=== PATIENT | male | born 1935 | race Caucasian/White ===

== ENCOUNTER → 2016-05-01 | Outpatient (CLI) | payer BC ==
[~2016-05-01] MED LIST: CLB200 PO; DVNC160 PO; HYDR0.5T PO; INSDGI SC; METO5TAB25 PO; MULT-506 PO; NVLGI; OSTEOBIFLEX PO
[2016-05-03 06:07] LABS: ESTIMATED AVERAGE GLUCOSE 148 mg/dl; HA1C FLAG Normal (Normal)
== END | disposition home or self-care (01) ==
LOC: C.LAB 15:53
PROVIDERS: ATTEND Nurse Practitioner Adult Health
DX: E11.9 Type 2 diabetes mellitus without complications (principal)

== ENCOUNTER → 2016-05-13 | Outpatient (CLI) | payer BC ==
[2016-05-13 16:41] LABS: BASO % 0.2 %; BASO ABS # 0.01 K/uL (0-0.2); COMPLETE YES; EOS % 1.7 %; HEMATOCRIT 37.6 % (42-52); IG% 0.2 %; LYMPH % 23.1 %; MEAN CELL VOLUME 88.7 fL (80-100); MEAN CORPUSCULAR HEMOGLOBIN 31.4 pg (25-34); MEAN CORPUSCULAR HGB CONC 35.4 g/dl (32-36); MONO % 7.7 %; NEUT % 67.1 %; PLATELET COUNT 136 K/uL (130-400); RED BLOOD COUNT 4.24 M/uL (4.7-6.1); WHITE BLOOD COUNT 5.19 K/uL (4.8-10.8)
[2016-05-13 17:13] LABS: C-REACTIVE PROTEIN 0.43 mg/dl (0-0.29)
== END | disposition home or self-care (01) ==
LOC: C.LAB 15:22
PROVIDERS: ATTEND Pediatrics Pediatric Rheumatology
DX: M35.9 Systemic involvement of connective tissue, unspecified (principal)

== ENCOUNTER → 2016-07-26 | Outpatient (CLI) | payer BC ==
[2016-07-26 14:10] LABS: ESTIMATED AVERAGE GLUCOSE 137 mg/dl; HA1C FLAG Normal (Normal)
== END | disposition home or self-care (01) ==
LOC: C.LAB 12:01
PROVIDERS: ATTEND Nurse Practitioner Adult Health
DX: E11.9 Type 2 diabetes mellitus without complications (principal)

== ENCOUNTER → 2016-11-28 | Outpatient (CLI) | payer BC ==
[2016-11-29 07:00] LABS: ESTIMATED AVERAGE GLUCOSE 148 mg/dl; HA1C FLAG Normal (Normal)
== END | disposition home or self-care (01) ==
LOC: C.LAB 11:46
PROVIDERS: ATTEND Nurse Practitioner Adult Health
DX: E11.9 Type 2 diabetes mellitus without complications (principal)

== ENCOUNTER → 2016-12-02 | Outpatient (CLI) | payer BC ==
--- NOTE | 2016-12-02 11:01 | DIAGNOSTIC IMAGING REPORT ---
RIGHT SHOULDER MIN 2 VIEWS ROUTINE CLINICAL HISTORY: 81 years-old Male presenting with BILATERAL SHOULDER PAIN, GLUTEAL TENDINITIS Right. TECHNIQUE: Internal rotation, external rotation, and Grashey views of the right shoulder were obtained. COMPARISON: None. FINDINGS: Calcification along the superior aspect of the greater tubercle could suggest calcific tendinitis. Acromioclavicular and glenohumeral joints congruent. Mild degenerative changes of the acromioclavicular and glenohumeral joint suggested. Minimal superior subluxation of the humeral head. No acute fracture. IMPRESSION: 1. Findings suggestive of calcific tendinitis of the rotator cuff. 2. Mild degenerative changes of the glenohumeral and acromioclavicular joints. 3. No acute osseous injury. Electronically signed by: Feng Cam M.D. 12/02/2016 10:59 AM Dictated Date/Time: 12/02/2016 10:57 AM
--- NOTE | 2016-12-02 11:04 | DIAGNOSTIC IMAGING REPORT ---
LEFT SHOULDER MIN 2 VIEWS ROUTINE CLINICAL HISTORY: 81 years-old Male presenting with BILATERAL SHOULDER PAIN, GLUTEAL TENDINITIS. TECHNIQUE: Internal rotation, external rotation, and Grashey views of the left shoulder were obtained. COMPARISON: None. FINDINGS: No acute fracture or subluxation. Acromioclavicular and glenohumeral joints congruent. Mild degenerative changes of these joints may be present. Regional soft tissues within normal limits. IMPRESSION: No acute osseous injury. Mild degenerative changes of the glenohumeral and acromioclavicular joint suggested. Electronically signed by: Feng Cam M.D. 12/02/2016 11:02 AM Dictated Date/Time: 12/02/2016 11:01 AM
== END | disposition home or self-care (01) ==
LOC: C.RAD1850 10:27
PROVIDERS: ATTEND Internal Medicine Rheumatology
DX: M25.512 Pain in left shoulder (principal); M76.00 Gluteal tendinitis, unspecified hip; M62.89 Other specified disorders of muscle

== ENCOUNTER → 2017-01-10 | Outpatient (CLI) | payer BC ==
[2017-01-15 23:01] LABS: ANTI-CENTROMERE AB <1.0 NEG AI (<1.0 NEG); ANTI-SS-A <1.0 NEG AI (<1.0 NEG); ANTI-SS-B <1.0 NEG AI (<1.0 NEG); DNA ds CRITHIDIA NEGATIVE (NEGATIVE); Sm Antibody <1.0 NEG AI (<1.0 NEG)
== END | disposition home or self-care (01) ==
LOC: C.LAB 17:07
PROVIDERS: ATTEND Internal Medicine Rheumatology
DX: M35.9 Systemic involvement of connective tissue, unspecified (principal); M54.2 Cervicalgia; M75.30 Calcific tendinitis of unspecified shoulder

== ENCOUNTER → 2017-04-09 | Outpatient (CLI) | payer BC ==
[2017-04-11 07:38] LABS: HEMOGLOBIN A1C 7.3 % (4.5-5.6)
== END | disposition home or self-care (01) ==
LOC: C.LAB 14:59
PROVIDERS: ATTEND Nurse Practitioner Adult Health
DX: E11.9 Type 2 diabetes mellitus without complications (principal); Z79.4 Long term (current) use of insulin; C61 Malignant neoplasm of prostate

== ENCOUNTER → 2017-04-13 | Outpatient (CLI) | payer BC | END | disposition home or self-care (01) | LOC: C.LAB 15:16 | PROVIDERS: ATTEND Urology | DX: C61 Malignant neoplasm of prostate (principal) ==

== ENCOUNTER → 2017-04-13 | Outpatient (CLI) | payer BC ==
[2017-04-13 17:03] LABS: HEMATOCRIT 36.3 % (42-52); HEMOGLOBIN 12.8 g/dL (14.0-18.0); MEAN CORPUSCULAR HEMOGLOBIN 32.1 pg (25-34); MEAN CORPUSCULAR HGB CONC 35.3 g/dl (32-36); MEAN PLATELET VOLUME 12.1 fL (7.4-10.4); PLATELET COUNT 119 K/uL (130-400); RED CELL DISTRIBUTION WIDTH CV 12.3 % (11.5-14.5); RED CELL DISTRIBUTION WIDTH SD 41.2 fL (36.4-46.3); WHITE BLOOD COUNT 4.31 K/uL (4.8-10.8)
[2017-04-13 17:04] LABS: BASO % 0.7 %; BASO ABS # 0.03 K/uL (0-0.2); EOS % 1.9 %; EOS ABS # 0.08 K/uL (0-0.5); IG# 0.01 K/uL (0.00-0.02); LYMPH % 25.5 %; MONO % 9.5 %; MONO ABS # 0.41 K/uL (0.11-0.59); NEUT % 62.2 %; NEUT ABS # 2.68 K/uL (1.4-6.5)
== END | disposition home or self-care (01) ==
LOC: C.LAB 15:14
PROVIDERS: ATTEND Pediatrics Pediatric Rheumatology
DX: M35.9 Systemic involvement of connective tissue, unspecified (principal)

== ENCOUNTER → 2017-06-02 | Outpatient (CLI) | payer BC ==
[2017-06-02 17:09] LABS: BLOOD UREA NITROGEN 21 mg/dl (7-18); CALCIUM 8.7 mg/dl (8.5-10.1); CARBON DIOXIDE 30 mmol/L (21-32); CREATININE 1.06 mg/dl (0.60-1.40); GLUCOSE 184 mg/dl (70-99); SODIUM 135 mmol/L (136-145)
== END | disposition home or self-care (01) ==
LOC: C.LAB 16:11
PROVIDERS: ATTEND Internal Medicine
DX: M79.1 Myalgia (principal)

== ENCOUNTER → 2017-10-31 | Outpatient (CLI) | payer BC ==
[2017-11-01 06:00] LABS: HEMOGLOBIN A1C 7.7 % (4.5-5.6)
== END | disposition home or self-care (01) ==
LOC: C.LAB 17:16
PROVIDERS: ATTEND Nurse Practitioner Adult Health
DX: E11.9 Type 2 diabetes mellitus without complications (principal); Z79.4 Long term (current) use of insulin

== ENCOUNTER 2021-09-14 05:29 | Observation (INO) ==
--- NOTE | 2021-08-13 14:50 | PAT Medication Instructions ---
Medication Instructions Date of Service August 13, 2021 Home Medications Medication Instructions Recorded Dexcom G6 Redevelopment Specialist (blood-glucose #1 ea NS 04/10/19 meter,continuous) Dexcom G6 Transmitter #1 ea NS 04/10/19 (blood-glucose transmitter) Dexcom G6 Sensor (blood-glucose #3 ea NS 10/16/19 sensor) blood sugar diagnostic (OneTouch #400 ea 04/15/20 Verio test strips) BD Veo Insulin Syr (half unit) 0.3 #600 ea NS 10/02/20 mL 31 gauge x 15/64" (insulin syr/ndl U100 half edilma) chlorthalidone 25 mg tablet 25 mg PO DAILY #90 tab 05/29/21 pen needle, diabetic 32 gauge x #300 ea 06/04/2132" (BD Ultra-Fine Ryanne Pen Needle) escitalopram oxalate 10 mg tablet 10 mg PO QAM #90 tab 07/20/21 losartan 100 mg tablet 50 mg PO DAILY #90 tab 07/28/21 diclofenac sodium 1 % topical gel 4 g TOPICAL QID PRN #100 g 08/04/21 cyanocobalamin (vitamin B-12) 1,000 mcg capsule 1,000 mcg PO QAM ketorolac 0.5 % eye drops 1 drops OP QAM prednisolone acetate 1 % eye drops,suspension 1 drops OP Q OTHER DAY Dexcom G6 Redevelopment Specialist (blood-glucose meter,continuous) #1 ea Dexcom G6 Transmitter (blood-glucose transmitter) #1 ea Dexcom G6 Sensor (blood-glucose sensor) #3 ea blood sugar diagnostic (OneTouch Verio test strips) [id number] 5 mg-zeaxanth 1 mg-bilberry 7.5 mg-herbal capsule (Macular Health Formula) 1 cap PO QAM cholecalciferol (vitamin D3) 125 mcg (5,000 unit) capsule 125 mcg PO QAM BD Veo Insulin Syr (half unit) 0.3 mL 31 gauge x 15/64" (insulin syr/ndl U100 half edilma) fluticasone propionate 50 mcg/actuation nasal spray,suspension 1 spray INTRANASAL BID PRN chlorthalidone 25 mg tablet 25 mg PO DAILY pen needle, diabetic 32 gauge x 5/32" (BD Ultra-Fine Ryanne Pen Needle) escitalopram oxalate 10 mg tablet 10 mg PO QAM losartan 100 mg tablet 50 mg PO DAILY diclofenac sodium 1 % topical gel 4 g TOPICAL QID PRN insulin glargine 100 unit/mL subcutaneous solution (Lantus U-100 Insulin) 13 unit SQ HS Continue as directed ketorolac 0.5 % eye drops 1 drops OP QAM prednisolone acetate 1 % eye drops,suspension 1 drops OP Q OTHER DAY STOP taking 2 weeks before surgery [id number] 5 mg-zeaxanth 1 mg-bilberry 7.5 mg-herbal capsule (VisiQuate Health Formula) 1 cap PO QAM STOP taking 24 hours before surgery diclofenac sodium 1 % topical gel 4 g TOPICAL QID PRN DO NOT take the morning of surgery cyanocobalamin (vitamin B-12) 1,000 mcg capsule 1,000 mcg PO QAM cholecalciferol (vitamin D3) 125 mcg (5,000 unit) capsule 125 mcg PO QAM chlorthalidone 25 mg tablet 25 mg PO DAILY losartan 100 mg tablet 50 mg PO DAILY Take morning of surgery With a small sip of water, OTHERWISE NOTHING TO EAT OR DRINK AFTER MIDNIGHT: fluticasone propionate 50 mcg/actuation nasal spray,suspension 1 spray INTRANASAL BID PRN(if needed) escitalopram oxalate 10 mg tablet 10 mg PO QAM Take evening before surgery fluticasone propionate 50 mcg/actuation nasal spray,suspension 1 spray I NTRANASAL BID PRN(if needed) insulin glargine 100 unit/mL subcutaneous solution (Lantus U-100 Insulin) 13 unit SQ HS Other Notes If you have any questions please call us at [phone] or [phone] or [phone] or [phone]
--- NOTE | 2021-08-19 15:05 | Anesthesiology Consultation ---
Date of Service August 19, 2021 Assessment & Plan (1) Encounter for pre-operative examination: Chart Review Chart Review: Acceptable Risk for Surgery (pending cardio clearance (08/21/21) and preop Covid testing results ) and Patient seen in Pre Admission Testing Pt states that his Apple watch will report his HR going from 50 bpm to 120- 130bpms in the middle of the night while sleeping. Pt concerned with tachycardia. Did have NS V-tach in early recovery on 05/2020 stress ECHO. Will refer patient to cardio for evaluation to ensure further work up not needed prior to surgery. Pt scheduled for cardio appt 08/21/21 at 1115am- pt aware. Benadryl allergy - Check BSG AM DOS Per PAT appt on 08/19/21, patient denies any recent travel or large group activities. No known Covid positive exposures or Covid related symptoms. No known Covid infection in the past 90 days. Pt is vaccinated for Covid. Preop Covid testing scheduled 09/10/21 = will await results. Educated on importance of self quarantining, social distancing and wearing mask in public for the patient one week prior to surgery and after Covid testing done History Surgery Operation Date: 09/14/21 07:00 Proposed Procedures p Right Total Knee Arthroplasty - Ramone Rogers MD Height/Weight Height: 5 ft 9 in Weight: 85.8 kg Allergies Allergy/AdvReac Type Severity Reaction Status Date / Time pregabalin [From Lyrica] Allergy Unknown Unknown Verified 08/13/21 13:47 diphenhydramine AdvReac Unknown hyperactive Verified 08/18/21 09:20 [From Benadryl Allergy] prednisone AdvReac Unknown hyperglycem Verified 08/18/21 09:20 ia spironolactone AdvReac Unknown gynecomasti Verified 08/18/21 09:20 a testosterone AdvReac Unknown gynecomasti Verified 08/18/21 09:20 a BETADINE;IODINE Allergy Unknown Unknown Uncoded 06/03/21 09:17 beta blockers AdvReac Unknown Depression Uncoded 08/18/21 09:20 Medications Home Medications Medication Instructions Recorded Confirmed Last Taken cyanocobalamin (vitamin B-12) 1,000 mcg PO QAM cap 11/14/18 08/13/21 06/18/20 09:30 1,000 mcg capsule ketorolac 0.5 % eye drops 1 drops OP QAM ml 12/05/18 08/13/21 Unknown prednisolone acetate 1 % eye 1 drops OP Q OTHER DAY ml 12/05/18 08/13/21 06/18/20 drops,suspension Dexcom G6 Bracer (blood-glucose #1 ea NS 04/10/19 06/03/21 Unknown meter,continuous) Dexcom G6 Transmitter #1 ea NS 04/10/19 06/03/21 Unknown (blood-glucose transmitter) Dexcom G6 Sensor (blood-glucose #3 ea NS 10/16/19 06/03/21 Unknown sensor) blood sugar diagnostic (OneTouch #400 ea 04/15/20 06/03/21 Unknown Verio test strips) jwbaidtq-cvk-gixsqf 5 mg-zeaxanth 1 cap PO QAM cap 05/13/20 08/13/21 06/18/20 09:30 1 mg-bilberry 7.5 mg-herbal capsule ([employer] Formula) cholecalciferol (vitamin D3) 125 125 mcg PO QAM 05/29/20 08/13/21 06/18/20 09:30 mcg (5,000 unit) capsule BD Veo Insulin Syr (half unit) 0.3 #600 ea NS 10/02/20 06/03/21 Unknown mL 31 gauge x 15/64" (insulin syr/ndl U100 half edilma) fluticasone propionate 50 1 spray INTRANASAL BID PRN g 01/27/21 08/13/21 Unknown mcg/actuation nasal spray,suspension chlorthalidone 25 mg tablet 25 mg PO DAILY #90 tab 05/29/21 08/13/21 Unknown escitalopram oxalate 10 mg tablet 10 mg PO QAM #90 tab 07/20/21 08/13/21 Unknown losartan 100 mg tablet 50 mg PO DAILY #90 tab 07/28/21 08/13/21 Unknown diclofenac sodium 1 % topical gel 4 g TOPICAL QID PRN #100 g 08/04/21 08/13/21 Unknown insulin glargine 100 unit/mL 13 unit SQ HS 08/13/21 08/13/21 Unknown subcutaneous solution (Lantus U-100 Insulin) insulin aspart (niacinamide) 25 unit SUBCUT DAILY 90 Days #30 ml 08/18/21 Unknown (U-100) 100 unit/mL subcutaneous solution (Fiasp U-100 Insulin) Past Medical History Medical History Abnormal EKG 06/06/20 EKG showing LVH with QRS widening- DSE (ordered by cardio) was done 06/17/20 showing wall motion abnormalities seen at peak infusion involving the septum and inferior wall, unclear if it was related to ventricular ectopy or true ischemia. Per cardio addendum 06/08/20= "Based on the fact that patient did not have chest pain or ST deviations despite a HR in the 130's during DSE -- patient is an intermediate cardiac risk for his upcoming umbilical hernia repair." Anxiety DM type 2 (diabetes mellitus, type 2) IDDM Follows with endo Glucose stable per patient Hearing deficit BL WILSON Bilateral hearing aids History of obstructive sleep apnea No longer uses CPAP Was re-tested twice with sleep study- no longer has ALEISHA History of pressure ulcer Hx of of lower back ulcer (2007)- did see wound clinic- ulcer has healed History of prostate cancer 2002; s/p prostatectomy No chemo or XRT HTN (hypertension) Hypercholesterolemia Interstitial lung disease Per lung biopsy in 2007 Breathing stable Macular degeneration Minimal Osteoporosis Spinal stenosis Undifferentiated connective tissue disease Follows with Liudmila Naylor PA (rheum)- no meds currently (on Prednisone and Enbrel in the past) Last seen 05/06/21- stable- f/u in one year Exercise / Class Metabolic Activity III < 4 Walking/Shop/Light housework (one flight of stairs - no chest pain, mild SOB ) Past Family History Family History Brother Cancer Mother Cancer Other Breast cancer No family history of adverse response to anesthesia Denies family history of Ovarian cancer Prostate cancer Myocardial infarction Colorectal cancer Past Surgical History Surgical History H/O umbilical hernia repair Ventral hernia repair (06/19/20): LMA#5 at [facility]. No issues per post-op anesthesia progress note. History of cataract surgery L/R History of prostate biopsy History of prostatectomy History of thoracentesis PT UNSURE Status post lung surgery PT UNSURE- DONE AT [facility] Past Anesthesia History No Hx of Anesthesia Complications and No Family Hx of Anesthesia Complications History of PONV No Hx of PONV and No Hx of Motion Sickness Social History Smoking Status: Former smoker Do You Dip or Chew Tobacco: No Smoking End Date: 60 YRS AGO Hx Alcohol Use: Yes Alcohol type: wine alcohol intake frequency: 0-2 drinks per day (1 glass of wine/night ) Hx Substance Use: No substance use type: does not use Review of Systems Tachycardia at night Cough x years- stable Patient denies chest pain, shortness of breath, dyspnea on exertion, cough, wheezing. No hx of seizures, stroke, HI. No hx of blood clots or blood transfusions Physical Exam Vital Signs VITALS BP 121/67 P 73 TEMP 98.3 SP02 95% RESP 16 Constitutional no acute distress ENMT Mouth: + small oral opening; no TMJ clicking Thyromental Distance: > or= 3.5 Finger Breadths (3.5) Mallampati Class: II Neck + limited neck extension (mild to moderate ) Respiratory normal respiratory effort; no respiratory distress Auscultation: lungs clear to auscultation bilaterally; no wheezes Cardiovascular Rate/Rhythm: regular rate and regular rhythm Heart Sounds: no murmur Vessels: no carotid bruit Heart sounds mildly diminished throughout Musculoskeletal Spine: + pain with cervical ROM (mild stiffness ) Extremities: extremities normal to inspection Psychiatric Orientation: alert Lab Results Anesthesia Preop Results Results Anesthesia Widget: WBC 4.87 K/uL (4.8-10.8) 08/19/21 Hgb 12.2 g/dL (14.0-18.0) L 08/19/21 Hct 34.7 % (42-52) L 08/19/21 Plt 106 K/uL (130-400) L 08/19/21 Na 141 mmol/L (136-145) 08/19/21 K 3.2 mmol/L (3.5-5.1) L 08/19/21 Cl 105 mmol/L (98-107) 08/19/21 CO2 28 mmol/L (21-32) 08/19/21 BUN 33 mg/dl (6-23) H 08/19/21 Creat 1.20 mg/dl (0.6-1.4) 08/19/21 Glucose Level 177 mg/dl (70-99(Fasting)) H 08/19/21 PT 10.9 Seconds (9.0-12.0) 08/19/21 PTT 24.8 Seconds (21.0-31.0) 08/19/21 INR 1.0 (0.9-1.1) 08/19/21 HA1c 7.3 % (4.5-5.6) H 08/19/21 Blood Type A Positive 08/19/21 Antibody Screen NEGATIVE 08/19/21 Testing Laboratory Results Anemia chronic and stable Thrombocytopenia- chronic and stable Electrocardiogram Date: 08/19/21 Findings: + NSR @ (67bpm ) Left axis deviation LVH with QRS widening When compared to EKG from June 06, 2020no significant changes found per cardiology. Chest X-Ray Date: 08/19/21 Findings: + NAD The cardiomediastinal silhouette is unremarkable noting atherosclerotic calcification of the thoracic aorta. There is bibasilar scarring/atelectasis. Stress Test Date: 06/17/20 Type: DSE Resting LV Function: normal Nondiagnostic dobutamine echocardiogram due to failure to achieve target heart rate. Frequent ventricular ectopic beats including brief runs of nonsustained VT and early recovery. Wall motion abnormalities were seen at peak infusion involving the septum and inferior wall, unclear if this was related to ventricular ectopy or true isc hemia. Mild concentric LVH. Mild MR. Mild TR. Other Testing Aortailiac arterial duplex evaluation 08/14/2020 = mild ectasia of the abdominal aorta with mild atherosclerotic plaque. No evidence of stenosis with the aortic/iliac system. Lower extremity arterial duplex 07/14/2020 = <50% stenosis RT external iliac to popliteal artery. RT Sharron A, FOOT ROENTGENOLOGIST patent. JUSTIN occluded distally. <50% stenosis LT external iliac to popliteal artery. LT JUSTIN 75-99% stenosis. LT Sharron A, FOOT ROENTGENOLOGIST patent.
--- NOTE | 2021-09-10 22:52 | History and Physical Report ---
DATE OF ADMISSION: 09/14/2021 CHIEF COMPLAINT: Bilateral knee pain and discomfort, right side greater than left. HISTORY OF PRESENT ILLNESS: The patient is an 86-year-old fairly independent and active gentleman who has been a long-term patient of mine who presents now for surgical treatment of his right knee. I have been following him for years, putting shots in his knees, which have just become less successful over time. The steroid shots increase his blood glucose markedly. The gel shots have become less effective and the last shot did not work at all. The right knee is bothering him more than the left. It is hindering his ability to maintain an active lifestyle, which he truly values. He was pretty adamant about having his knee fixed. He does have a history of an autoimmune disorder, which is under pretty well good control. PAST MEDICAL HISTORY: Significant for, 1. History of unspecified autoimmune disorder, which has led to some pulmonary issues, but no current symptoms. 2. Hypertension. 3. Diabetes. 4. Prostate cancer, status post resection without recurrence. PAST SURGICAL HISTORY: Includes, 1. Prostate cancer. 2. Status post lung surgery for his autoimmune disorder. 3. Hernia. ALLERGIES: None. CURRENT MEDICATIONS: Includes, 1. Amlodipine. 2. Insulin. 3. Chlorthalidone. 4. Vitamin D3. 5. Vitamin B12. 6. Dexcom sensor. 7. Topical diclofenac. 8. Escitalopram. 9. Fluticasone nasal spray. 10. Insulin. 11. Losartan. 12. Various eyedrops for his eyes, SOCIAL HISTORY: An 86-year-old male. He is a . He lives in [place]. Lives alone. Does not smoke. FAMILY HISTORY: Noncontributory. REVIEW OF SYSTEMS: Significant for long-term diabetes. Denies any chest pain or recurrent shortness of breath. 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 PHYSICAL EXAMINATION: GENERAL: Shows a pleasant, healthy elderly male. Looks younger than stated age. HEENT: Benign. NECK: Supple. No lymphadenopathy. LUNGS: Clear to auscultation. HEART: Has a regular rate and rhythm. ABDOMEN: Soft, nontender, nondistended. EXTREMITIES: Grossly neurovascularly intact except as follows: Examination of the right knee reveals the patient walks with a slight bit of a limp. He has got varus alignment to his knee. He has got bony hypertrophy medially. He is tender over the medial joint line. Small knee effusion. Range of motion about 5 degrees short of full extension to 120 degrees of flexion. There is no instability. No pain with hip motion. 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 He has got complete loss of medial joint space in both knees. A little bit of tibial femoral subluxation and subchondral sclerosis. He has got significant patellofemoral disease, more on the right than the left. ASSESSMENT: An 86-year-old male with a history of multiple medical issues under pretty well good control. He is a long-term diabetic and has this autoimmune disorder, which is under control and relatively asymptomatic now. He is limited by his knee pain and would like to get his knee fixed. PLAN: We are going to proceed with right knee replacement. The risks and benefits of this procedure were explained to the patient and include but not limited to DVT, PE, , infection, neurological injury, vascular injury, bleeding problem, pain, limited range of motion, stiffness, failure to relieve symptoms, incomplete relief of symptoms, need for further surgery in the future, etc. The patient understands and desires to proceed. Informed consent was obtained. He does have this autoimmune disorder along with diabetes. We are going to probably put some vancomycin in the cement to prevent his risk for infection. He has seen cardiology and he has been cleared. He had a stress echo, which showed no signs of real ischemia recently. Creatinine is a little bit elevated. We will have to follow this and be careful with NSAID use. He is hoping to be discharged either to [facility] or [facility] [place] for a short rehabilitation stay. Job ID: [id number] [facility]
[2021-09-14] MEDS ORDERED: LR 500ML BOLUS, THEN 15ML/HR IV SCH (06:00)
[2021-09-14] MEDS ORDERED: LR 60ML/HR IV SCH (06:00)
[2021-09-14] MEDS ORDERED: FAMOTIDINE 20 MG TAB PO SCH (06:00)
[2021-09-14] MEDS ORDERED: TRANEXAMIC ACID 1,000 MG **IV Intra-op IV SCH (06:00)
[2021-09-14] MEDS ORDERED: ACETAMINOPHEN 500 MG TAB PO SCH (06:00)
[2021-09-14] MEDS ORDERED: METOCLOPRAMIDE HCL 10 MG TABLET PO SCH (06:00)
[2021-09-14] MEDS ORDERED: BUPIVACAINE LIPOSOME/PF 266 MG, BUPIVACAINE/EPINEPHRINE 50 ML, SODIUM CHLORIDE 0.9% 30 ... INFIL SCH (06:00)
[2021-09-14] MEDS ORDERED: ceFAZolin 2000MG 2,000 MG/15 ML SYR IV SCH (06:00)
[2021-09-14] MEDS ORDERED: CeleBREX 200 MG CAP PO SCH (06:00)
[2021-09-14] MEDS ORDERED: ROPIVACAINE 0.5% 5 MG/ML 30 ML VIAL ONE (06:23)
[2021-09-14] MEDS ORDERED: BUPIVACAINE 0.5 % 5 MG/1 ML PF 10ML VIAL ONE (06:23)
[2021-09-14] MEDS ORDERED: PROPOFOL IV EMULSION 10 MG/ML 20 ML VIAL IV ONE (06:25)
[2021-09-14] MEDS ORDERED: MIDAZOLAM HCL 1 MG/ML 2ML VIAL ONE ×2 (06:25→06:50)
[2021-09-14] MEDS ORDERED: SODIUM CHLORIDE 0.9% PF 50 ML VIAL ONE (06:42)
[2021-09-14] MEDS ORDERED: BUPIVACAINE/EPINEPHRINE 0.25% 1:200,000 30 ML VIAL ONE (06:42)
[2021-09-14] MEDS ORDERED: BUPIVACAINE LIPOSOME 1.3% 266 MG/20 ML VIAL ONE (06:42)
[2021-09-14] MEDS ORDERED: KETOROLAC 30 MG/ML VIAL IV PRN (06:47)
[2021-09-14] MEDS ORDERED: ONDANSETRON INJ 2 MG/ML 2 ML VIAL IV PRN ×2 (06:47→10:57)
[2021-09-14] MEDS ORDERED: ePHEDrine sulfate 50 MG/ML AMP IV PRN (06:47)
[2021-09-14] MEDS ORDERED: HYDROmorphone INJ 1 MG/ML SYRINGE IV PRN (06:47)
[2021-09-14] MEDS ORDERED: ATROPINE SULFATE 0.1 MG/ML 10ML SYR IV PRN (06:47)
--- NOTE | 2021-09-14 06:55 | History & Physical Bridge Note ---
Date of Service September 14, 2021 History & Physical Bridge Note I have examined the patient, reviewed the History & Physical and in the interval since the performance of the History & Physical I have noted the following changes of clinical significance: no changes noted
[2021-09-14] MEDS ORDERED: VANCOMYCIN HCL 1000MG/20ML VIAL ONE (07:30)
[2021-09-14] MEDS ORDERED: PHENYLEPHRINE HCL 10 MG/ML VIAL ONE (08:05)
[2021-09-14] MEDS ORDERED: ePHEDrine sulfate 50 MG/ML AMP ONE (08:05)
--- NOTE | 2021-09-14 09:07 | Operative Report ---
PG Post Operative Report Pre & Post Diagnosis Operation Date: 09/14/21 07:00 Pre-Op Diagnosis: Right Knee Advanced Degenerative Joint Disease Post-Op Diagnosis: Right Knee Advanced Degenerative Joint Disease I identified the patient and participated in the time-out.: Yes Procedure Operation Date: 09/14/21 07:00 Actual Procedures p Right Total Knee Arthroplasty(Right) - Ramone Rogers MD Surgeon Ramone Rogers MD Mental Hygienist Jay Montgomery PA-C Estimated Blood Loss 50 Findings Consistent with Post-Op Diagnosis Operative findings revealed advanced right knee tricompartment DJD. He had pretty extensive grade 4 [id number] disease in all 3 compartments. He had a varus deformity to his knee. Moderate-sized joint effusion. Fluids 1000 cc Specimens Right knee sent for pathology Drains None Anesthesia Type Spinal MAC Complications none Disposition Accompanied Patient To Recovery: No Indications Patient is an 86-year-old long-term patient of mine whose had a long history of bilateral knee pain discomfort right side greater than left. We have been treating for the past 10 years with for arthritic disease. Has failed conservative measures. He has been trying to live an independent lifestyle but have more difficulty due to his knee pain. He failed conservative measures and elected proceed with surgical treatment. The patient's been medically optimized. Description of Procedure Operative implants consist of: 1 Biomet Vanguard size 70 right posterior stabilized femoral component. 2. Biomet size 75 tibial tray. 3. 10 mm posterior stabilized polyethylene insert. 4. 34 x 8 and half all Paller patella. The patient was taken to the operating, identified, placed on the operating table supine position protectors were properly padded. IV antibiotics tried by anesthesia team. A spinal anesthetic and abductor canal block had provided in the holding area. Waggoner catheter was placed in sterile fashion. Right thigh tent was then placed in the right lower extremities then prepped and draped in usual sterile fashion. The right leg was elevated exsanguinated with use of an Esmarch in terms playset 300 mmHg. An anterior approach of the right knee was then performed to longitudinal incision centered over the patella. Sharp dissection was carried through subcutaneous tissue down the extensor mechanism. Medial parapatellar arthrotomy incision was made. Some subperiosteal dissection was carried out medially. The fat pad was dissected from Neath patella tendon. Lateral patellofemoral ligament was released. Patella subluxated laterally and the knee was flexed. The osteophytes taken off distal femur. The ACL and PCL were then released from distal femur and the tibia subluxated anteriorly. The external tibial alignment jig was then placed the interface the tibia and adjusted 16 mm medially. The proximal tibia was then cut to take about a millimeter bone from most deficient aspect of the medial tibial plateau. Some osteophytes taken off medial and posterior medially. The tibia sized to a size 75. We did downsize this in order to get appropriate rotation. Attention drawn the femur. The distal femur was entered with a sharp drill. Intramedullary canal was suction. A right 6 degree valgus cutting guide was placed. Distal femoral cutting block was pinned in place. Distal femoral cut was made to take an additional 3 mm of bone off distal femur. The femur was then sized to a size 70. The AP cutting block was pinned parallel to the epicondylar axis which was 4 degrees of external rotation. The anterior cut, anterior chamfer, posterior cut, posterior chamfer cuts were made. The box cutting guide was placed in the just slight laterally. The box cut was made. The knee was flexed. The remnants of the medial and lateral menisci were excised. The osteophytes were taken off the posterior aspect of femur. A trial femoral component was placed. The tibial tray was pinned in maximum external rotation and the drill and stem punch used to create defect in proximal tibia for the tibial tray. Knee was t hen trialed and the 10 mm insert fit most appropriately. Attention drawn the patella. The patella was cleaned of all soft tissues. Patella thickness measured 25 mm in thickness was cut down to 15. Was sized to a size 34 patella. The lug holes were drilled for the 34 patella. The lateral osteophytes removed. Patella button was placed. Knee was taken through range of motion patella tracked n icely with no thumbs test. Attention drawn to placing permanent components. Nupathe all trial components were removed. Bone plug was placed in the distal femur limit blood loss. Double batch Palacos G cement was mixed. I did add an additional gram of vancomycin due to his history of autoimmune disease along with diabetes. Biomet Morega Systemsguard size 70 right posterior stabilized femoral component, size 75 tibial tray, a 10 mm posterior stabilized polyethylene insert, and a 34 x 8 and half all Paller patella then cemented in place. The knee was brought out into full extension total cement hardened. Final cement check was then performed. Pericapsular tissues were injected with total of 1 cc of combination of 20 of Exparel, 30 cc normal saline, 50 cc of quarter percent Marcaine with epinephrine. Patient did receive 1 g tranexamic acid. The tourniquet was then let down for final turn time of 60 minutes. Hemostasis assured use electrocautery. Extensor mechanism closed with combination 1 PDS suture #1 Vicryl suture in [id number] fashion. Extensor mechanism checked found to be intact with subcutaneous tissue then closed with 2 Dexon suture in a buried interrupted fashion skin was closed with skin sky. Legs then cleaned and dried a sterile dressing was Xeroform, 4 x 4's, sterile cast padding, Israel bandage were applied. Patient then transferred to the recovery room in stable condition. The patient tolerated the procedure well and there were no complications. Jay Montgomery, my physician shop assistant, was present for the entire procedure. His assistance was essential and required for appropriate patient positioning, prepping and draping, surgical exposure, performing the technical details of the operation, placement the implants, closure of the wound, and placement of the sterile bandage. I attest to the content of the Intraoperative Record and any orders documented therein. Any exceptions are noted below.
--- NOTE | 2021-09-14 09:45 | XRay Report ---
XR knee RT 1 or 2V routine CLINICAL HISTORY: Postoperative evaluation. COMPARISON: Knee radiographs May 07, 2021. FINDINGS: Alignment of the total right knee arthroplasty is anatomic. No periprosthetic fracture or unexpected radiopaque foreign body. There are skin sky. IMPRESSION: Expected findings following total right knee arthroplasty. ACT 112: Negative or not required by law. Electronically signed by: Bryant Lisa M.D. 09/14/2021 9:44 AM
[2021-09-14] MEDS ORDERED: CARBOHYDRATES FOR HYPOGLYCEMIA PO PRN (10:57)
[2021-09-14] MEDS ORDERED: ALUMINUM/MAGNESIUM SUSP 30 ML UDC PO PRN (10:57)
[2021-09-14] MEDS ORDERED: MULTIVITAMIN TAB PO SCH (10:57)
[2021-09-14] MEDS ORDERED: bisacodyL 10 MG SUPP PR PRN (10:57)
[2021-09-14] MEDS ORDERED: [UNRECOGNIZED DRUG - OTHER] SQ SCH (10:57)
[2021-09-14] MEDS ORDERED: METOCLOPRAMIDE HCL INJ 5 MG/ML 2 ML VIAL IV PRN (10:57)
[2021-09-14] MEDS ORDERED: GLUCOSE 40% GEL 15 GM TUBE PO PRN (10:57)
[2021-09-14] MEDS ORDERED: GLUCOSE 10 TABS/TUBE PO PRN (10:57)
[2021-09-14] MEDS ORDERED: TAMSULOSIN HCL 0.4 MG CAP PO PRN (10:57)
[2021-09-14] MEDS ORDERED: DEXTROSE 50% 50 ML SYRINGE IV PRN (10:57)
[2021-09-14] MEDS ORDERED: NALOXONE HCL 0.4 MG/1 ML VIAL/CARP IV PRN (10:57)
[2021-09-14] MEDS ORDERED: PHARMACY GLYCEMIC MGMT CONSULT PRN (10:57)
[2021-09-14] MEDS ORDERED: INSULIN ASPART 100 UNIT/ML SQ SCH (10:57)
[2021-09-14] MEDS ORDERED: GLUCAGON FOR INJ 1 MG VIAL SQ PRN (10:57)
--- NOTE | 2021-09-14 11:43 | Anesthesiology Progress Note ---
Date of Service September 14, 2021 Anesthesia Post Procedure Vital Signs Vital Signs: Temp Pulse Pulse Resp BP Pulse Ox 09/14/21 10:45 60 16 110/55 L 98 09/14/21 10:30 57 L 14 114/54 L 96 09/14/21 10:15 53 L 17 116/46 L 94 09/14/21 10:05 52 L 18 116/58 L 95 09/14/21 09:55 36.1 C L 59 L 19 129/50 L 96 09/14/21 09:45 36.1 C L 59 L 21 122/52 L 95 09/14/21 09:35 53 L 13 121/51 L 99 09/14/21 09:25 55 L 16 126/52 L 99 09/14/21 09:15 54 L 16 116/51 L 100 09/14/21 09:05 55 L 14 114/52 L 100 09/14/21 08:55 36.0 C L 58 L 15 109/55 L 99 09/14/21 06:05 36.7 C 66 20 129/71 97 Transfer of Care Handoff Completed per policy Notes Mental Status: alert / awake / arousable Patient Amnestic to Procedure: Yes Nausea / Vomiting: adequately controlled Pain: adequately controlled Airway Patency, RR, SpO2: stable & adequate BP & HR: stable & adequate Hydration State: stable & adequate Anesthetic Complications: no major complications apparent
[2021-09-14] MEDS: SODIUM CHLORIDE 0.9% 1000ML 1,000 ML IV SCH ×2 (12:37→22:51)
[2021-09-14] MEDS: CEROVITE ADV FORMULA TAB PO SCH (13:17)
[2021-09-14] MEDS: CHOLECALCIFEROL 5,000 UNITS 125 MCG TAB PO SCH (13:18)
[2021-09-14] MEDS: CHLORTHALIDONE 25 MG TAB PO SCH (13:18)
[2021-09-14] MEDS: ASPIRIN 81 MG ECTAB PO SCH ×2 (13:18→22:35)
[2021-09-14] MEDS: ESCITALOPRAM OXALATE 10 MG TAB PO SCH (13:19)
[2021-09-14] MEDS: LOSARTAN POTASSIUM 50 MG TAB PO SCH (13:19)
[2021-09-14] MEDS: ACETAMINOPHEN 500 MG TAB PO SCH ×2 (13:20→22:42)
[2021-09-14] MEDS: DOCUSATE SODIUM 100 MG CAP PO SCH ×2 (13:20→22:35)
[2021-09-14] MEDS: CYANOCOBALAMIN (B-12) 500 MCG TABLET PO SCH (13:20)
[2021-09-14] MEDS: KETOROLAC 0.5% OP SOLN 5 ML BTL OP SCH (13:21)
[2021-09-14] MEDS: prednisoLONE acetate 1% OP SUSP 5 ML BTL OP SCH (13:23)
[2021-09-14] MEDS: INSULIN ASPART PER UNIT SC SCH ×3 (13:39→20:28)
[2021-09-14] MEDS: TAPENTADOL HCL ER 50 MG TABCR PO SCH ×2 (14:10→22:41)
[2021-09-14] MEDS: ceFAZolin 2000MG 2,000 MG/15 ML SYR IV SCH ×2 (14:22→23:23)
--- NOTE | 2021-09-14 14:30 | Pharmacy Report ---
Pharmacy Glycemic Short Note 2 - Date of Service September 14, 2021 - Glycemic Short BSG Results (Last 24 hours): 09/14/21 09/14/21 09/14/21 05:40 08:58 13:07 POC Glucose 212 H 167 H 218 H OUTPATIENT ANTIDIABETIC REGIMEN: * Fiasp aspart insulin total 25 units daily * Lantus 15 units HS ASSESSMENT: * 86 y/o M admitted for right total knee arthroplasty. Patient with history of Type 2 diabetes managed at home on basal and bolus insulin. * Will continue basal and bolus insulin while admitted. * Lantus at HS ordered with 20% reduction from home dose. Re-assess tomorrow. * Novolog ordered based on wt and stress between 2 and 3. * Patient did not take his HS Lantus dose last night which explains BSGs above 200 mg/dl at AM and pre-lunch checks today. PLAN FOR INPATIENT GLYCEMIC CONTROL: * Basal insulin * Lantus 12 units SQ HS * Bolus insulin * NovoLog per scale ACHS or Q6hrs while NPO * Goal Range: Low 110 mg/dL - High 140 mg/dL * Correction Factor: 25 mg/dL/unit * Nutritional / Prandial insulin per carb ratio of 1 unit per 8 grams CHO consumed
[2021-09-14] MEDS ORDERED: TRANEXAMIC ACID / 0.7% NACL 1,000 MG/100 ML BAG IV SCH (15:00)
[2021-09-14] MEDS: ASCORBIC ACID 500 MG TAB PO SCH (16:53)
[2021-09-14] MEDS: oxyCODONE HCL IR 5 MG TAB (IMMEDIATE RELEASE) PO PRN (18:02)
[2021-09-14] MEDS: HYDROmorphone INJ 0.5 MG/0.5 ML SYR IV PRN (19:46)
[2021-09-14] MEDS ORDERED: INSULIN GLARGINE SOLOSTAR 100 UNITS/ML 3 ML PEN SQ SCH (21:00)
[2021-09-14] MEDS: SENNA 8.6 MG TAB PO SCH (22:34)
[2021-09-15] MEDS: oxyCODONE HCL IR 5 MG TAB (IMMEDIATE RELEASE) PO PRN ×3 (01:16→21:53)
[2021-09-15] MEDS: ACETAMINOPHEN 500 MG TAB PO SCH ×3 (06:07→21:45)
[2021-09-15] MEDS: HYDROmorphone INJ 0.5 MG/0.5 ML SYR IV PRN (06:11)
[2021-09-15 07:59] LABS: Hematocrit (blood only) 32.7 % (42-52); Hemoglobin 11.1 g/dL (14.0-18.0); Mean Corpuscular Hemoglobin 31.6 pg (25-34); Mean Corpuscular Hgb Conc 33.9 g/dL (32-36); Mean Corpuscular Volume 93.2 fL (80-100); Mean Platelet Volume 12.7 fL (7.4-10.4); Platelet Count 103 K/uL (130-400); RDW Coefficient of Variation 13.4 % (11.5-14.5); RDW Standard Deviation 45.7 fL (36.4-46.3); Red Blood Count 3.51 M/uL (4.7-6.1); White Blood Count 8.15 K/uL (4.8-10.8)
[2021-09-15 08:18] LABS: BUN Creatinine Ratio 20.8 (10-20); Calcium 7.8 mg/dl (8.5-10.1); Creatinine Clr Calc Pharmacy 43.9 ml/min; Est GFR (African American) 60.5 ml/min; Est GFR (Non-African American) 52.2 ml/min; Potassium 3.4 mmol/L (3.5-5.1)
[2021-09-15] MEDS: CYANOCOBALAMIN (B-12) 500 MCG TABLET PO SCH (09:13)
[2021-09-15] MEDS: ESCITALOPRAM OXALATE 10 MG TAB PO SCH (09:13)
[2021-09-15] MEDS: CHOLECALCIFEROL 5,000 UNITS 125 MCG TAB PO SCH (09:14)
[2021-09-15] MEDS: LOSARTAN POTASSIUM 50 MG TAB PO SCH (09:14)
[2021-09-15] MEDS: ASCORBIC ACID 500 MG TAB PO SCH ×2 (09:15→16:37)
[2021-09-15] MEDS: ASPIRIN 81 MG ECTAB PO SCH ×2 (09:15→20:23)
[2021-09-15] MEDS: CEROVITE ADV FORMULA TAB PO SCH (09:15)
[2021-09-15] MEDS: DOCUSATE SODIUM 100 MG CAP PO SCH ×2 (09:16→20:23)
[2021-09-15] MEDS: KETOROLAC 0.5% OP SOLN 5 ML BTL OP SCH (09:16)
[2021-09-15] MEDS: TAPENTADOL HCL ER 50 MG TABCR PO SCH ×2 (09:27→20:21)
[2021-09-15] MEDS: INSULIN ASPART PER UNIT SC SCH ×4 (09:28→21:42)
[2021-09-15] MEDS: INSULIN GLARGINE SOLOSTAR 100 UNITS/ML 3 ML PEN SQ SCH ×3 (09:29→21:44)
[2021-09-15] MEDS: CHLORTHALIDONE 25 MG TAB PO SCH (10:14)
[2021-09-15] MEDS ORDERED: POTASSIUM CHLORIDE CRTAB 20 MEQ TABCR PO ONE ×2 (11:13→18:00)
--- NOTE | 2021-09-15 13:27 | Pharmacy Report ---
Pharmacy Glycemic Short Note 2 - Date of Service September 15, 2021 - Glycemic Short BSG Results (Last 24 hours): 09/14/21 09/14/21 09/14/21 16:18 17:04 20:25 Glucose POC Glucose 238 H 256 H 115 H 09/15/21 09/15/21 09/15/21 04:20 07:16 07:48 Glucose 236 H POC Glucose 166 H 246 H 09/15/21 09/15/21 12:11 12:13 Glucose POC Glucose 350 H* 338 H* OUTPATIENT ANTIDIABETIC REGIMEN: * Fiasp aspart insulin total 25 units daily * Lantus 13 units HS HbA1c: 7.3% (08/19/21) ASSESSMENT: 09/15/21 * Patient has good outpatient glycemic control, he attributes current BSGs to anxiety/stress * Patient refused basal insulin last evening and again this morning * BSGs elevated today undoubtedly related to lack of basal insulin on board (did not take day prior to surgery either) * Discussed with patient, he will accept home dose of basal insulin today, but only if it is dosed at HS * Suspect that BSGs will improve once basal insulin is on board 09/14/21 * 86 y/o M admitted for right total knee arthroplasty. Patient with history of Type 2 diabetes managed at home on basal and bolus insulin. * Will continue basal and bolus insulin while admitted. * Lantus at HS ordered with 20% reduction from home dose. Re-assess tomorrow. * Novolog ordered based on wt and stress between 2 and 3. * Patient did not take his HS Lantus dose last night which explains BSGs above 200 mg/dl at AM and pre-lunch checks today. PLAN FOR INPATIENT GLYCEMIC CONTROL: * Basal insulin * Lantus 13 units SQ HS * Bolus insulin * NovoLog per scale ACHS or Q6hrs while NPO * Goal Range: Low 110 mg/dL - High 140 mg/dL * Correction Factor: 30 mg/dL/unit * Nutritional / Prandial insulin per carb ratio of 1 unit per 8 grams CHO consumed
--- NOTE | 2021-09-15 14:58 | Progress Notes ---
DATE OF SERVICE: 09/15/2021. SUBJECTIVE: An 86-year-old gentleman postoperative day 1 from a right knee replacement. He is doing reasonably well. He is having pain, but nothing out of the ordinary or unexpected. Therapy went ok ay. He is hoping to go to [facility] for rehabilitation in a longterm facility stay as baldomero campos lives by himself. Denies any chest pain or shortness of breath. OBJECTIVE: VITAL SIGNS: Temperature 36.4. Vital signs are stable. PHYSICAL EXAMINATION: GENERAL: Shows a pleasant, elderly male. He is sitting up in bed and looks pretty comfortable. EXTREMITIES: Examination of the right leg reveals the leg to be well aligned. Dressing is clean, dr y and intact. He can dorsiflex and plantarflex his foot appropriately. He is neurologically intact. LABORATORY DATA: Hemoglobin 11.1. Hematocrit 32.7. Electrolytes: Potassium 3.4. Everything else stable. ASSESSMENT: An 86-year-old gentleman, postoperative day 1 from right knee replacement, doing reasona jocy well. Pain is controlled. He is neurologically intact. Potassium is a little low and we supple mented that already. PLAN: 1. DVT prophylaxis includes thigh-high TEDs, SCDs, and aspirin twice a day. 2. PT, OT, weightbear as tolerated. Right total knee protocol. 3. Pain control, doing okay with current pain regimen. 4. Hypokalemia. We will supplement that and recheck his labs in the morning. 5. Disposition: He is hoping to be discharged to [facility] for a rehab/longterm faci lity stay. supervisor gate services working on this. Job ID: [id number]
[2021-09-15] MEDS: FLUTICASONE PROPIONATE NA SPR 16 GM BTL NAE PRN (20:21)
[2021-09-15] MEDS: SENNA 8.6 MG TAB PO SCH (20:23)
[2021-09-16] MEDS: ACETAMINOPHEN 500 MG TAB PO SCH ×3 (05:53→21:22)
[2021-09-16 08:20] LABS: BUN Creatinine Ratio 23.5 (10-20); Calcium 7.7 mg/dl (8.5-10.1); Creatinine Clr Calc Pharmacy 41.6 ml/min; Est GFR (African American) 56.6 ml/min; Est GFR (Non-African American) 48.8 ml/min; Potassium 3.9 mmol/L (3.5-5.1)
[2021-09-16] MEDS: CHOLECALCIFEROL 5,000 UNITS 125 MCG TAB PO SCH (09:35)
[2021-09-16] MEDS: LOSARTAN POTASSIUM 50 MG TAB PO SCH (09:35)
[2021-09-16] MEDS: CEROVITE ADV FORMULA TAB PO SCH (09:35)
[2021-09-16] MEDS: ESCITALOPRAM OXALATE 10 MG TAB PO SCH (09:35)
[2021-09-16] MEDS: ASPIRIN 81 MG ECTAB PO SCH ×2 (09:35→20:36)
[2021-09-16] MEDS: CYANOCOBALAMIN (B-12) 500 MCG TABLET PO SCH (09:35)
[2021-09-16] MEDS: ASCORBIC ACID 500 MG TAB PO SCH ×2 (09:35→17:34)
[2021-09-16] MEDS: KETOROLAC 0.5% OP SOLN 5 ML BTL OP SCH (09:36)
[2021-09-16] MEDS: prednisoLONE acetate 1% OP SUSP 5 ML BTL OP SCH (09:36)
[2021-09-16] MEDS: CHLORTHALIDONE 25 MG TAB PO SCH (09:36)
[2021-09-16] MEDS: INSULIN ASPART PER UNIT SC SCH ×5 (09:41→21:22)
[2021-09-16] MEDS: TAPENTADOL HCL ER 50 MG TABCR PO SCH ×2 (09:46→20:36)
[2021-09-16] MEDS: DOCUSATE SODIUM 100 MG CAP PO SCH ×2 (09:46→20:37)
--- NOTE | 2021-09-16 12:02 | Orthopedic Progress Note ---
Date of Service September 16, 2021 Assessment & Plan (1) Status post total right knee replacement: He was seen and examined by Dr. Rogers today. PT/OT wbat, total knee protocol. Pain is controlled. DVT prophylaxis: teds, scd's and aspirin D/c planning: He was hoping to go to rehab/[facility] for a few days and then has some family coming. Continue d/c planning: rehab vs home with home health later this week Subjective . 86 year old patient POD #2 from right TKA. Doing reasonably well. Having some knee pain. He has been ambulating with PT. No chest pain or shortness of breath. Review of Systems All systems reviewed & are unremarkable except as noted in HPI & below. Physical Exam . alert and oriented. NAD. VSS Right Leg: Dressing being changed. Able to do straight leg raise. Able to dorsiflex and plantarflex. NVI Results & Data Results & Data Laboratory Results . Diagnostic Findings . PG Care Time/CCT Total # of Minutes Spent Total Time Spent with Patient: Total time spent is greater than 50% in coordination of care (as documented) at patient's floor/unit and/or counseling patient: Coding Level of Care Code 47004 Post Operative Follow-Up Diagnoses Status post total right knee replacement Z96.651
[2021-09-16] MEDS: FLUTICASONE PROPIONATE NA SPR 16 GM BTL NAE PRN (16:15)
[2021-09-16] MEDS: MAGNESIUM HYDROXIDE SUSP 30 ML UDC PO PRN (17:34)
[2021-09-16] MEDS: oxyCODONE HCL IR 5 MG TAB (IMMEDIATE RELEASE) PO PRN (17:34)
[2021-09-16] MEDS: SENNA 8.6 MG TAB PO SCH (20:38)
[2021-09-16] MEDS: INSULIN GLARGINE SOLOSTAR 100 UNITS/ML 3 ML PEN SQ SCH (21:21)
[2021-09-17] MEDS: ACETAMINOPHEN 500 MG TAB PO SCH ×3 (05:55→21:35)
--- NOTE | 2021-09-17 08:58 | Progress Notes ---
DATE OF SERVICE: 09/17/2021. SUBJECTIVE: An 86-year-old gentleman now postop day 3 from right knee replacement. He is resting co mfortably. No new complaints. Slowly getting better. Denies any new complaints. OBJECTIVE: VITAL SIGNS: Temperature is 36.8. Vital signs are stable. GENERAL: Shows a pleasant, elderly male. He is lying in bed, looks pretty comfortable this morning. EXTREMITIES: Examination of the right leg reveals the dressing to be in place. Just a slight bit of serosanguineous drainage on his dressing. Some moderate swelling. He can dorsiflex and plantarflex his foot appropriately. ASSESSMENT: An 86-year-old gentleman postoperative day 3 from right knee replacement, doing reasonab ly well. We are just kind of waiting for placement. Lives by himself. His daughter is coming and may be able to assist in his care at home. PLAN: 1. DVT prophylaxis includes thigh-high TEDs, SCDs, and aspirin twice a day. 2. PT, OT, weightbear as tolerated. Right total knee protocol. 3. Pain control, doing okay with current pain regimen. 4. Disposition: He is orthopedically okay for discharge any time. [facility], [facility]. He is happy to go to [facility], but not a bed available until [facility]. A possible treatment option would be discharge to home on Tuesday when his daughter comes from [facility] to stay with him. We will have manager social media continue to work on this. Job ID: [id number]
[2021-09-17] MEDS: CYANOCOBALAMIN (B-12) 500 MCG TABLET PO SCH (09:01)
[2021-09-17] MEDS: ASCORBIC ACID 500 MG TAB PO SCH ×2 (09:01→18:04)
[2021-09-17] MEDS: ESCITALOPRAM OXALATE 10 MG TAB PO SCH (09:02)
[2021-09-17] MEDS: LOSARTAN POTASSIUM 50 MG TAB PO SCH (09:03)
[2021-09-17] MEDS: CHOLECALCIFEROL 5,000 UNITS 125 MCG TAB PO SCH (09:03)
[2021-09-17] MEDS: CEROVITE ADV FORMULA TAB PO SCH (09:03)
[2021-09-17] MEDS: CHLORTHALIDONE 25 MG TAB PO SCH (09:03)
[2021-09-17] MEDS: ASPIRIN 81 MG ECTAB PO SCH ×2 (09:04→21:35)
[2021-09-17] MEDS: FLUTICASONE PROPIONATE NA SPR 16 GM BTL NAE PRN ×2 (09:04→21:42)
[2021-09-17] MEDS: DOCUSATE SODIUM 100 MG CAP PO SCH ×2 (09:04→21:34)
[2021-09-17] MEDS: prednisoLONE acetate 1% OP SUSP 5 ML BTL OP SCH (09:05)
[2021-09-17] MEDS: KETOROLAC 0.5% OP SOLN 5 ML BTL OP SCH (09:05)
[2021-09-17] MEDS: INSULIN ASPART PER UNIT SC SCH ×4 (09:13→21:34)
[2021-09-17] MEDS: MAGNESIUM HYDROXIDE SUSP 30 ML UDC PO PRN (09:14)
[2021-09-17] MEDS: TAPENTADOL HCL ER 50 MG TABCR PO SCH ×2 (09:14→21:31)
[2021-09-17] MEDS ORDERED: INSULIN GLARGINE SOLOSTAR 100 UNITS/ML 3 ML PEN SQ ONE (12:30)
--- NOTE | 2021-09-17 13:17 | Pharmacy Report ---
Pharmacy Glycemic Short Note 2 - Date of Service September 17, 2021 - Glycemic Short BSG Results (Last 24 hours): 09/16/21 09/16/21 09/17/21 16:53 20:52 08:20 POC Glucose 85 216 H 211 H 09/17/21 12:15 POC Glucose 240 H OUTPATIENT ANTIDIABETIC REGIMEN: * Fiasp aspart insulin total 25 units daily * Lantus 13 units HS HbA1c: 7.3% (08/19/21) ASSESSMENT: 09/17/21 * Patient's BSGs remain poorly controlled, as patient is refusing increased doses of basal insulin * Will adjust Novolog CF to match patient's home dose to encourage him to take it * Awaiting placement 09/15/21 * Patient has good outpatient glycemic control, he attributes current BSGs to anxiety/stress * Patient refused basal insulin last evening and again this morning * BSGs elevated today undoubtedly related to lack of basal insulin on board (did not take day prior to surgery either) * Discussed with patient, he will accept home dose of basal insulin today, but only if it is dosed at HS * Suspect that BSGs will improve once basal insulin is on board 09/14/21 * 86 y/o M admitted for right total knee arthroplasty. Patient with history of Type 2 diabetes managed at home on basal and bolus insulin. * Will continue basal and bolus insulin while admitted. * Lantus at HS ordered with 20% reduction from home dose. Re-assess tomorrow. * Novolog ordered based on wt and stress between 2 and 3. * Patient did not take his HS Lantus dose last night which explains BSGs above 200 mg/dl at AM and pre-lunch checks today. PLAN FOR INPATIENT GLYCEMIC CONTROL: * Basal insulin * Lantus 13-15 units SQ HS (see EHR for details) * Bolus insulin * NovoLog per scale ACHS or Q6hrs while NPO * Goal Range: Low 110 mg/dL - High 140 mg/dL * Correction Factor: 30 mg/dL/unit * Nutritional / Prandial insulin per carb ratio of 1 unit per 5 grams CHO consumed
[2021-09-17] MEDS: SENNA 8.6 MG TAB PO SCH (21:32)
[2021-09-17] MEDS: INSULIN GLARGINE SOLOSTAR 100 UNITS/ML 3 ML PEN SQ SCH (21:33)
[2021-09-18] MEDS: oxyCODONE HCL IR 5 MG TAB (IMMEDIATE RELEASE) PO PRN ×2 (00:43→18:02)
[2021-09-18] MEDS: ACETAMINOPHEN 500 MG TAB PO SCH ×3 (05:23→21:25)
[2021-09-18] MEDS: ASCORBIC ACID 500 MG TAB PO SCH ×2 (08:34→16:22)
[2021-09-18] MEDS: CYANOCOBALAMIN (B-12) 500 MCG TABLET PO SCH (08:35)
[2021-09-18] MEDS: CHLORTHALIDONE 25 MG TAB PO SCH (08:35)
[2021-09-18] MEDS: ASPIRIN 81 MG ECTAB PO SCH ×2 (08:36→20:36)
[2021-09-18] MEDS: CHOLECALCIFEROL 5,000 UNITS 125 MCG TAB PO SCH (08:36)
[2021-09-18] MEDS: DOCUSATE SODIUM 100 MG CAP PO SCH ×2 (08:37→20:37)
[2021-09-18] MEDS: LOSARTAN POTASSIUM 50 MG TAB PO SCH (08:37)
[2021-09-18] MEDS: CEROVITE ADV FORMULA TAB PO SCH (08:38)
[2021-09-18] MEDS: ESCITALOPRAM OXALATE 10 MG TAB PO SCH (08:38)
[2021-09-18] MEDS: prednisoLONE acetate 1% OP SUSP 5 ML BTL OP SCH (08:39)
[2021-09-18] MEDS: KETOROLAC 0.5% OP SOLN 5 ML BTL OP SCH (08:39)
[2021-09-18] MEDS: TAPENTADOL HCL ER 50 MG TABCR PO SCH ×2 (08:47→20:40)
[2021-09-18] MEDS: INSULIN ASPART PER UNIT SC SCH ×4 (08:53→20:47)
--- NOTE | 2021-09-18 09:43 | Pharmacy Report ---
Pharmacy Glycemic Sign Off Nt - Date of Service September 18, 2021 - Assessment & Plan ASSESSMENT: * Patient will not take basal insulin outside of HS. Currently on home dose. * Patient also does not want a correction facot other than what he uses at home * BSG's have been OK x24 hours, ranging 130-141 mg/dL, except for a 240 mg/dL at lunch yesterday * Discussed with Dr. Rogers - CAROLINE for pharmacy to sign off glycemic management PLAN FOR INPATIENT GLYCEMIC CONTROL: No changes needed to current regimen. * Continue basal insulin with Lantus 13-15 units SQ HS * Continue NovoLog per scale ACHS/Q6hrs while NPO * Goal range = 110 140 mg/dl * CF = 30 mg/dl/unit * CR = 1 unit for ever 5 g CHO consumed * Pharmacy is signing off of glycemic consult and will no longer be making adjustments to inpatient regimen. Please feel free to re-consult if needed. Thank you.
--- NOTE | 2021-09-18 10:00 | Progress Notes ---
DATE OF SERVICE: 09/18/2021. SUBJECTIVE: An 86-year-old gentleman now postop day 4 from right total knee replacement. He is doin g pretty well. Making some gradual progress. A little bit more difficult than he thought. No chest pain or shortness of breath. Not feeling dizzy or lightheaded. OBJECTIVE: VITAL SIGNS: Temperature 36.7. Vital signs are stable. PHYSICAL EXAMINATION: GENERAL: Shows a pleasant, elderly male. He is sitting up in his bedside chair, looks comfortable. EXTREMITIES: Examination of the right knee reveals some very mild swelling. He can dorsiflex and pl antarflex his foot appropriately. Cannot quite do a straight leg raise. Small amount of drainage in the front of his dressing. ASSESSMENT: An 86-year-old gentleman postoperative day 4 from right knee replacement, doing reasonab ly well. We are just waiting for placement. Pain is controlled. He is neurologically intact. PLAN: 1. DVT prophylaxis including thigh-high TEDs, SCDs, and aspirin twice a day. 2. PT, OT, weightbear as tolerated. Right total knee protocol. 3. Pain control, doing okay with current pain regimen. 4. Disposition: We are just waiting for placement. His daughter has come from out of town and may take him home today if he does okay in therapy. We will see how therapy goes on. Job ID: [id number]
[2021-09-18] MEDS: SENNA 8.6 MG TAB PO SCH (20:36)
[2021-09-18] MEDS: INSULIN GLARGINE SOLOSTAR 100 UNITS/ML 3 ML PEN SQ SCH (20:47)
[2021-09-19] MEDS: oxyCODONE HCL IR 5 MG TAB (IMMEDIATE RELEASE) PO PRN ×3 (00:13→18:19)
[2021-09-19] MEDS: ACETAMINOPHEN 500 MG TAB PO SCH ×3 (05:43→21:00)
[2021-09-19] MEDS: INSULIN ASPART PER UNIT SC SCH ×4 (10:03→22:06)
[2021-09-19] MEDS: ESCITALOPRAM OXALATE 10 MG TAB PO SCH (10:12)
[2021-09-19] MEDS: CHOLECALCIFEROL 5,000 UNITS 125 MCG TAB PO SCH (10:12)
[2021-09-19] MEDS: CHLORTHALIDONE 25 MG TAB PO SCH (10:13)
[2021-09-19] MEDS: CEROVITE ADV FORMULA TAB PO SCH (10:13)
[2021-09-19] MEDS: ASPIRIN 81 MG ECTAB PO SCH ×2 (10:14→20:56)
[2021-09-19] MEDS: ASCORBIC ACID 500 MG TAB PO SCH ×2 (10:14→17:48)
[2021-09-19] MEDS: LOSARTAN POTASSIUM 50 MG TAB PO SCH (10:15)
[2021-09-19] MEDS: DOCUSATE SODIUM 100 MG CAP PO SCH ×2 (10:15→20:58)
[2021-09-19] MEDS: CYANOCOBALAMIN (B-12) 500 MCG TABLET PO SCH (10:16)
[2021-09-19] MEDS: KETOROLAC 0.5% OP SOLN 5 ML BTL OP SCH (10:17)
[2021-09-19] MEDS: TAPENTADOL HCL ER 50 MG TABCR PO SCH ×2 (10:34→20:55)
--- NOTE | 2021-09-19 11:03 | Progress Notes ---
DATE OF SERVICE: 09/19/2021. SUBJECTIVE: An 86-year-old gentleman, now 5 days out from a right knee replacement. We have just be en waiting for placement for the most part. He is doing pretty well. Pain is controlled. No chest pain or shortness of breath. Not feeling dizzy or lightheaded. Just a little bit confused this morn ing as he says he is not quite awake yet. OBJECTIVE: VITAL SIGNS: Temperature 36.6. Vital signs are stable. PHYSICAL EXAMINATION: GENERAL: Shows a pleasant middle-aged male. He is just getting up and seems just slightly confused. EXTREMITIES: Examination of the right leg reveals the dressing to be clean, dry and intact. He is n eurologically intact. ASSESSMENT: An 86-year-old gentleman postoperative day 5 from a right knee replacement, mostly just waiting for placement. 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 No signs of problems. PLAN: 1. DVT prophylaxis includes thigh-high TEDs, SCDs, and aspirin twice a day. 2. PT, OT, weightbear as tolerated. Right total knee protocol. 3. Pain control, doing okay with current pain regimen. We will need to be careful with narcotics to avoid confusion. 4. Disposition: Just waiting for discharge. He is unclear of what he wants to do today whether to go home with his daughter or wait and go to [facility] later next week. We will see how things go in [facility] today. Job ID: [id number]
[2021-09-19] MEDS: SENNA 8.6 MG TAB PO SCH (20:58)
[2021-09-19] MEDS: INSULIN GLARGINE SOLOSTAR 100 UNITS/ML 3 ML PEN SQ SCH (21:00)
[2021-09-20] MEDS: oxyCODONE HCL IR 5 MG TAB (IMMEDIATE RELEASE) PO PRN ×2 (02:21→09:04)
[2021-09-20] MEDS: ACETAMINOPHEN 500 MG TAB PO SCH ×3 (06:06→21:57)
--- NOTE | 2021-09-20 08:08 | Orthopedic Progress Note ---
Date of Service September 20, 2021 Assessment & Plan (1) Status post total right knee replacement: He is struggling a little bit with his right knee. He understands the pain and swelling is to be expected, it was just a little bit more than he was initially thinking. He does live alone. He is on aspirin for DVT prophylaxis. He would like to be discharged to [facility]. He is orthopedically stable for discharge when medically ready. However, he will likely remain in the hospital throughout the holiday weekend. Ezio Thomas was seen and examined at bedside this morning. Overall he still struggling a little bit with his knee. He feels like he has a lot of swelling. He has a lot of pain. He has been having difficult time with physical therapy. He does not feel safe returning home. He has no other complaints. Review of Systems All systems reviewed & are unremarkable except as noted in HPI & below. Physical Exam On physical examination of the right knee, the dressing is clean and dry. His leg is out full extension. He has active dorsiflexion plantarflexion of the right ankle. Results & Data Results & Data Laboratory Results . Diagnostic Findings . PG Care Time/CCT Total # of Minutes Spent Total Time Spent with Patient: Total time spent is greater than 50% in coordination of care (as documented) at patient's floor/unit and/or counseling patient: Coding Level of Care Code 78438 Post Operative Follow-Up Diagnoses Status post total right knee replacement Z96.651
[2021-09-20] MEDS: DOCUSATE SODIUM 100 MG CAP PO SCH ×2 (09:04→20:15)
[2021-09-20] MEDS: TAPENTADOL HCL ER 50 MG TABCR PO SCH ×2 (09:05→20:16)
[2021-09-20] MEDS: INSULIN ASPART PER UNIT SC SCH ×4 (09:05→21:56)
[2021-09-20] MEDS: FLUTICASONE PROPIONATE NA SPR 16 GM BTL NAE PRN (09:06)
[2021-09-20] MEDS: CEROVITE ADV FORMULA TAB PO SCH (09:07)
[2021-09-20] MEDS: KETOROLAC 0.5% OP SOLN 5 ML BTL OP SCH (09:07)
[2021-09-20] MEDS: ESCITALOPRAM OXALATE 10 MG TAB PO SCH (09:07)
[2021-09-20] MEDS: CHOLECALCIFEROL 5,000 UNITS 125 MCG TAB PO SCH (09:07)
[2021-09-20] MEDS: LOSARTAN POTASSIUM 50 MG TAB PO SCH (09:07)
[2021-09-20] MEDS: CHLORTHALIDONE 25 MG TAB PO SCH (09:08)
[2021-09-20] MEDS: ASPIRIN 81 MG ECTAB PO SCH ×2 (09:08→20:15)
[2021-09-20] MEDS: CYANOCOBALAMIN (B-12) 500 MCG TABLET PO SCH (09:08)
[2021-09-20] MEDS: prednisoLONE acetate 1% OP SUSP 5 ML BTL OP SCH (09:12)
[2021-09-20] MEDS: ASCORBIC ACID 500 MG TAB PO SCH (17:31)
[2021-09-20] MEDS: SENNA 8.6 MG TAB PO SCH (20:16)
[2021-09-20] MEDS: INSULIN GLARGINE SOLOSTAR 100 UNITS/ML 3 ML PEN SQ SCH (21:56)
[2021-09-21] MEDS: ACETAMINOPHEN 500 MG TAB PO SCH ×3 (06:38→21:53)
--- NOTE | 2021-09-21 07:17 | Orthopedic Progress Note ---
Date of Service September 21, 2021 Assessment & Plan (1) Status post total right knee replacement: Overall he is doing fairly well, he is not having much pain in the right knee. He will be seen by physical therapy today for ambulation and range of motion exercises. He is on aspirin for DVT prophylaxis. We are currently awaiting placement in a rehab facility. Ezio Thomas was seen and examined at bedside this morning. He is still having some pain and cramping of the right knee. He participated well with physical therapy yesterday. He has been up and ambulating twice. He has no new complaints. . Review of Systems All systems reviewed & are unremarkable except as noted in HPI & below. Physical Exam On physical examination of the right knee, the dressing is clean and dry. His leg is out in full extension. He has active dorsiflexion plantarflexion of the right ankle. Results & Data Results & Data Laboratory Results . Diagnostic Findings . PG Care Time/CCT Total # of Minutes Spent Total Time Spent with Patient: Total time spent is greater than 50% in coordination of care (as documented) at patient's floor/unit and/or counseling patient: Coding Level of Care Code 50496 Post Operative Follow-Up Diagnoses Status post total right knee replacement Z96.651
[2021-09-21] MEDS: oxyCODONE HCL IR 5 MG TAB (IMMEDIATE RELEASE) PO PRN ×3 (07:31→20:32)
[2021-09-21] MEDS: ASCORBIC ACID 500 MG TAB PO SCH ×2 (08:32→17:30)
[2021-09-21] MEDS: CHOLECALCIFEROL 5,000 UNITS 125 MCG TAB PO SCH (08:33)
[2021-09-21] MEDS: CYANOCOBALAMIN (B-12) 500 MCG TABLET PO SCH (08:33)
[2021-09-21] MEDS: ASPIRIN 81 MG ECTAB PO SCH ×2 (08:33→20:28)
[2021-09-21] MEDS: CHLORTHALIDONE 25 MG TAB PO SCH (08:33)
[2021-09-21] MEDS: ESCITALOPRAM OXALATE 10 MG TAB PO SCH (08:34)
[2021-09-21] MEDS: CEROVITE ADV FORMULA TAB PO SCH (08:34)
[2021-09-21] MEDS: DOCUSATE SODIUM 100 MG CAP PO SCH ×2 (08:34→20:27)
[2021-09-21] MEDS: LOSARTAN POTASSIUM 50 MG TAB PO SCH (08:35)
[2021-09-21] MEDS: prednisoLONE acetate 1% OP SUSP 5 ML BTL OP SCH (08:36)
[2021-09-21] MEDS: KETOROLAC 0.5% OP SOLN 5 ML BTL OP SCH (08:36)
[2021-09-21] MEDS: FLUTICASONE PROPIONATE NA SPR 16 GM BTL NAE PRN (08:39)
[2021-09-21] MEDS: INSULIN ASPART PER UNIT SC SCH ×4 (08:43→20:26)
[2021-09-21] MEDS: TAPENTADOL HCL ER 50 MG TABCR PO SCH ×2 (08:43→20:27)
[2021-09-21] MEDS: AMINO ACID SYNERGY SCH ×2 (14:12→18:47)
[2021-09-21] MEDS: INSULIN GLARGINE SOLOSTAR 100 UNITS/ML 3 ML PEN SQ SCH (20:25)
[2021-09-21] MEDS: SENNA 8.6 MG TAB PO SCH (20:28)
[2021-09-22] MEDS: oxyCODONE HCL IR 5 MG TAB (IMMEDIATE RELEASE) PO PRN (04:07)
[2021-09-22] MEDS: ACETAMINOPHEN 500 MG TAB PO SCH ×3 (05:59→20:35)
--- NOTE | 2021-09-22 06:30 | Orthopedic Progress Note ---
Date of Service September 22, 2021 Assessment & Plan (1) Status post total right knee replacement: Overall he continues to improve. He still has weakness in the leg and does not feel safe returning home alone. We are awaiting discharge to a [facility] facility. He is on aspirin for DVT prophylaxis. He will be seen by physical therapy again today for ambulation and range of motion exercises. He can be discharged to rehab today if a bed becomes available. He will follow-up with orthopedics in 2 weeks. Ezio Thomas was seen in his room today. He was just walking to the bathroom when I entered the room. He participated well yesterday with physical therapy walking 75 feet twice. He still has some weakness in the leg. Overall he is improving. Review of Systems All systems reviewed & are unremarkable except as noted in HPI & below. Physical Exam On physical examination, the dressing over his knee is clean and dry. He is standing with a walker and able to put full weight on the right knee. Results & Data Results & Data Laboratory Results . Diagnostic Findings . PG Care Time/CCT Total # of Minutes Spent Total Time Spent with Patient: Total time spent is greater than 50% in coordination of care (as documented) at patient's floor/unit and/or counseling patient: Coding Level of Care Code 02232 Post Operative Follow-Up Diagnoses Status post total right knee replacement Z96.651
[2021-09-22] MEDS: LOSARTAN POTASSIUM 50 MG TAB PO SCH (08:44)
[2021-09-22] MEDS: ESCITALOPRAM OXALATE 10 MG TAB PO SCH (08:45)
[2021-09-22] MEDS: CEROVITE ADV FORMULA TAB PO SCH (08:45)
[2021-09-22] MEDS: CHLORTHALIDONE 25 MG TAB PO SCH (08:46)
[2021-09-22] MEDS: CYANOCOBALAMIN (B-12) 500 MCG TABLET PO SCH (08:46)
[2021-09-22] MEDS: ASPIRIN 81 MG ECTAB PO SCH ×2 (08:47→20:35)
[2021-09-22] MEDS: ASCORBIC ACID 500 MG TAB PO SCH ×2 (08:47→18:13)
[2021-09-22] MEDS: CHOLECALCIFEROL 5,000 UNITS 125 MCG TAB PO SCH (08:48)
[2021-09-22] MEDS: DOCUSATE SODIUM 100 MG CAP PO SCH ×2 (08:48→20:35)
[2021-09-22] MEDS: KETOROLAC 0.5% OP SOLN 5 ML BTL OP SCH (08:49)
[2021-09-22] MEDS: AMINO ACID SYNERGY SCH ×3 (08:50→18:13)
[2021-09-22] MEDS: MAGNESIUM HYDROXIDE SUSP 30 ML UDC PO PRN ×2 (08:50→15:08)
[2021-09-22] MEDS: TAPENTADOL HCL ER 50 MG TABCR PO SCH ×2 (08:52→20:35)
[2021-09-22] MEDS: FLUTICASONE PROPIONATE NA SPR 16 GM BTL NAE PRN (08:53)
[2021-09-22] MEDS: prednisoLONE acetate 1% OP SUSP 5 ML BTL OP SCH (08:54)
[2021-09-22] MEDS: INSULIN ASPART PER UNIT SC SCH ×4 (08:55→22:11)
[2021-09-22] MEDS: SENNA 8.6 MG TAB PO SCH (20:35)
[2021-09-22] MEDS: INSULIN GLARGINE SOLOSTAR 100 UNITS/ML 3 ML PEN SQ SCH (22:11)
[2021-09-23] MEDS: ACETAMINOPHEN 500 MG TAB PO SCH (04:22)
--- NOTE | 2021-09-23 06:26 | Orthopedic Progress Note ---
Date of Service September 23, 2021 Assessment & Plan (1) Status post total right knee replacement: Overall he continues to do well. Is not having too much pain in the knee. He will be seen by physical therapy today for ambulation and range of motion exercises. He is on aspirin for DVT prophylaxis. He can be discharged to a rehab facility later today. He will follow-up with orthopedics in 2 weeks. Ezio Thomas was seen and examined at bedside this morning. Overall is doing fairly well. He was having some pain in his knee last night but he says it is getting easier to ambulate. He has no new complaints. Review of Systems All systems reviewed & are unremarkable except as noted in HPI & below. Physical Exam On physical examination of his knee, the dressing is clean and dry. He is neurovascular intact.. Results & Data Results & Data Laboratory Results . Diagnostic Findings . PG Care Time/CCT Total # of Minutes Spent Total Time Spent with Patient: Total time spent is greater than 50% in coordination of care (as documented) at patient's floor/unit and/or counseling patient: Coding Level of Care Code 93170 Post Operative Follow-Up Diagnoses Status post total right knee replacement Z96.651
[2021-09-23] MEDS: CEROVITE ADV FORMULA TAB PO SCH (08:41)
[2021-09-23] MEDS: CHOLECALCIFEROL 5,000 UNITS 125 MCG TAB PO SCH (08:41)
[2021-09-23] MEDS: LOSARTAN POTASSIUM 50 MG TAB PO SCH (08:42)
[2021-09-23] MEDS: DOCUSATE SODIUM 100 MG CAP PO SCH (08:42)
[2021-09-23] MEDS: CYANOCOBALAMIN (B-12) 500 MCG TABLET PO SCH (08:42)
[2021-09-23] MEDS: KETOROLAC 0.5% OP SOLN 5 ML BTL OP SCH (08:42)
[2021-09-23] MEDS: ESCITALOPRAM OXALATE 10 MG TAB PO SCH (08:42)
[2021-09-23] MEDS: ASCORBIC ACID 500 MG TAB PO SCH (08:43)
[2021-09-23] MEDS: CHLORTHALIDONE 25 MG TAB PO SCH (08:43)
[2021-09-23] MEDS: AMINO ACID SYNERGY SCH (08:44)
[2021-09-23] MEDS: INSULIN ASPART PER UNIT SC SCH ×2 (08:52→12:58)
[2021-09-23] MEDS: TAPENTADOL HCL ER 50 MG TABCR PO SCH (08:54)
[2021-09-23] MEDS: ASPIRIN 81 MG ECTAB PO SCH (09:00)
--- NOTE | 2021-09-25 08:35 | Discharge Summary ---
Date of Service September 25, 2021 Discharge Data Procedures Performed Operation Date: 09/14/21 07:00 Actual Procedures p Right Total Knee Arthroplasty(Right) - Ramone Rogers MD Hospital Course (1) Status post total right knee replacement: This is a 86 year old patient admitted on 09/14/21 and underwent total knee arthroplasty. He tolerated the procedure well and there were no complications. Transferred to the PACU post op and later to the orthopedic floor for further care. He was given ancef for antibiotic prophylaxis. He was also given BASILIO stockings, SCDs, and aspirin for DVT prophylaxis. Hemoglobin, hematocrit, and vital signs were monitored during his hospital stay and remained stable. Did not require any blood transfusions. There were no complications during his hospital stay. He was awaiting placement at a nursing home/rehab facility. By post op day #9 the patient was tolerating a diabetic diet, pain was reasonably controlled with oral pain medicine, and he was participating in physical therapy. On post op day #9 the patient was discharged home and set up with home health care. He was given printed discharge instructions including prescriptions for extra strength tylenol, aspirin, and oxycodone. Continue physical therapy, weight bearing as tolerated. Continue BASILIO stockings. Follow up approximately 2 weeks post op or sooner if there are problems or concerns. Coding Level of Care Code None Diagnoses Status post total right knee replacement Z96.651
== END 2021-09-23 14:07 ==
LOC: ASU 05:29 → PACUINP 05:29 → 3W 12:21
DX: Z88.8 Allergy status to other drugs, medicaments and biological substances; Z85.46 Personal history of malignant neoplasm of prostate; Z88.3 Allergy status to other anti-infective agents; Z91.041 Radiographic dye allergy status; M17.11 Unilateral primary osteoarthritis, right knee; Z79.4 Long term (current) use of insulin

== ENCOUNTER 2024-06-19 08:42 | Observation (INO) ==
--- NOTE | 2024-03-27 14:49 | PAT Medication Instructions ---
Medication Instructions Date of Service March 27, 2024 Home Medications Medication Instructions Recorded acetaminophen 500 mg capsule 1,000 mg (2 x 500 mg) PO Q8H PRN 09/23/21 pain #180 caps blood glucose control, normal #1 ea 02/21/23 (OneTouch Verio Mid Control solution) amoxicillin 500 mg tablet 2,000 mg (4 x 500 mg) PO ONCE 04/22/23 prior to dental procedure #4 tabs insulin aspart (niacinamide) 24 unit subcut DAILY #30 mL 08/02/23 (U-100) 100 unit/mL subcutaneous solution (Fiasp U-100 Insulin) needle (disp) 18 G 18 gauge x 1" #50 ea 09/20/23 (BD Regular [place]) blood sugar diagnostic (OneTouch #100 ea 10/18/23 Verio test strips) safety needles 25 gauge x 5/8" (BD #50 ea 12/21/23 SafetyGlide Needle) syringe (disposable) 3 mL (BD #100 ea 12/21/23 Luer-Yee Syringe) syringe with needle 3 mL 25 x 5/8" #12 ea 01/19/24 (BD SafetyGlide Syringe) BD Veo Insulin Syr (half unit) 0.3 #600 ea 02/20/24 mL 31 gauge x 15/64" (insulin syr/ndl U100 half edilma) diclofenac sodium 1 % topical gel 4 g topical QID PRN Pain #100 grams 03/08/24 testosterone cypionate 100 mg/mL 60 mg (0.6 mL) subcut Q7D #10 mL 03/16/24 intramuscular oil (Depo-Testosterone) Medication List: ketorolac 0.5 % eye drops 1 drops ophthalmic (eye) QAM prednisolone acetate 1 % eye drops,suspension 1 drops ophthalmic (eye) Q2D uodmrxra-pzl-nebmui 5 mg-zeaxanth 1 mg-bilberry 7.5 mg-herbal capsule (Macular Health Formula) 1 cap PO QAM fluticasone propionate 50 mcg/actuation nasal spray,suspension 1 spray intranasal BID acetaminophen 500 mg capsule 1,000 mg (2 x 500 mg) PO Q8H PRN pain amoxicillin 500 mg tablet 2,000 mg (4 x 500 mg) PO ONCE prior to dental procedure chlorthalidone 50 mg tablet 25 mg PO QAM insulin aspart (niacinamide) (U-100) 100 unit/mL subcutaneous solution (Fiasp U- 100 Insulin) per sliding scale cyanocobalamin (vitamin B-12) 1,000 mcg capsule 2,000 mcg PO QAM insulin glargine 100 unit/mL subcutaneous solution (Lantus U-100 Insulin) 13 unit subcut HS diclofenac sodium 1 % topical gel 4 g topical QID PRN Pain testosterone cypionate 100 mg/mL intramuscular oil (Depo-Testosterone) 60 mg (0.6 mL) subcut Q7D biotin 5,000 mcg disintegrating tablet 5,000 mcg PO QAM calcitriol 0.25 mcg capsule 0.25 mcg PO QAM cholecalciferol (vitamin D3) 125 mcg (5,000 unit) tablet (Vitamin D3) 125 mcg PO QAM escitalopram oxalate 20 mg tablet 20 mg PO QAM [id number]-jqjgapvx-urublby 36,000-114,000-180,000 unit capsule,delay rel (Creon) 2 cap PO UD magnesium 200 mg tablet 400 mg PO QAM olmesartan 20 mg tablet 20 mg PO QAM potassium chloride 20 mEq tablet,extended release 20 meq PO QAM tamoxifen 10 mg tablet 10 mg PO QAM MEDICATION INSTRUCTIONS: Continue as directed ketorolac 0.5 % eye drops 1 drops ophthalmic (eye) QAM prednisolone acetate 1 % eye drops,suspension 1 drops ophthalmic (eye) Q2D fluticasone propionate 50 mcg/actuation nasal spray,suspension 1 spray intr anasal BID diclofenac sodium 1 % topical gel 4 g topical QID PRN Pain (do not apply after bathing prior to surgery) amoxicillin 500 mg tablet 2,000 mg (4 x 500 mg) PO ONCE prior to dental procedure ASK your surgeon for instructions testosterone cypionate 100 mg/mL intramuscular oil (Depo-Testosterone) 60 mg (0.6 mL) subcut Q7D tamoxifen 10 mg tablet 10 mg PO QAM STOP taking 2 weeks before surgery ukpyoqeo-lgs-cdozed 5 mg-zeaxanth 1 mg-bilberry 7.5 mg-herbal capsule ([employer] Health Formula) 1 cap PO QAM biotin 5,000 mcg disintegrating tablet 5,000 mcg PO QAM DO NOT take the morning of surgery calcitriol 0.25 mcg capsule 0.25 mcg PO QAM cyanocobalamin (vitamin B-12) 1,000 mcg capsule 2,000 mcg PO QAM chlorthalidone 50 mg tablet 25 mg PO QAM cholecalciferol (vitamin D3) 125 mcg (5,000 unit) tablet (Vitamin D3) 125 mcg PO QAM magnesium 200 mg tablet 400 mg PO QAM olmesartan 20 mg tablet 20 mg PO QAM potassium chloride 20 mEq tablet,extended release 20 meq PO QAM insulin aspart (niacinamide) (U-100) 100 unit/mL subcutaneous solution (Fiasp U- 100 Insulin) per sliding scale yikirt-adhizwnn-uszsyko 36,000-114,000-180,000 unit capsule,delay rel (Creon) 2 cap PO UD Take morning of surgery With a small sip of water, OTHERWISE NOTHING TO EAT OR DRINK AFTER MIDNIGHT: acetaminophen 500 mg capsule 1,000 mg (2 x 500 mg) PO Q8H PRN pain escitalopram oxalate 20 mg tablet 20 mg PO QAM Take evening before surgery acetaminophen 500 mg capsule 1,000 mg (2 x 500 mg) PO Q8H PRN pain insulin aspart (niacinamide) (U-100) 100 unit/mL subcutaneous solution (Fiasp U- 100 Insulin) per sliding scale insulin glargine 100 unit/mL subcutaneous solution (Lantus U-100 Insulin) 13 unit subcut HS Other Notes If you have any questions please call us at [phone] or [phone] or [phone] or [phone]
--- NOTE | 2024-04-03 13:03 | Anesthesiology Consultation ---
Date of Service April 03, 2024 Assessment & Plan (1) Encounter for pre-operative examination: - Check BSG DOS - Infectious disease screening: Per assessment on 04/03/24- No known recent infectious disease contacts or current infectious disease symptoms. - Outpatient joint assessment: Pt currently scheduled for inpatient pathway. If surgeon requests review for outpatient joint pathway, patient is not recommended candidate for outpatient joint program from anesthesia standpoint based on available information. - Surgical/anesthesia hx: * Right TKA (09/14/21): SAB at L3/4 (1 attempt) + regional at [facility] * B/L upper blepharoplasty with temporal brow lift (05/06/23): LMA#5, atraumatic at [facility] - PCP visit (04/02/24): Stable diabetes. Pancreatic exocrine insufficiency- GI/endo monitoring. Abnormal preop EKG- cardiac referral ordered ("EKG for preop purposes April 03, 2024 noted sinus bradycardia with left axis deviation and left bundle branch block possibility for inferior infarct"). Chronic, intermittent dry cough possibly r/t losartan- patient declined adjust ments/changes. Anemia/thrombocytopenia- referred to hematology (patient to call for appt). 2007 lung biopsy consistent with interstitial fibrosis. Multifatorial chronic tiredness and fatigue. Thyroid nodules being monitored. "medically stable to proceed for left knee surgical intervention/replacement but pending endocrinology review/hematology oncology follow-up/Cardiology for preop purposes " - GI visit (04/10/24): "Exocrine pancreatic insufficiency.. Will obtain testing as recommended by [facility] including cross sectional imaging of the pancreas as well as an elastase. Per the documentation, it does appear they are expecting follow-up with the patient after testing.. Continue Creon 2 caps before meals/snacks.. Further follow-up recommendations pending results of testing & [facility] input." > GI workload message 04/10/24, "I reviewed this patient's CT scan from [facility]. It appears he has findings of chronic pancreatitis, however the pancreatic duct is dilated concerning for pancreatolithiasis. This is an issue that our office does not manage and I would advise he either see [facility] for this abnormal CT result or see [facility] who also does biliary testing that we do not offer." - Cardiology visit (04/12/24): "..presumed ASCVD (based on age, risk factors, diminished pedal pulses), Frequent PVC's, Chronically Abnormal EKG (LBBB vs LVH with QRS widening), and Paroxysmal Ventricular Tachycardia who presents today for Preoperative Cardiac Evaluation. He is scheduled undergo Left TKA on 04/27/[address] Ramone Rogers. Patient remains active on a daily basis. He goes to the gym routinely where he does squats, lifts, rowing machine, and balance exercises in addition to calisthenics. He does not really have a cardio routine but he works out at a high pace.. He has not experienced any limiting cardiopulmonary symptoms with these activities. Patient has not experienced any angina pectoris, overt signs or symptoms of heart failure, nor has he had any symptoms suggestive of a sustained dysrhythmia. Patient does note occasional palpitations described as skipped beats -- historically these have corresponded with PVCs.. Based on his functional status without limiting cardiopulmonary symptoms I suspect that he is going to be a good surgical candidate, however based on his advanced age, diagnosis of diabetes mellitus and being limited in his aerobic activities -- I think it would be prudent to perform a Lexiscan Cardiolite to rule out any myocardial ischemia prior to surgery." - Endocrine Diabetes Ed/informatica developer visit (04/17/24): "This was to be a follow up prior to knee surgery however as you shared you have more tests that need to be done. Your blood sugars are relatively consistent since November. You shared that you are sleeping in more in the morning. If you do this you notice your blood sugars rise without food. YOu do have coffee and some people see an increase because of the caffeine. Please do not act upon this just wait until you eat and take care of it if a correction is needed. Occasionally you may miss your Creon. I wonder if you see blood sugars after meals hard to explain it may be a digestion issue with food and meal time insulin? You will see if there is a pattern as you continue to track and record your information. You take your hearing aids when you sleep. You can not hear the Dexcom or [place] alarms. You can feel the vibration. I suggest trying to place the reader under your pillow - in the case." - Hematology visit (04/19/24): "Borderline labs, may be related to his connective tissue disease and chronic inflammatory state. Or there may be low-level MDS. In any case I do not see that he warrants a bone marrow biopsy..At this point I recommend monitoring these labs regularly. He will return to clinic in 3 months.. Even if we find diagnosis of myelodysplastic syndrome he may not qualify for any kind of treatment given the low risk MDS at this point." - Thrombocytopenia: Updated labs 04/19/24 note stable thrombocytopenia at 77. Reviewed with Dr. Boo. Will check CBCD/T&S DOS. Ultimate anesthesia type determination based upon DOS labs. Surgeon's office made aware of plan (advised to contact us if surgeon has any further questions/guidance regarding thrombocytopenia from their perspective- no definitive plan for perioperative platelets at this time. Further decision making after DOS level recheck. OR/Miguel with blood bank aware. - Pending: LBBB + possible inferior infarct on preop EKG. PCP referred patient to cardiology. Per preop [facility] cardiac evaluation appt, preop stress test being arranged. Awaiting cardiology-ordered preop stress test ([facility] cardio, date 04/25). Patient otherwise acceptable risk for surgery. Chart Review Chart Review: Patient seen in Pre Admission Testing Teaching & Discussion Pre-Anesthesia Teaching/Discussion Notes: Instructed NPO after midnight before surgery,except medications with 15 cc of water. Medication instructions provided according to the PAT guidelines. History Surgery Operation Date: 04/27/24 10:40 Proposed Procedures p Left Total Knee Arthroplasty - Ramone Rogers MD Height/Weight Height: 5 ft 9 in Weight: 85.5 kg Allergies Allergy/AdvReac Type Severity Reaction Status Date / Time prednisone Allergy Intermediate hyperglycem Verified 04/12/24 14:10 ia pregabalin [From Lyrica] Allergy Unknown Unknown Verified 04/12/24 14:10 diphenhydramine AdvReac Intermediate hyperactive Verified 04/12/24 14:10 [From Benadryl Allergy] spironolactone AdvReac Intermediate gynecomasti Verified 04/12/24 14:10 a testosterone AdvReac Intermediate gynecomasti Verified 04/12/24 14:10 a beta blockers AdvReac Intermediate Depression Uncoded 04/12/24 14:10 Medications Home Medications Medication Instructions Recorded Confirmed Last Taken ketorolac 0.5 % eye drops 1 drops ophthalmic (eye) QAM 12/05/18 04/12/24 09/02/22 21:00 prednisolone acetate 1 % eye 1 drops ophthalmic (eye) Q2D 12/05/18 04/12/24 09/02/22 08:00 drops,suspension zvujpggp-gey-jnykrr 5 mg-zeaxanth 1 cap PO QAM 05/13/20 04/12/24 09/02/22 08:00 1 mg-bilberry 7.5 mg-herbal capsule ([employer] Formula) fluticasone propionate 50 1 spray intranasal BID 01/27/21 04/12/24 09/02/22 08:00 mcg/actuation nasal spray,suspension acetaminophen 500 mg capsule 1,000 mg (2 x 500 mg) PO Q8H PRN 09/23/21 04/12/24 09/01/22 pain #180 caps blood glucose control, normal #1 ea 02/21/23 04/12/24 Unknown (OneTouch Verio Mid Control solution) amoxicillin 500 mg tablet 2,000 mg (4 x 500 mg) PO ONCE 04/22/23 04/12/24 Unknown prior to dental procedure #4 tabs chlorthalidone 50 mg tablet 25 mg PO QAM 06/06/23 04/12/24 Unknown needle (disp) 18 G 18 gauge x 1" #50 ea 09/20/23 04/12/24 Unknown (BD Regular [place]vel [place]) blood sugar diagnostic (OneTouch #100 ea 10/18/23 04/12/24 Unknown Verio test strips) blood-glucose sensor (Dexcom G7 12/05/23 04/12/24 Unknown Sensor device) cyanocobalamin (vitamin B-12) 2,000 mcg PO QAM 12/05/23 04/12/24 Unknown 1,000 mcg capsule safety needles 25 gauge x 5/8" (BD #50 ea 12/21/23 04/12/24 Unknown SafetyGlide Needle) syringe (disposable) 3 mL (BD #100 ea 12/21/23 04/12/24 Unknown Luer-Yee Syringe) syringe with needle 3 mL 25 x 5/8" #12 ea 01/19/24 04/12/24 Unknown (BD SafetyGlide Syringe) BD Veo Insulin Syr (half unit) 0.3 #600 ea 02/20/24 04/12/24 Unknown mL 31 gauge x 15/64" (insulin syr/ndl U100 half edilma) diclofenac sodium 1 % topical gel 4 g topical QID PRN Pain #100 grams 03/08/24 04/12/24 Unknown testosterone cypionate 100 mg/mL 60 mg (0.6 mL) subcut Q7D #10 mL 03/16/24 04/12/24 Unknown intramuscular oil (Depo-Testosterone) biotin 5,000 mcg disintegrating 5,000 mcg PO QAM 03/27/24 04/12/24 Unknown tablet calcitriol 0.25 mcg capsule 0.25 mcg PO QAM 03/27/24 04/12/24 Unknown cholecalciferol (vitamin D3) 125 125 mcg PO QAM 03/27/24 04/12/24 Unknown mcg (5,000 unit) tablet (Vitamin D3) escitalopram oxalate 20 mg tablet 20 mg PO QAM 03/27/24 04/12/24 Unknown jvcgcu-axeqzcyw-fxjaqcd 2 cap PO UD 03/27/24 04/12/24 Unknown 36,000-114,000-180,000 unit capsule,delay rel (Creon) magnesium 200 mg tablet 400 mg PO QAM 03/27/24 04/12/24 Unknown potassium chloride 20 mEq 20 meq PO QAM 03/27/24 04/12/24 Unknown tablet,extended release tamoxifen 10 mg tablet 10 mg PO QAM 03/27/24 04/12/24 Unknown insulin glargine 100 unit/mL 13 unit (0.13 mL) subcut HS #20 mL 04/18/24 Unknown subcutaneous solution (Lantus U-100 Insulin) olmesartan 20 mg tablet 10 mg (1/2 x 20 mg) PO QAM #45 tabs 04/18/24 Unknown insulin aspart (niacinamide) See Rx Instructions subcut DAILY 04/20/24 Unknown (U-100) 100 unit/mL subcutaneous #30 mL solution (Fiasp U-100 Insulin) Past Medical History Medical History Anxiety Arthritis of knee, left Chronic fatigue Chronic kidney disease DM type 2 (diabetes mellitus, type 2) IDDM Follows with endo Edema RLE lymphedema/LLE mild edema Wears compression stockings constantly Exocrine pancreatic insufficiency Chronic diarrhea- Controlled with Creon Hearing deficit Bilateral hearing aids History of anemia History of depression History of obstructive sleep apnea No longer uses CPAP Was re-tested twice with sleep study- no longer has ALEISHA per patient History of pressure ulcer Hx of of lower back ulcer (2007)- did see wound clinic, ulcer healed Concerned with positioning/similar issues happening with upcoming surgical course History of prostate cancer 2002; s/p prostatectomy No chemo or XRT History of thrombocytopenia 07/2023- platelets 72, 12/30/23- platelets 84 Per [facility] [place]CP records- aware, unknown etiology, ? r/t autoimmune condition HTN (hypertension) Hypercholesterolemia Hx Interstitial lung disease Per lung biopsy in 2007 Loose body of left knee Macular degeneration "Minimal" Neuropathy Nontoxic multinodular goiter Osteoporosis Primary hypogonadism in male Raynaud's disease without gangrene Per records, patient unsure Spinal stenosis Undifferentiated connective tissue disease Followed with rheum Exercise / Class Metabolic Activity II 4-5 Yardwork/Stairs/Walk up hill Past Family History Family History Brother Cancer Mother Cancer Other Breast cancer No family history of adverse response to anesthesia Denies family history of Ovarian cancer Prostate cancer Myocardial infarction Colorectal cancer Past Surgical History Surgical History H/O umbilical hernia repair Ventral hernia repair (06/19/20): LMA#5 at [facility] History of cataract surgery L/R History of colonoscopy History of prostate biopsy History of prostatectomy 2002 History of thoracentesis Per remote records, patient unsure History of total right knee replacement Right TKA (09/14/21): SAB at L3/4 (1 attempt) + regional at [facility] Hx of blepharoplasty B/L upper blepharoplasty with temporal brow lift (05/06/23): LMA#5, atraumatic at [facility] Status post lung surgery "to straighten lung, it was sticking to the side of the lung cavity" (2012) Past Anesthesia History No Hx of Anesthesia Complications and No Family Hx of Anesthesia Complications History of PONV No Hx of PONV and No Hx of Motion Sickness Social History Smoking Status: Former smoker Do You Dip or Chew Tobacco: No Smoking End Date: Quit 60 years ago (for 2 years only) Hx Alcohol Use: Yes Alcohol type: wine alcohol intake frequency: 0-2 drinks per day Hx Substance Use: No substance use type: does not use Review of Systems Patient denies chest pain, shortness of breath, dyspnea on exertion, fever, chills, cough, wheezing, palpitations. Physical Exam Vital Signs BP 131/71 P 51 TEMP 97.5 SP02 95%RA RESP 16 Physical Mildly decreased cervical extension range of motion. Full TMJ range of motion. TMD >3.5 finger breaths Mallampati Score II Dentition: lower front missing, + several caps Lungs: clear throughout to auscultation Cardiac: regular rate and rhythm, no murmurs noted Spine: normal Carotid arteries: negative bruit Extremities: RLE calf edema (chronic)- wearing compression stocking Lab Results Anesthesia Preop Results Results Anesthesia Widget: WBC 4.37 K/ul (4.8-10.8) L 04/19/24 Hgb 12.2 g/dl (14.0-18.0) L 04/19/24 Hct 36.1 % (42.0-52.0) L 04/19/24 Plt 77 K/uL (130-400) L 04/19/24 Na 144 mmol/L (136-145) 04/19/24 K 3.3 mmol/L (3.5-5.1) L 04/19/24 Cl 106 mmol/L (98-107) 04/19/24 CO2 33 mmol/L (21-32) H 04/19/24 BUN 39 mg/dl (6-23) H 04/19/24 Creat 1.50 mg/dl (0.6-1.4) H 04/19/24 Glucose Level 137 mg/dl (70-99(Fasting)) H 04/19/24 PT 11.2 Seconds (9.0-12.0) 04/03/24 PTT 25 Seconds (21-31) 04/03/24 INR 1.0 (0.9-1.1) 04/03/24 HA1c 7.7 % (4.5-5.6) H 04/03/24 Blood Type A Positive 04/03/24 Antibody Screen NEGATIVE 04/03/24 Testing Laboratory Results *Creatinine reviewed/being monitored by PCP/HTN clinic* Electrocardiogram Date: 04/03/24 SB at 54bpm. LAD. LBBB. Possible inferior infarct, age undetermined. Chest X-Ray Date: 04/03/24 FINDINGS: The cardiac silhouette measures within normal limits. Calcification of the thoracic aorta. The hilar and mediastinal structures appear unremarkabl e. The lungs are clear. The osseous structures appear grossly intact. Degenerative changes of the thoracic spine. IMPRESSION: No evidence of acute cardiopulmonary disease, communicable disease or tuberculosis. No significant interval change. Stress Test Date: 06/17/20 Type: DSE Nondiagnostic dobutamine echocardiogram due to failure to achieve target heart rate. Frequent ventricular ectopy including brief runs of nonsustained VT in early recovery. Wall motion abnormalities were seen at peak infusion including the septum and inferior wall, unclear if this was related to ventricular ectopy or true ischemia. LV is normal in size and systolic function. Mild concentric LVH. Mild MR/TR. Cardiology addendum 06/08/20= "Based on the fact that patient did not have chest pain or ST deviations despite a HR in the 130's during DSE -- patient is an intermediate cardiac risk for his upcoming umbilical hernia repair."
--- NOTE | 2024-05-31 12:13 | PAT Medication Instructions ---
Medication Instructions Date of Service May 31, 2024 Home Medications Medication Instructions Recorded acetaminophen 500 mg capsule 1,000 mg (2 x 500 mg) PO Q8H PRN 09/23/21 pain #180 caps blood glucose control, normal #1 ea 02/21/23 (OneTouch Verio Mid Control solution) amoxicillin 500 mg tablet 2,000 mg (4 x 500 mg) PO ONCE 04/22/23 prior to dental procedure #4 tabs needle (disp) 18 G 18 gauge x 1" #50 ea 09/20/23 (BD Regular Bevel [place]) blood sugar diagnostic (OneTouch #100 ea 10/18/23 Verio test strips) safety needles 25 gauge x 5/8" (BD #50 ea 12/21/23 SafetyGlide Needle) syringe (disposable) 3 mL (BD #100 ea 12/21/23 Luer-Yee Syringe) syringe with needle 3 mL 25 x 5/8" #12 ea 01/19/24 (BD SafetyGlide Syringe) BD Veo Insulin Syr (half unit) 0.3 #600 ea 02/20/24 mL 31 gauge x 15/64" (insulin syr/ndl U100 half edilma) diclofenac sodium 1 % topical gel 4 g topical QID PRN Pain #100 grams 03/08/24 testosterone cypionate 100 mg/mL 60 mg (0.6 mL) subcut Q7D #10 mL 03/16/24 intramuscular oil (Depo-Testosterone) olmesartan 20 mg tablet 10 mg (1/2 x 20 mg) PO QAM #45 tabs 04/18/24 insulin aspart (niacinamide) See Rx Instructions subcut DAILY 04/20/24 (U-100) 100 unit/mL subcutaneous #30 mL solution (Fiasp U-100 Insulin) chlorthalidone 50 mg tablet 25 mg (1/2 x 50 mg) PO QAM #90 tabs 04/24/24 mwznyr-xeikcpdv-nghqfrh 2 cap PO UD #240 caps 04/24/24 36,000-114,000-180,000 unit capsule,delay rel (Creon) ketorolac 0.5 % eye drops 1 drops ophthalmic (eye) QAM prednisolone acetate 1 % eye drops,suspension 1 drops ophthalmic (eye) Q2D jfdvabqv-kxk-adtttc 5 mg-zeaxanth 1 mg-bilberry 7.5 mg-herbal capsule (Macular Health Formula) 1 cap PO QAM fluticasone propionate 50 mcg/actuation nasal spray,suspension 1 spray intranasal HS acetaminophen 500 mg capsule 1,000 mg (2 x 500 mg) PO Q8H PRN amoxicillin 500 mg tablet 2,000 mg (4 x 500 mg) PO ONCE cyanocobalamin (vitamin B-12) 1,000 mcg capsule 2,000 mcg PO QAM diclofenac sodium 1 % topical gel 4 g topical QID PRN testosterone cypionate 100 mg/mL intramuscular oil (Depo-Testosterone) 60 mg (0.6 mL) subcut Q7D biotin 5,000 mcg disintegrating tablet 5,000 mcg PO QAM calcitriol 0.25 mcg capsule 0.25 mcg PO QAM escitalopram oxalate 20 mg tablet 20 mg PO QAM magnesium 200 mg tablet 400 mg PO QAM potassium chloride 20 mEq tablet,extended release 40 meq PO QAM tamoxifen 10 mg tablet 10 mg PO QAM olmesartan 20 mg tablet 10 mg (1/2 x 20 mg) PO QAM insulin aspart (niacinamide) (U-100) 100 unit/mL subcutaneous solution (Fiasp U- 100 Insulin) See Rx Instructions subcut DAILY chlorthalidone 50 mg tablet 25 mg (1/2 x 50 mg) PO QAM awhxps-joegoaas-qmycigk 36,000-114,000-180,000 unit capsule,delay rel (Creon) 2 cap PO UD insulin glargine 100 unit/mL subcutaneous solution (Lantus U-100 Insulin) 13 unit subcut HS Continue as directed prednisolone acetate 1 % eye drops,suspension 1 drops ophthalmic (eye) Q2D amoxicillin 500 mg tablet 2,000 mg (4 x 500 mg) PO ONCE ASK your prescriber and surgeon testosterone cypionate 100 mg/mL intramuscular oil (Depo-Testosterone) 60 mg (0.6 mL) subcut Q7D tamoxifen 10 mg tablet 10 mg PO QAM STOP taking 2 weeks before surgery (or as soon as possible if surgery is within 2 weeks) rumoiiuk-yok-xymcgs 5 mg-zeaxanth 1 mg-bilberry 7.5 mg-herbal capsule (Macular Health Formula) 1 cap PO QAM STOP taking 24 hours before surgery diclofenac sodium 1 % topical gel 4 g topical QID PRN DO NOT take the morning of surgery cyanocobalamin (vitamin B-12) 1,000 mcg capsule 2,000 mcg PO QAM biotin 5,000 mcg disintegrating tablet 5,000 mcg PO QAM calcitriol 0.25 mcg capsule 0.25 mcg PO QAM magnesium 200 mg tablet 400 mg PO QAM potassium chloride 20 mEq tablet,extended release 40 meq PO QAM olmesartan 20 mg tablet 10 mg (1/2 x 20 mg) PO QAM insulin aspart (niacinamide) (U-100) 100 unit/mL subcutaneous solution (Fiasp U- 100 Insulin) See Rx Instructions subcut DAILY chlorthalidone 50 mg tablet 25 mg (1/2 x 50 mg) PO QAM lbxljj-qxbefioh-cioqeek 36,000-114,000-180,000 unit capsule,delay rel (Creon) 2 cap PO UD Take morning of surgery With a small sip of water, OTHERWISE NOTHING TO EAT OR DRINK AFTER MIDNIGHT: ketorolac 0.5 % eye drops 1 drops ophthalmic (eye) QAM acetaminophen 500 mg capsule 1,000 mg (2 x 500 mg) PO Q8H PRN(if needed) escitalopram oxalate 20 mg tablet 20 mg PO QAM Take evening before surgery fluticasone propionate 50 mcg/actuation nasal spray,suspension 1 spray intranasal HS acetaminophen 500 mg capsule 1,000 mg (2 x 500 mg) PO Q8H PRN(if needed) insulin glargine 100 unit/mL subcutaneous solution (Lantus U-100 Insulin) 13 unit subcut HS Other Notes If you have any questions please call us at [phone] or [phone] or [phone] or [phone]
--- NOTE | 2024-06-04 11:16 | Anesthesiology Consultation ---
Date of Service June 04, 2024 Assessment & Plan (1) Encounter for pre-operative examination: Plan - check BSG am DOS. - awaiting 06/06/24 [place] stress test and ultimate [place] cardiology clearance. Surgery re-scheduled after patient missed previous stress test, otherwise ac ceptable per 04/03/24 PAT note: - PCP visit (04/02/24): Stable diabetes. Pancreatic exocrine insufficiency- GI/endo monitoring. Abnormal preop EKG- cardiac referral ordered ("EKG for preop purposes April 03, 2024 noted sinus bradycardia with left axis deviation and left bundle branch block possibility for inferior infarct"). Chronic, in termittent dry cough possibly r/t losartan- patient declined adjustments/changes. Anemia/thrombocytopenia- referred to hematology (patient to call for appt). 2007 lung biopsy consistent with interstitial fibrosis. Multifatorial chronic tiredness and fatigue. Thyroid nodules being monitored. " medically stable to proceed for left knee surgical intervention/replacement but pending endocrinology review/hematology oncology follow-up/Cardiology for preop purposes" - GI visit (04/10/24): "Exocrine pancreatic insufficiency.. Will obtain testing as recommended by [facility] GI including cross sectional imaging of the pancreas as well as an elastase. Per the documentation, it does appear they are expecting follow-up with the patient after testing.. Continue Creon 2 caps before meals/snacks.. Further follow-up recommendations pending results of testing & [facility] input." > GI workload message 04/10/24, "I reviewed this patient's CT scan from [facility] . It appears he has findings of chronic pancreatitis, however the pancreatic duct is dilated concerning for pancreatolithiasis. This is an issue that our office does not manage and I would advise he either see [facility] for this abnormal CT result or see [facility] who also does biliary testing that we do not offer." - Cardiology visit (04/12/24): "..presumed ASCVD (based on age, risk factors, diminished pedal pulses), Frequent PVC's, Chronically Abnormal EKG (LBBB vs LVH with QRS widening), and Paroxysmal Ventricular Tachycardia who presents today for Preoperative Cardiac Evaluation. He is scheduled undergo Left TKA on 04/27/[address] Ramone Rogers. Patient remains active on a daily basis. He goes to the gym routinely where he does squats, lifts, rowing machine, and balance exercises in addition to calisthenics. He does not really have a cardio routine but he works out at a high pace.. He has not experienced any limiting cardiopulmonary symptoms with these activities. Patient has not experienced any angina pectoris, overt signs or symptoms of heart failure, nor has he had any symptoms suggestive of a sustained dysrhythmia. Patient does note occasional palpitations described as skipped beats -- historically these have corresponded with PVCs.. Based on his functional status without limiting cardiopulmonary symptoms I suspect that he is going to be a good surgical candidate, however based on his advanced age, diagnosis of diabetes mellitus and being limited in his aerobic activities -- I think it would be prudent to perform a Lexiscan Cardiolite to rule out any myocardial ischemia prior to surgery." - Hematology visit (04/19/24): "Borderline labs, may be related to his connective tissue disease and chronic inflammatory state. Or there may be low-level MDS. In any case I do not see that he warrants a bone marrow biopsy..At this point I recommend monitoring these labs regularly. He will return to clinic in 3 months.. Even if we find diagnosis of myelodysplastic syndrome he may not qualify for any kind of treatment given the low risk MDS at this point." - Thrombocytopenia: Updated labs 04/19/24 note stable thrombocytopenia at 77. Reviewed with Dr. Boo. Will check CBCD/T&S DOS. Ultimate anesthesia type determination based upon DOS labs. Surgeon's office made aware of plan (advised to contact us if surgeon has any further questions/guidance regarding thrombocytopenia from their perspective- no definitive plan for perioperative platelets at this time. Further decision making after DOS level recheck. OR/Miguel with blood bank aware. - Pending: LBBB + possible inferior infarct on preop EKG. PCP referred patient to cardiology. Per preop [facility] cardiac evaluation appt, preop stress test being arranged. Awaiting cardiology-ordered preop stress test ([facility] cardio, date 04/25). Patient otherwise acceptable risk for surgery." - Outpatient joint assessment: Patient is currently scheduled for inpatient pathway. If re-evaluated and patient/surgeon requests outpatient pathway, patient is not a candidate for outpatient joint program. Chart Review Chart Review: Pending: Refer to Additional Notes / Consult section and Patient seen in Pre Admission Testing Teaching & Discussion Pre-Anesthesia Teaching/Discussion Notes: Instructed NPO after midnight before surgery, except medications with 15 cc of water. Medication instructions provided according to the PAT guidelines. History Surgery Operation Date: 04/27/24 10:40 Proposed Procedures p Left Total Knee Arthroplasty - Ramone Rogers MD Operation Date: 06/19/24 12:30 Proposed Procedures p Left Total Knee Arthroplasty - Ramone Rogers MD Height/Weight Height: 5 ft 9 in Weight: 86.9 kg Allergies Allergy/AdvReac Type Severity Reaction Status Date / Time prednisone Allergy Intermediate hyperglycem Verified 05/29/24 12:47 ia pregabalin [From Lyrica] Allergy Unknown Unknown Verified 05/29/24 12:47 diphenhydramine AdvReac Intermediate hyperactive Verified 05/29/24 12:47 [From Benadryl Allergy] spironolactone AdvReac Intermediate gynecomasti Verified 05/29/24 12:47 a testosterone AdvReac Intermediate gynecomasti Verified 05/29/24 12:47 a beta blockers AdvReac Intermediate Depression Uncoded 05/29/24 12:47 Medications Home Medications Medication Instructions Recorded Confirmed Last Taken ketorolac 0.5 % eye drops 1 drops ophthalmic (eye) QAM 12/05/18 05/29/24 09/02/22 21:00 prednisolone acetate 1 % eye 1 drops ophthalmic (eye) Q2D 12/05/18 05/29/24 09/02/22 08:00 drops,suspension [id number]-dpe-jjbvka 5 mg-zeaxanth 1 cap PO QAM 05/13/20 05/29/24 09/02/22 08:00 1 mg-bilberry 7.5 mg-herbal capsule (Macular Health Formula) fluticasone propionate 50 1 spray intranasal HS 01/27/21 05/29/24 09/02/22 08:00 mcg/actuation nasal spray,suspension acetaminophen 500 mg capsule 1,000 mg (2 x 500 mg) PO Q8H PRN 09/23/21 05/29/24 09/01/22 pain #180 caps blood glucose control, normal #1 ea 02/21/23 05/15/24 Unknown (OneTouch Verio Mid Control solution) amoxicillin 500 mg tablet 2,000 mg (4 x 500 mg) PO ONCE 04/22/23 05/29/24 Unknown prior to dental procedure #4 tabs needle (disp) 18 G 18 gauge x 1" #50 ea 09/20/23 05/15/24 Unknown (BD Regular Bevel [place]) blood sugar diagnostic (OneTouch #100 ea 10/18/23 05/15/24 Unknown Verio test strips) blood-glucose sensor (Dexcom G7 12/05/23 05/15/24 Unknown Sensor device) cyanocobalamin (vitamin B-12) 2,000 mcg PO QAM 12/05/23 05/29/24 Unknown 1,000 mcg capsule safety needles 25 gauge x 5/8" (BD #50 ea 12/21/23 05/15/24 Unknown SafetyGlide Needle) syringe (disposable) 3 mL (BD #100 ea 12/21/23 05/15/24 Unknown Luer-Yee Syringe) syringe with needle 3 mL 25 x 5/8" #12 ea 01/19/24 05/15/24 Unknown (BD SafetyGlide Syringe) BD Veo Insulin Syr (half unit) 0.3 #600 ea 02/20/24 05/15/24 Unknown mL 31 gauge x 15/64" (insulin syr/ndl U100 half edilma) diclofenac sodium 1 % topical gel 4 g topical QID PRN Pain #100 grams 03/08/24 05/29/24 Unknown testosterone cypionate 100 mg/mL 60 mg (0.6 mL) subcut Q7D #10 mL 03/16/24 05/29/24 Unknown intramuscular oil (Depo-Testosterone) biotin 5,000 mcg disintegrating 5,000 mcg PO QAM 03/27/24 05/29/24 Unknown tablet calcitriol 0.25 mcg capsule 0.25 mcg PO QAM 03/27/24 05/29/24 Unknown escitalopram oxalate 20 mg tablet 20 mg PO QAM 03/27/24 05/29/24 Unknown magnesium 200 mg tablet 400 mg PO QAM 03/27/24 05/29/24 Unknown potassium chloride 20 mEq 40 meq PO QAM 03/27/24 05/29/24 Unknown tablet,extended release tamoxifen 10 mg tablet 10 mg PO QAM 03/27/24 05/29/24 Unknown olmesartan 20 mg tablet 10 mg (1/2 x 20 mg) PO QAM #45 tabs 04/18/24 05/29/24 Unknown insulin aspart (niacinamide) See Rx Instructions subcut DAILY 04/20/24 05/29/24 Unknown (U-100) 100 unit/mL subcutaneous #30 mL solution (Fiasp U-100 Insulin) chlorthalidone 50 mg tablet 25 mg (1/2 x 50 mg) PO QAM #90 tabs 04/24/24 05/29/24 Unknown xutupx-gicfbolk-jttmixd 2 cap PO UD #240 caps 04/24/24 05/29/24 Unknown 36,000-114,000-180,000 unit capsule,delay rel (Creon) insulin glargine 100 unit/mL 13 unit subcut HS 05/29/24 05/29/24 Unknown subcutaneous solution (Lantus U-100 Insulin) Past Medical History Medical History Anxiety Arthritis of knee, left Chronic fatigue Chronic kidney disease DM type 2 (diabetes mellitus, type 2) IDDM Follows with endo Edema RLE lymphedema/LLE mild edema Wears compression stockings constantly Exocrine pancreatic insufficiency Chronic diarrhea- Controlled with Creon Hearing deficit Bilateral hearing aids History of anemia History of constipation with opioids History of depression History of obstructive sleep apnea No longer uses CPAP Was re-tested twice with sleep study- no longer has ALEISHA per patient History of pressure ulcer Hx of of lower back ulcer (2007)- did see wound clinic, ulcer healed Concerned with positioning/similar issues happening with upcoming surgical course History of prostate cancer 2002; s/p prostatectomy No chemo or XRT History of thrombocytopenia 07/2023- platelets 72, 12/30/23- platelets 84 Per [facility] PCP records- aware, unknown etiology, ? r/t autoimmune condition HTN (hypertension) Hypercholesterolemia Hx Interstitial lung disease Per lung biopsy in 2007 Loose body of left knee Macular degeneration "Minimal" Neuropathy Nontoxic multinodular goiter Osteoporosis Primary hypogonadism in male Raynaud's disease without gangrene Per records, patient unsure Spinal stenosis Undifferentiated connective tissue disease Followed with rheum Patient denies h/o stroke, seizures, heart attack, heart failure, HTN, blood clots/DVTs or blood transfusions. Exercise / Class Metabolic Activity II 4-5 Yardwork/Stairs/Walk up hill (denies chest discomfort or shortness of breath with one flight of stairs) Past Family History Family History Brother Cancer Mother Cancer Other Breast cancer No family history of adverse response to anesthesia Denies family history of Ovarian cancer Prostate cancer Myocardial infarction Colorectal cancer Past Surgical History Surgical History H/O umbilical hernia repair Ventral hernia repair (06/19/20): LMA#5 at [facility] History of cataract surgery L/R History of colonoscopy History of prostate biopsy History of prostatectomy 2002 History of surgery (~2012) surgery for pressure ulcer-sacral History of thoracentesis Per remote records, patient unsure History of total right knee replacement Right TKA (09/14/21): SAB at L3/4 (1 attempt) + regional at [facility] Hx of blepharoplasty B/L upper blepharoplasty with temporal brow lift (05/06/23): LMA#5, atraumatic at [facility] Status post lung surgery "to straighten lung, it was sticking to the side of the lung cavity" (2012) Past Anesthesia History No Family Hx of Anesthesia Complications History of PONV No Hx of PONV and No Hx of Motion Sickness Social History Smoking Status: Former smoker Do You Dip or Chew Tobacco: No Smoking End Date: 60 years ago; only smoked for 2 years Hx Alcohol Use: Yes Alcohol type: wine alcohol intake frequency: other Alcohol Intake Frequency Comment: 1 drink per day "only" Hx Substance Use: No substance use type: does not use Review of Systems Patient denies chest pain, shortness of breath, dyspnea on exertion, fever, chills, cough, wheezing, or palpitations. Physical Exam Vital Signs Vitals BP 136/55 P 54 TEMP 97.8 SP02 96% on RA RESP 18 Physical Patient resting comfortably in chair in no acute distress, alert and oriented, responding appropriately throughout visit Full cervical extension range of motion without pain TMD 3.5 finger breadths Mallampati Score 2 Dentition: one temporary cap, denies chipped or loose teeth, crowns, implants or bridges Lungs: normal respiratory effort. Good air movement, clear throughout to auscultation, no adventitious breath sounds Cardiac: regular rate and rhythm, no murmurs noted Carotid arteries: negative bruit bilat Lab Results Anesthesia Preop Results Results Anesthesia Widget: WBC 5.19 K/ul (4.8-10.8) 06/04/24 Hgb 11.7 g/dl (14.0-18.0) L 06/04/24 Hct 36.1 % (42.0-52.0) L 06/04/24 Plt 77 K/uL (130-400) L 06/04/24 Na 145 mmol/L (136-145) 06/04/24 K 3.8 mmol/L (3.5-5.1) 06/04/24 Cl 108 mmol/L (98-107) H 06/04/24 CO2 33 mmol/L (21-32) H 06/04/24 BUN 31 mg/dl (6-23) H 06/04/24 Creat 1.29 mg/dl (0.6-1.4) 06/04/24 Glucose Level 195 mg/dl (70-99(Fasting)) H 06/04/24 PT 11.2 Seconds (9.0-12.0) 06/04/24 PTT 26 Seconds (21-31) 06/04/24 INR 1.0 (0.9-1.1) 06/04/24 HA1c 7.3 % (4.5-5.6) H 06/04/24 Blood Type A Positive 06/04/24 Antibody Screen NEGATIVE 06/04/24 Testing Laboratory Results Chronic anemia, thrombocytopenia stable in recent months. Electrocardiogram Date: 04/03/24 SB at 54bpm. LAD. LBBB. Possible inferior infarct, age undetermined. Chest X-Ray Date: 04/03/24 FINDINGS: The cardiac silhouette measures within normal limits. Calcification of the thoracic aorta. The hilar and mediastinal structures appear unremarkable. The lungs are clear. The osseous structures appear grossly intact. Degenerative changes of the thoracic spine. IMPRESSION: No evidence of acute cardiopulmonary disease, communicable disease or tuberculosis. No significant interval change. Stress Test Date: 06/17/20 Type: DSE Nondiagnostic dobutamine echocardiogram due to failure to achieve target heart rate. Frequent ventricular ectopy including brief runs of nonsustained VT in early recovery. Wall motion abnormalities were seen at peak infusion including the septum and inferior wall, unclear if this was related to ventricular ectopy or true ischemia. LV is normal in size and systolic function. Mild concentric LVH. Mild MR/TR. Cardiology addendum 06/08/20= "Based on the fact that patient did not have chest pain or ST deviations despite a HR in the 130's during DSE -- patient is an intermediate cardiac risk for his upcoming umbilical hernia repair."
[~2024-06-19 08:42] MED LIST changes: +BUPIVACAINE 0.25% PF 30 ML VIAL ONE; +BUPIVACAINE 0.5 % 5 MG/1 ML PF 10ML VIAL ONE; -CLB200 PO; -DVNC160 PO; -HYDR0.5T PO; -INSDGI SC; -METO5TAB25 PO; -MULT-506 PO; -NVLGI; -OSTEOBIFLEX PO
[2024-06-19] MEDS: LR 60ML/HR IV SCH (09:18)
[2024-06-19] MEDS: LR 500ML BOLUS, THEN 15ML/HR IV SCH (09:18)
--- NOTE | 2024-06-19 09:19 | History & Physical Bridge Note ---
Date of Service June 19, 2024 History & Physical Bridge Note I have examined the patient, reviewed the History & Physical and in the interval since the performance of the History & Physical I have noted the following changes of clinical significance: no changes noted
[2024-06-19] MEDS: CeleBREX 200 MG CAP PO SCH (09:34)
[2024-06-19] MEDS: METOCLOPRAMIDE HCL 10 MG TABLET PO SCH (09:34)
[2024-06-19] MEDS: ACETAMINOPHEN 500 MG TAB PO SCH (09:34)
[2024-06-19] MEDS: dexAMETHasone**PF** 10 MG/ML VIAL IV SCH (09:35)
[2024-06-19] MEDS: FAMOTIDINE 20 MG TAB PO SCH (09:35)
[2024-06-19 09:37] LABS: Basophils # (auto) 0.02 K/uL (0.00-0.20); Basophils % (auto) 0.4 %; Eosinophils # (auto) 0.17 K/uL (0.00-0.50); Eosinophils % (auto) 3.3 %; Hematocrit (blood only) 38.3 % (42.0-52.0); Hemoglobin 12.7 g/dl (14.0-18.0); Immature Granulocytes # (auto) 0.02 K/uL (0.01-0.20); Immature Granulocytes % (auto) 0.4 %; Lymphocytes # (auto) 0.88 K/uL (1.20-3.40); Lymphocytes % (auto) 17.2 %; Mean Corpuscular Hemoglobin 32.4 pg (25.0-34.0); Mean Corpuscular Hgb Conc 33.2 g/dL (32.0-36.0); Mean Corpuscular Volume 97.7 fL (80.0-100.0); Mean Platelet Volume 12.2 fL (9.4-12.4); Monocytes # (auto) 0.47 K/uL (0.11-0.59); Monocytes % (auto) 9.2 %; Neutrophils # (auto) 3.56 K/uL (1.40-6.50); Neutrophils % (auto) 69.5 %; Platelet Count 80 K/uL (130-400); RDW Coefficient of Variation 13.3 % (11.5-14.5); RDW Standard Deviation 47.5 fL (36.4-46.3); Red Blood Count 3.92 M/uL (4.70-6.10); White Blood Count 5.12 K/ul (4.8-10.8)
[2024-06-19] MEDS ORDERED: MIDAZOLAM HCL 1 MG/ML 2ML VIAL ONE (09:50)
[2024-06-19] MEDS ORDERED: ONDANSETRON INJ 2 MG/ML 2 ML VIAL IV PRN (10:59)
[2024-06-19] MEDS ORDERED: ATROPINE SULFATE 0.1 MG/ML 10ML SYR IV PRN (10:59)
[2024-06-19] MEDS ORDERED: ePHEDrine sulfate 50 MG/ML AMP IV PRN (10:59)
[2024-06-19] MEDS ORDERED: fentaNYL citrate PF 100 MCG/2 ML VIAL IV PRN (10:59)
[2024-06-19] MEDS ORDERED: PROPOFOL IV EMULSION 10 MG/ML 20 ML VIAL IV ONE (11:42)
[2024-06-19] MEDS: ceFAZolin 2000MG 2,000 MG/15 ML SYR IV SCH ×2 (11:43→21:01)
[2024-06-19] MEDS: ORTHO JOINT ANESTHETIC ONE (12:10)
[2024-06-19] MEDS: ROPIV 0.5% 246mg, Ketorolac 30mg, EPINEPHrine 0.5mg in NSS INFIL SCH (12:10)
[2024-06-19] MEDS: TRANEXAMIC ACID 1,000 MG **IV Intra-op IV SCH (12:25)
--- NOTE | 2024-06-19 13:21 | Operative Report ---
PG Post Operative Report Pre & Post Diagnosis Operation Date: 06/19/24 10:40 Pre-Op Diagnosis: Left Knee Degenerative Joint Disease Post-Op Diagnosis: Left Knee Degenerative Joint Disease I identified the patient and participated in the time-out.: Yes Procedure Operation Date: 06/19/24 10:40 Actual Procedures p Left Total Knee Arthroplasty(Left) - Ramone Rogers MD Surgeon Ramone Rogers MD Director Report Jay Montgomery PA-C Estimated Blood Loss 50 Findings Consistent with Post-Op Diagnosis Specimens Left knee sent for pathology. Anesthesia Type Spinal MAC Complications none Disposition Accompanied Patient To Recovery: No Indications Patient is an 89-year-old gentleman fairly active and healthy who has a long history of bilateral knee arthritis. He had a right knee replaced 3 years ago. Over time he developed increased pain discomfort in his left knee. They failed all conservative measures. Elected proceed with left total knee replacement. Description of Procedure Operative implants consisted of: 1. Biomet Vanguard size 67.5 left posterior stabilized femoral component. 2. Biomet size 75 tibial tray. 3. 10 mm posterior stabilized polyethylene insert. 4. 31 x 8 all poly patella. The patient was taken the operating, identified, placed on the operating table in the supine position. All conductors were appropriately padded. IV antibiotics were provided by anesthesia team. Spinal anesthetic and adductor canal block had been provided in the holding area. A left thigh turn was then placed. The left lower extremity was then prepped and draped in usual sterile fashion. The left leg was elevated and exsanguinated with use of an Esmarch and a turn was placed at 300 mmHg. An anterior approach left knee was then performed to longitudinal incision centered over the patella. Sharp dissection was Through subcutaneous tissue down the extensor mechanism. A medial parapatellar arthrotomy incision was made. Some subperiosteal dissection was carried out medially. The fat pad was dissected from his patella tendon. Lateral patellofemoral ligament was released. Patella subluxated laterally and the knee was flexed. The osteophytes were taken off distal femur. The ACL and PCL were then released from distal femur the tibia subluxated anteriorly. The external tibial alignment jig was then placed on the anterior face the tibia and adjusted 14 mm medially. The proximal tibial cut was made essentially flush with the most efficient aspect of the medial tibial plateau. Some osteophytes taken off medially. The tibia sized to a size 75. Attention was then drawn to the femur. The distal femur was entered with a sharp drill. Intramedullary canal was suction. A left 6 degree valgus cutting guide was placed. Distal femoral cutting block was pinned in place. Distal femoral cut was made to take an additional 3 mm of bone off distal femur. The femur was then sized to a size 67.5. The AP cutting block was pinned parallel to the epicondylar axis which was 5 degrees of external rotation. The anterior cut, anterior chamfer, posterior cut, posterior chamfer cuts were then made. The box cutting guide was placed and adjusted slightly laterally. The box cut was made. The knee was flexed. The remnants of the medial and lateral menisci were excised. The osteophytes taken off the posterior aspect the femur. A trial femoral component was placed. The tibial tray was pinned Urvashi external rotation and the drill and stem punch were used. Defect in proximal tibia for the tibial tray. Knee was then trialed and the 10 mm insert fit most appropriately. I did light tenderly femoral little blood on the loose side as he felt his other knee was a bit tight. Attention was then drawn to the patella. The patella was cleaned of all soft tissues. The patella thickness measured 25 mm in thickness was cut down to 15. Was sized to a size 31 patella. The lug holes were drilled for 31 patella. The lateral osteophytes removed. Patella bu tton was placed. Knee was taken through range of motion patella tracked nicely with no thumbs test. Attention was then drawn to placement permanent components. All trial components were removed. Bone plug was placed in the distal femur limit blood loss. A double batch Palacos G cement was mixed. A Biomet Vanguard size 67.5 left posterior stabilized femoral component, a size 75 tibial tray, a 10 mm posterior Byce polyethylene insert, and a 31 x 8 all poly patella then cemented in place. The knee was brought out into full extension till cement hardened. Final cement check was then performed. The pericapsular tissues were injected with a total 100 cc of Ortho mix. The patient did receive 1 g tranexamic acid. The tourniquet was then let down for final tourniquet time 52 minutes. Hemostasis assured use electrocautery. Extensor Meclomen closed with combination 1 PDS suture and then 1 Vicryl suture in a [id number] fashion. Extensor Meclomen was checked found to be intact with subcutaneous tissue then closed with 2 Dexon suture in buried interrupted fashion skin was closed skin sky. Leg was then cleaned and dried and a sterile dressing was Xeroform, 4 fours, sterile cast padding, [place] bandage were applied. Patient then transferred to the recovery room in stable condition. Patient tolerated the procedure well and there were no complications. Jay Montgomery, my physician photography assistant, was present for the entire procedure. His assistance was essential and required for appropriate patient positioning, prepping and draping, surgical exposure, performing the technical details of the operation, placement the implants, closure of the wound, and placement of the sterile bandage. I attest to the content of the Intraoperative Record and any orders documented therein. Any exceptions are noted below.
--- NOTE | 2024-06-19 13:29 | XRay Report ---
XR knee LT 1 or 2V routine CLINICAL HISTORY: Postoperative evaluation. COMPARISON: Left knee radiographs November 08, 2022. FINDINGS: Alignment of the total left knee arthroplasty is anatomic. There is no periprosthetic frac ture or unexpected radiopaque foreign body. There are skin sky. IMPRESSION: Expected findings following total left knee arthroplasty. ACT 112: Negative or not required by law. Electronically signed by: Bryant Lisa M.D. 06/19/2024 1:28 PM
--- OUTSIDE RECORDS SUMMARY | 2024-06-19 13:37 | External Medical Summary | Summary of Care ---
Author Name Unknown Organization [facility] Address [address] [place] [address] Phone [phone] Care Team Providers Care Software Development Leader Name Role Phone Laila Cramer MD [facility] Care Provider Reason for Visit * Reason Onset Date Comments Appointment 06/11/2024 Encounter Details Date Type Department Care Team (Late st Contact Info) Description 06/11/2024 Telephone Gastroenterology, [facility] [address] [place] [address] Services, Scheduling [address] [place] [address] Appointment Allergies Active Allergy Reactions Criticality Noted Date Comments Diphenhydramine Hcl (Sleep) Other (Please comment) 02/09/2016 Becomes hyperactivity Beta Adrenergic Blockers Neuro complications (Please comment) 02/09/2016 depression Corticosteroids Medium 04/29/2021 Other reaction(s): very elevated blood sugars Losartan Cough 11/01/2022 Pregabalin 02/09/2016 Makes patient feel irritable Metolazone 05/03/2023 Other Reaction(s): muscle pain Gabapentin 02/09/2016 irritable Povidone Iodine 11/01/2022 Other Reaction(s): Unknown Spironolactone Other (Please comment) 02/09/2016 gynecomastia Testosterone 05/03/2017 documented as of this encounter (statuses as of 06/15/2024) Medications Fluticasone Propionate 50 MCG/ACT Nasal Suspension Active BD Pen Needle Ryanne 2nd Gen 32G X 4 MM USE 3 TIMES A DAY 03/26/19 22 Active Ketorolac Tromethamine 0.5 % Ophthalmic Solution 01/24/20 21 Active prednisoLONE Acetate 1 % Ophthalmic Suspension (Pred Forte) 1 Drop. Active Lutein 20 MG Oral Capsule Take 1 Capsule by mouth in the morning. Active Vitamin B-12 1000 MCG Oral Tablet Take by mouth 0.5 Tablets in the morning. 30 Tablet 09/25/19 22 Active Additional Information Patient taking differently: 1,000 mcgOral Daily(AM), Reported on 06/07/2024 Diclofenac Sodium 1 % External Gel (Voltaren) Apply topically to affected area 4 g every 6 hours as needed (ankle or left knee pain). 150 g 09/25/19 22 Active Additional Information Patient not taking.Reported on 06/07/2024 Escitalopram Oxalate 10 MG Oral Tablet (Lexapro) Take by mouth 1 Tablet in the morning. 30 Tablet 09/25/19 22 Active Insulin Glargine 100 UNIT/ML Subcutaneous Solution Inject 13 Units under the skin at bedtime. 1 Each 09/25/19 22 Active Vitamin D 125 MCG (5000 UT) Oral Capsule Take by mouth 5,000 Units daily . 30 Capsule 09/25/19 22 Active Fiasp 100 UNIT/ML Injection Solution (Insulin Aspart (w/Niacinamide)) Inject as directed . Per carb counting scale 09/25/19 22 Active Alendronate Sodium 70 MG Oral Tablet (Fosamax) Take 1 Tablet (70 mg) by mouth once a week. 12 Tablet 1 02/25/20 22 Active NATURAL SUPPLEMENT Take by mouth daily. Takes [facility] daily Active Acetaminophen 500 MG Oral Capsule 2 Capsules. 09/24/19 22 Active Amoxicillin 500 MG Oral Tablet Activ e OneTouch Verio In Vitro Liquid 02/22/20 23 Active Erythromycin 5 MG/GM Ophthalmic Ointment APPLY 0.5 INCH TO EYELID INCISIONS TWICE A DAY ONLY AFTER SURGERY 04/22/19 24 Active OneTouch Verio In Vitro Strip 02/22/20 23 Active BD Hypodermic Needle 18G X 1" USE ONCE WEEKLY WITH TESTOSTERONE 02/08/20 23 Active Depo-Testosterone 100 MG/ML Intramuscular Solution INJECT 1ML (100 MG) SUBCUTANEOUSLY EVERY 7 DAYS 04/21/19 24 Active Creon 51850-660512 UNIT Oral Capsule Delayed Release Particles TAKE 2 CAPSULES WITH MEALS AND 1 CAPSULE WITH SNACK. 03/04/20 23 Active Potassium Chloride Madhuri ER 20 MEQ Oral Tablet Extended Release 20 Milliequivalent. 09/01/19 23 Active Sodium Fluoride 5000 PPM 1.1 % Dental Paste PLEASE SEE ATTACHED FOR DETAILED DIRECTIONS 02/18/20 Active BD Integra Syringe 25G X 5/8" 3 ML USE ONE PER WEEK TO INJECT INSULIN 02/09/20 23 Active Olmesartan Medoxomil 20 MG Oral Tablet (Benicar) 1 daily 07/28/19 24 Active Chlorthalidone 50 MG Oral Tablet (Hygroton) 1 daily 07/07/19 24 Active tiZANidine HCl 4 MG Oral Tablet (Zanaflex)Indicat ions:Undifferenti ated connective tissue disease (HCC),HLA B27 (HLA B27 positive),Bilater al leg cramps Take 1 Tablet by mouth at bedtime. 7 Tablet 08/23/19 24 Active Additional Information Patient not taking.Reported on 06/07/2024 Calcium Carbonate Antacid 400 MG Oral Tablet Chewable Take 1 Tablet by mouth in the morning. Active Magnesium Amino Acid Chelate 20 % Powder Take 1 Tablet by mouth in the morning. 12/26/19 24 Active documented as of this encounter (statuses as of 06/15/2024) Active Problems Problem Noted Date Diagnosed Date Status post total right knee replacement 022 Hypertension goal BP (blood pressure) < 140/90 0 09/24/2021 Glaucoma of left eye 09/24/2021 HLA B27 (HLA B27 positive) 04/29/2021 Primary osteoarthritis of both knees 04/29/2021 Type 2 diabetes mellitus wit h hemoglobin A1c goal of less than 8.0% 04/29/2021 H/O prostate cancer 04/29/2021 Stage 3a chronic kidney disease 04/29/2021 Senile osteoporosis 04/29/2021 Low testosterone level in male 12/22/2015 Undifferentiated connective tissue disease 12/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 09/24/2015 documented as of this encounter (statuses as of 06/15/2024) Resolved Problems Problem Noted Date Diagnosed Date Resolved Date Status post total right knee replacement 09/24/2021 11/04/2021 TRAVEL AND MOTION 07/27/2004 09/24/2021 documented as of this encounter (statuses as of 06/15/2024) Immunizations Name Administration Dates Next Due COVID-19 mRNA, LNP-s, No Pre serve, 2-Dose Series ([employer]) 08/28/2021,12/15/2020,06/07/2020,05/17 COVID-19, LNP-s, No Preserve , Esau-sucrose, Ages 12+ (Pfizer) 08/28/2021,06/07/2020,05/17/2019 Covid-19, Mrna, Lnp-s, Pf, B ivalent, 30 Mcg, IM, 12 yrs and above ([employer]) 12/16/2021 HEP A - Hepatitis A (Adult > 18 yrs) 03/28/2012, 07/27/2004 Hepatitis B, 20+ yrs 09/27/2016,03/29/2016,02/26 Pneumococcal Conjugate Vacc, 13 Valent (Prevnar) 07/22/2014 Pneumococcal Polysaccharide PPV23 (Pneumovax) 06/12/2010,07/27/2004 RSV Vac., Bivalent, Perfusio n F, Pf,0.5 Ml (Abrysvo) 04/26/2023 Season Influenza, Quad, PF, Adjuvanted, 65+ Yrs, IM (FLUAD) 01/02/2023 Seasonal Influenza, High Dos e, Trivalent, PF, IM (Fluzone HD) 12/19/2018,02/05/2015 Seasonal Influenza, Quadriva lent Hd, 65+ Yrs 12/11/2021 TD - Tetanus/Diptheria (ADULT) 07/27/2004 TD, Preservative Free 12/16/2020,07/27/2004 Typhoid Vaccine Oral (Vivotif) 07/27/2004 Yellow Fever Vaccine, Live (YF-Vax) 03/28/2012 Zoster Vaccine Recombinant (Shingrix) 12/19/2018 ,09/14/2018 documented as of this encounter Social History Tobacco Use Types Packs/Day Years Used Date Smoking Tobacco: Never Smokeless Tobacco: Never Alcohol Use Standard Drinks/Week Comments Yes 0 (1 standard drink = 0.6 oz pur e alcohol) glass wine 4-5 days per week Sex and Gender Information Value Date Recorded Sex Assigned at Not on file Legal Sex Male 6:00 AM EST Gender Identity Not on file Sexual Orientation Not on file documented as of this encounter Miscellaneous Notes * Telephone Encounter - Deena Temple PA-C - 06/15/2024 2:14 PM EDT Noted thanks * Telephone Encounter - Vashti Beal RN - 06/15/2024 9:03 AM EDT Spoke to patient. He had cardiology appointment. Cardiology note is in the system. Per cardiology, "based on his functional status without limiting cardiopulmonary symptoms and his negative Lexiscan Cardiolite -- patient is an acceptable surgical risk to proceed with left TKA as scheduled. There is no need for further workup at this time." Venkat MONTENEGRO patient cleared by cardiology for TKA. Explained to patient that we will keep his EUS/ERCP as scheduled. Thanks * Telephone Encounter - Veronica Ledesma OSA - 06/15/2024 7:52 AM EDT Please advise per previous msg ALEISHA Pitt 06/15/2024 7:52 AM * Telephone Encounter - Rafael Dominguez OSA - 06/12/2024 4:45 PM EDT Pt would like a call back for a better in depth reason. He stated he just had a test done and isn'tsure what else he needs to do. Please contact pt. Thank you * Telephone Encounter - Daphnie Ley OSA - 06/12/2024 10:39 AM EDT PER DEENA MESSAGE ON ORDER FOR THE PT ERCP. PT IS NEEDING CARD CLEARANCES BEFORE THE PROCEDURES. ? Return if symptoms worsen or fail to improve. EUS/ERCP Please get cards clearance - sees Guill[facility]read[facility] CALLED AND LM FOR PT TO CONTACT CARDIOLOGY FOR THE CLEARANCE OR IF HE ALREADY HAD AN APPT RECENTLY THEN NEEDING THAT INFORMATION FOR THE PROCEDURES. * Telephone Encounter - Ute Alvarado OSA - 06/11/2024 12:12 PM EDT Orders for EUS and ERCP. Spoke to pt, lupe'marcelino 07/30/24 at . * Telephone Encounter - Rafael Dominguez OSA - 06/11/2024 11:59 AM EDT Pt has an order for an EUS. Please contact pt to get scheduled. Thank you documented in this encounter Plan of Treatment Upcoming Encounters Date Type Department Care Team (Latest Contact Info) Description 07/30/2024 8:45 AM EDT Hospital Encounter ENDO [facility], Endoscopy Room [facility] [address] [place] [phone] Ramón Tim, [address] [place] [address] 07/30/2024 8:45 AM EDT - 07/30/2024 9:45 AM EDT Surgery ENDO [facility], Endoscopy Room [facility] [address] [place] [phone] Ramón Tim, [address] [place] [address] ESOPHAGOGASTRODUODENOSCOPY (EGD), FLEXIBLE, TRANSORAL, ENDOSCOPIC ULTRASOUND 09/11/2024 10:40 AM EDT Office Visit Rheumatology [facility] [address] [place] [phone] Rojas Mueller MD [address] [place] [address] Scheduled Procedures Name Priority Associated Diagnoses Date/Ti me ESOPHAGOGASTRODUODENOSCOPY ( EGD), FLEXIBLE, TRANSORAL, ENDOSCOPIC ULTRASOUND Recall Abnormal CT of the abdomen Pancreatic insufficiency 07/30/2024 8:45 AM EDT ENDOSCOPIC RETROGRADE CHOLANGIOPANCREATOGRAPHY (ERCP) DIAGNOSTIC Recall Abnormal CT of the abdomen Pancreatic insufficiency 07/30/2024 8:45 AM EDT Health Maintenance Due Date Last Done Comments Depression Screening 1947 Albumin/Creatinine Ratio 1954 CKD PHOS USE SMARTSET 33383 1954 Diabetic Foot Exam 1954 VITAMIN D LEVEL ONCE IN A LIFETIME-USE SMARTSET# 56600 1976 DTap/Tdap Vaccines (1 - Tdap) 12/17/2020 12/16/2020, 07/27/2004, 07/27/2004 Diabetic Eye Exam 10/26/2023 10/25/2022, , 10/25/2022, Additional history exists COVID-19 Vaccine ( season) 2023 12/08/2022, 12/08/2022, 12/16/2021, Additional history exists Influenza Vaccine (FLU shot) (#1) 2023 01/02/2023, 12/11/2021, 12/19/2018, Additional history exists DXA Scan 01/27/2024 01/26/2022, 10/11/2019 CKD HGB USE SMARTSET 68951 04/25/202404/25, 04/29/2022, 09/16/2021 HbA1c 06/29/2024 12/30/2023, 10/21/2021 Pneumococcal Vaccine: 50+ Years Completed 07/22/2014, 06/12/2010, 07/27/2004 Hepatitis B Vaccine Completed 09/27/2016, 03/29/2016, 02/27/2016 Zoster Vaccines Completed 12/19/2018, 09/14/2018 HPV (Gardasil) Vaccine Aged Out No lo nger eligible based on patient's age to complete this topic MENINGOCOCCAL (MENACTRA/MENVEO) Aged Out No longer eligible based on patient's age to complete this topic Meningitis B Vaccine (Bexsero/Trumemba) Aged Out No longer eligible based on patient's age to complete this topic documented as of this encounter Medical Devices Not on filedocumented as of this encounter Care Teams Software Development Leader Relationship Specialty Start Date End Date Laila Cramer MD [address] [place] [address] PCP - General Internal Medicine 04/29/21 documented as of this encounter
--- OUTSIDE RECORDS SUMMARY | 2024-06-19 13:37 | External Medical Summary | Summary of Care ---
Author Name Unknown Organization [facility] Address [address] [place] [address] Phone [phone] Care Team Providers Care Escalator Mechanic Name Role Phone Laila Cramer MD [facility] Care Provider Reason for Visit * Reason Onset Date Comments Appointment 06/11/2024 Encounter Details Date Type Department Care Team (Late st Contact Info) Description 06/11/2024 Telephone Gastroenterology, [facility] [address] [place] [address] Services, Scheduling [address] [place] [address] Appointment Allergies Active Allergy Reactions Criticality Noted [...] EVERY 7 DAYS 04/21/19 24 Active Creon [id number] UNIT Oral Capsule Delayed Release Particles TAKE [...] mRNA, LNP-s, No Pre serve, 2-Dose Series ([employer]) 08/28/2021,12/15/2020,06/07/2020,05/17 COVID-19, LNP-s, No Preserve , Esau-sucrose, Ages 12+ (Pfizer) 08/28/2021,06/07/2020,05/17/2019 Covid-19, Mrna, Lnp-s, Pf, B ivalent, 30 Mcg, IM, 12 yrs and above ([employer]) 12/16/2021 HEP A - Hepatitis A (Adult [...] encounter Miscellaneous Notes * Telephone Encounter - Vashti Beal RN [...] need for further workup at this time." Leena- I patient cleared by cardiology for TKA. Explained [...] clearance - sees Guillermo Treadwell PA-C at [place] CALLED AND LM FOR PT TO CONTACT CARDIOLOGY FOR THE CLEARANCE OR IF HE ALREADY HAD AN APPT RECENTLY THEN NEEDING THAT INFORMATION FOR THE PROCEDURES. * Telephone Encounter - Ute Alvarado OSA - 06/11/2024 12:12 PM EDT Orders for EUS and ERCP. Spoke to pt, lupe'd 07/30/24 at . * Telephone Encounter - Rafael Dominguez OSA - 06/11/2024 11:59 AM EDT Pt has an order for an EUS. Please contact pt to get scheduled. Thank you documented in this encounter Plan of Treatment Upcoming Encounters Date Type Department Care Team (Latest Contact Info) Description 07/30/2024 8:45 AM EDT Hospital Encounter [facility]O [facility], Endoscopy Room [facility] [address] [place] [phone] Ramón Tim, [address] [place] [address] 07/30/2024 8:45 AM EDT - 07/30/2024 9:45 AM EDT Surgery [facility], Endoscopy Room [facility] [address] [place] [phone] Ramón Tim DO [address] [place] [address] ESOPHAGOGASTRODUODENOSCOPY (EGD), FLEXIBLE, TRANSORAL, ENDOSCOPIC ULTRASOUND 09/11/2024 10:40 AM EDT Office Visit Rheumatology [facility] [address] [place] [phone] Rojas Mueller [facility] [address] [facility] [address] Scheduled Procedures Name Priority Associated Diagnoses Date/Ti me ESOPHAGOGASTRODUODENOSCOPY ( EGD), FLEXIBLE, TRANSORAL, ENDOSCOPIC ULTRASOUND Recall Abnormal CT of the abdomen Pancreatic insufficiency 07/30/2024 8:45 AM EDT ENDOSCOPIC RETROGRADE CHOLANGIOPANCREATOGRAPHY (ERCP) DIAGNOSTIC Recall Abnormal CT of the abdomen Pancreatic insufficiency 07/30/2024 8:45 AM EDT Health Maintenance Due Date Last Done Comments Depression Screening 1947 Albumin/Creatinine Ratio 1954 CKD PHOS USE SMARTSET 58969 1954 Diabetic Foot Exam 1954 VITAMIN D LEVEL ONCE IN A LIFETIME-USE SMARTSET# 66079 1976 DTap/Tdap Vaccines (1 - Tdap) 12/17/2020 12/16/2020, 07/27/2004, 07/27/2004 Diabetic Eye Exam 10/26/2023 10/25/2022, , 10/25/2022, Additional history exists COVID-19 Vaccine ( season) 2023 12/08/2022, 12/08/2022, 12/16/2021, Additional history exists Influenza Vaccine (FLU shot) (#1) 2023 01/02/2023, 12/11/2021, 12/19/2018, Additional history exists DXA Scan 01/27/2024 01/26/2022, 10/11/2019 CKD HGB USE SMARTSET 86188 04/25/202404/25, 04/29/2022, 09/16/2021 HbA1c 06/29/2024 12/30/2023, 10/21/2021 [...] filedocumented as of this encounter Care Teams Escalator Mechanic Relationship Specialty Start Date End Date Laila Cramer MD [address] [place] [address] PCP - General Internal Medicine 04/29/21 documented as of this encounter
--- OUTSIDE RECORDS SUMMARY | 2024-06-19 13:38 | External Medical Summary | Summary of Care ---
Author Name Unknown Organization [facility] Address [address] [place] [address] Phone [phone] Care Team Providers Care Head Waiter Name Role Phone Laila Cramer MD [facility] Care Provider Reason for Visit * Reason Onset Date Comments Appointment 06/11/2024 Encounter Details Date Type Department Care Team (Late st Contact Info) Description 06/11/2024 Telephone Gastroenterology, [facility] [address] [place] [address] Services, Scheduling [address] [place] [address] Appointment Allergies Active Allergy Reactions Criticality Noted [...] EVERY 7 DAYS 04/21/19 24 Active Creon [id number] UNIT Oral Capsule Delayed Release Particles TAKE [...] mRNA, LNP-s, No Pre serve, 2-Dose Series ([employer]) 08/28/2021,12/15/2020,06/07/2020,05/17 COVID-19, LNP-s, No Preserve , Esau-sucrose, Ages 12+ (Pfizer) 08/28/2021,06/07/2020,05/17/2019 Covid-19, Mrna, Lnp-s, Pf, B ivalent, 30 Mcg, IM, 12 yrs and above ([employer]) 12/16/2021 HEP A - Hepatitis A (Adult [...] encounter Miscellaneous Notes * Telephone Encounter - Veronica Ledesma, ALEISHA - 06/15/2024 7:52 AM EDT Please advise [...] OSA - 06/12/2024 10:39 AM EDT PER [employer] MESSAGE ON ORDER FOR THE PT ERCP. PT IS NEEDING CARD CLEARANCES BEFORE THE PROCEDURES. ? Return if symptoms worsen or fail to improve. EUS/ERCP Please get cards clearance - sees Guillermo Treadwell PA-C at [place] CALLED AND LM FOR PT TO CONTACT [...] EDT Hospital Encounter ENDO [facility], Endoscopy Room [facility] [address] [place] [phone] Ramón Tim, DO [address] [place] [address] 07/30/2024 8:45 AM EDT - 07/30/2024 9:45 AM EDT Surgery [facility] [address] [place] [phone] Ramón Tim, DO [address] [place] [address] ESOPHAGOGASTRODUODENOSCOPY (EGD), FLEXIBLE, TRANSORAL, ENDOSCOPIC ULTRASOUND 09/11/2024 10:40 AM EDT Office Visit Rheumatology [facility] [address] [place] [phone] Rojas Mueller MD [facility] [place] [address] Scheduled Procedures Name Priority Associated Diagnoses Date/Ti me ESOPHAGOGASTRODUODENOSCOPY ( EGD), FLEXIBLE, TRANSORAL, ENDOSCOPIC ULTRASOUND Recall Abnormal CT of the abdomen Pancreatic insufficiency 07/30/2024 8:45 AM EDT ENDOSCOPIC RETROGRADE CHOLANGIOPANCREATOGRAPHY (ERCP) DIAGNOSTIC Recall Abnormal CT of the abdomen Pancreatic insufficiency 07/30/2024 8:45 AM EDT Health Maintenance Due Date Last Done Comments Depression Screening 1948 Albumin/Creatinine Ratio 1954 CKD PHOS USE SMARTSET 74076 1954 Diabetic Foot Exam 1954 VITAMIN D LEVEL ONCE IN A LIFETIME-USE SMARTSET# 78546 1976 DTap/Tdap Vaccines (1 - Tdap) 12/17/2020 12/16/2020, 07/27/2004, 07/27/2004 Diabetic Eye Exam 10/26/2023 10/25/2022, , 10/25/2022, Additional history exists COVID-19 Vaccine ( season) 2023 12/08/2022, 12/08/2022, 12/16/2021, Additional history exists Influenza Vaccine (FLU shot) (#1) 2023 01/02/2023, 12/11/2021, 12/19/2018, Additional history exists DXA Scan 01/27/2024 01/26/2022, 10/11/2019 CKD HGB USE SMARTSET 93846 04/25/202404/25, 04/29/2022, 09/16/2021 HbA1c 06/29/2024 12/30/2023, 10/21/2021 [...] filedocumented as of this encounter Care Teams Head Waiter Relationship Specialty Start Date End Date Laila Cramer MD [address] [place] [address] PCP - General Internal Medicine 04/29/21 documented as of this encounter
[2024-06-19] MEDS ORDERED: [UNRECOGNIZED DRUG - SUPPLY] SCH (14:43)
[2024-06-19] MEDS ORDERED: bisacodyL 10 MG SUPP PR PRN (14:43)
[2024-06-19] MEDS ORDERED: PHARMACY GLYCEMIC MGMT CONSULT PRN (14:43)
[2024-06-19] MEDS ORDERED: GLUCOSE 10 TAB/TUBE PO PRN (14:43)
[2024-06-19] MEDS ORDERED: NO NSAIDS SCH (14:43)
[2024-06-19] MEDS ORDERED: TAMSULOSIN HCL 0.4 MG CAP PO PRN (14:43)
[2024-06-19] MEDS ORDERED: GLUCAGON FOR INJ 1 MG VIAL SQ PRN (14:43)
[2024-06-19] MEDS ORDERED: GLUCOSE 40% GEL 15 GM TUBE PO PRN (14:43)
[2024-06-19] MEDS ORDERED: NON-FORMULARY MEDICATION (Blood Sugar Diagnostic [Onetouch Verio Test Strips] strip) SCH (14:43)
[2024-06-19] MEDS ORDERED: DEXTROSE 50% 50 ML SYRINGE IV PRN (14:43)
[2024-06-19] MEDS ORDERED: ALUMINUM/MAGNESIUM SUSP 30 ML UDC PO PRN (14:43)
[2024-06-19] MEDS ORDERED: NALOXONE HCL 0.4 MG/1 ML VIAL/CARP IV PRN (14:43)
[2024-06-19] MEDS ORDERED: CARBOHYDRATES FOR HYPOGLYCEMIA PO PRN (14:43)
[2024-06-19] MEDS ORDERED: PANCREAZE (LIPASE 10,500U) CAP PO PRN (15:19)
--- NOTE | 2024-06-19 15:31 | Pharmacy Report ---
Pharmacy Glycemic Short Note 2 - Date of Service June 19, 2024 - Glycemic Short BSG Results (Last 24 hours): 06/19/24 06/19/24 09:14 13:14 POC Glucose 161 H 127 H OUTPATIENT ANTIDIABETIC REGIMEN: * Lantus 15 units SC HS * Fiasp SSI (Goal BSG < 180 mg/dL; CF 18; CR 13) HbA1c: * 7.3% (06/04/24) ASSESSMENT: * 89 yo M admitted on 06/19/24 postoperatively following a left total knee arthroplasty. Pharmacy has been consulted to assist with inpatient glycemic management. Patient is a Type 2 diabetic as an outpatient. Please refer to outpatient regimen and most recent HbA1c above. * Preop BSG was 161 mg/dL while postop BSG was 127 mg/dL. Did take normal basal dose last evening prior to admission. No steroids received perioperatively. Ordered a T2DM diet, will follow to see if patient tolerates this evening. * Basal will be ordered with a 33% reduction in home dosing. Novolog to start based on weight/stress of 2-3. Goal range of 110-140 mg/dL will be targeted with ultimate goal of keeping postop BSGs less than 180 mg/dL. PLAN FOR INPATIENT GLYCEMIC CONTROL: * Basal insulin * Lantus 10 units SC HS * Bolus insulin * NovoLog per scale ACHS or Q6hrs while NPO * Goal Range: Low 110 mg/dL - High 140 mg/dL * Correction Factor: 20 mg/dL/unit * Nutritional / Prandial insulin per carb ratio of 1 unit per 8 grams CHO consumed
--- NOTE | 2024-06-19 16:09 | Anesthesiology Progress Note ---
Date of Service June 19, 2024 Anesthesia Post Procedure Vital Signs Vital Signs: Temp Pulse Pulse Resp BP Pulse Ox O2 Del Method 06/19/24 15:22 36.4 C L 50 L 14 122/58 L 97 Room Air 06/19/24 14:51 36.6 C 51 L 16 128/63 98 Room Air 06/19/24 14:20 36.6 C 54 L 16 128/50 L 98 Room Air 06/19/24 14:00 36.4 C L 61 19 114/59 L 98 Room Air 06/19/24 13:50 55 L 15 107/53 L 100 Nasal Cannula 06/19/24 13:40 50 L 14 131/48 L 99 Oxymask 06/19/24 13:30 55 L 14 119/51 L 99 Oxymask 06/19/24 13:20 52 L 13 126/49 L 100 Oxymask 06/19/24 13:12 37.1 C 54 L 15 111/52 L 100 Oxymask 06/19/24 09:10 36.6 C 62 20 117/52 L 96 Room Air O2 Flow Rate 06/19/24 15:22 06/19/24 14:51 06/19/24 14:20 06/19/24 14:00 06/19/24 13:50 2 06/19/24 13:40 2 06/19/24 13:30 4 06/19/24 13:20 4 06/19/24 13:12 6 06/19/24 09:10 Transfer of Care Handoff Completed per policy Notes Mental Status: alert / awake / arousable Patient Amnestic to Procedure: Yes Nausea / Vomiting: adequately controlled Pain: adequately controlled Airway Patency, RR, SpO2: stable & adequate BP & HR: stable & adequate Hydration State: stable & adequate Neuraxial Anesthesia: was administered and sensory block is resolving Anesthetic Complications: no major complications apparent and Pt Satisfied with anesthetic care
[2024-06-19] MEDS ORDERED: PANCREAZE (LIPASE 10,500U) CAP PO SCH (16:30)
[2024-06-19] MEDS: PANCREAZE (LIPASE 10,500U) CAP PO SCH (17:03)
[2024-06-19] MEDS: FERROUS GLUCONATE 324 MG TAB PO SCH (17:05)
[2024-06-19] MEDS: ASCORBIC ACID 500 MG TAB PO SCH (17:05)
[2024-06-19] MEDS: INSULIN ASPART PER UNIT CHARGE SC SCH (17:14)
[2024-06-19] MEDS: TRANEXAMIC ACID / 0.7% NACL 1,000 MG/100 ML BAG IV SCH (18:48)
[2024-06-19] MEDS: ASPIRIN 81 MG ECTAB PO SCH (21:01)
[2024-06-19] MEDS: SENNA 8.6 MG TAB PO SCH (21:01)
[2024-06-19] MEDS: FLUTICASONE PROPIONATE NA SPR 16 GM BTL NAE SCH (21:01)
[2024-06-19] MEDS: DOCUSATE SODIUM 100 MG CAP PO SCH (21:01)
[2024-06-19] MEDS: LANTUS PER UNIT CHARGE SQ SCH (21:57)
[2024-06-19] MEDS: oxyCODONE HCL IR 5 MG TAB (IMMEDIATE RELEASE) PO PRN (22:06)
[2024-06-20] MEDS: CEROVITE ADV FORMULA TAB PO SCH (07:48)
[2024-06-20] MEDS: TAMOXIFEN CITRATE 10 MG TABLET PO SCH (07:48)
[2024-06-20] MEDS: MULTIVITAMIN TAB PO SCH (07:49)
[2024-06-20] MEDS: CALCITRIOL 0.25 MCG CAPSULE PO SCH (07:49)
[2024-06-20] MEDS: ESCITALOPRAM OXALATE 20 MG TAB PO SCH (07:50)
[2024-06-20] MEDS: LOSARTAN POTASSIUM 25 MG TAB PO SCH (07:51)
[2024-06-20] MEDS: MAGNESIUM OXIDE 400 MG TAB PO SCH (07:51)
[2024-06-20] MEDS: CHLORTHALIDONE 25 MG TAB PO SCH (07:51)
[2024-06-20] MEDS: prednisoLONE acetate 1% OP SUSP 5 ML BTL OP SCH (07:52)
[2024-06-20] MEDS: CYANOCOBALAMIN (B-12) 500 MCG TABLET PO SCH (07:52)
[2024-06-20] MEDS: KETOROLAC 0.5% OP SOLN 5 ML BTL OP SCH (07:53)
[2024-06-20] MEDS: POTASSIUM CHLORIDE CRTAB 20 MEQ TABCR PO SCH (08:05)
[2024-06-20] MEDS ORDERED: NON-FORMULARY MEDICATION (Biotin 5,000 mcg Tablet,Disintegrating) PO SCH (09:00)
[2024-06-20] MEDS: METOCLOPRAMIDE HCL INJ 5 MG/ML 2 ML VIAL IV PRN (09:23)
--- NOTE | 2024-06-20 09:58 | Orthopedic Progress Note ---
Date of Service June 20, 2024 Assessment & Plan (1) Status post left knee replacement: Assessment: Status post left total knee arthroplasty. Plan: Overall, he is doing quite well today with good pain control the left knee. He will work with physical therapy later this morning to work on ambulation and range of motion exercises. He is currently hoping to be discharged to [place] for rehabilitation. He is aware that he may have to be inpatient for couple days to allow for more physical therapy visits before being accepted. He is aware of this and okay with the weight. He was started today on aspirin for DVT prophylaxis. His dressings will remain in place today and can be changed tomorrow. Will continue to follow him. Anticipated discharge once accepted to assisted facility. Subjective . William was seen this morning resting comfortably in no apparent distress. He notes that his pain is well-controlled to his left knee. He has been up and out of bed with no significant issues. He has yet to work physical therapy this morning. He denies any concerns with surgical incision site. Denies any active bleeding, discharge, or signs of infection. He denies any other concerns today. Review of Systems All systems reviewed & are unremarkable except as noted in HPI & below. Physical Exam . On physical examination of the left knee, dressings are clean, dry, in place no signs of active bleeding, discharge, or signs of infection. His leg is out in full extension. He has limited range of motion secondary to postoperative stiffness soreness. Calf soft nontender to palpation. Negative Homans' sign. Intact plantarflexion dorsiflexion of left ankle. +2 DP and PT pulses. Less than 2-second capillary refill. Normal sensation. Neurovascular intact. Results & Data Results & Data Laboratory Results . Diagnostic Findings . Knee X-Ray 06/19/24 13:14 XR knee LT 1 or 2V routine CLINICAL HISTORY: Postoperative evaluation. COMPARISON: Left knee radiographs November 08, 2022. FINDINGS: Alignment of the total left knee arthroplasty is anatomic. There is no periprosthetic fracture or unexpected radiopaque foreign body. There are skin sky. IMPRESSION: Expected findings following total left knee arthroplasty. ACT 112: Negative or not required by law. Electronically signed by: Bryant Lisa M.D. 06/19/2024 1:28 PM PG Care Time/CCT Total # of Minutes Spent Total Time Spent with Patient: Total time spent is greater than 50% in coordination of care (as documented) at patient's floor/unit and/or counseling patient: Coding Level of Care Code 70085 Post Operative Follow-Up Diagnoses Status post left knee replacement Z96.652
[2024-06-20 10:13] LABS: Hematocrit (blood only) 33.7 % (42.0-52.0); Hemoglobin 11.3 g/dl (14.0-18.0); Mean Corpuscular Hemoglobin 32.8 pg (25.0-34.0); Mean Corpuscular Hgb Conc 33.5 g/dL (32.0-36.0); Mean Corpuscular Volume 97.7 fL (80.0-100.0); Mean Platelet Volume 12.8 fL (9.4-12.4); Platelet Count 67 K/uL (130-400); RDW Coefficient of Variation 13.4 % (11.5-14.5); RDW Standard Deviation 47.5 fL (36.4-46.3); Red Blood Count 3.45 M/uL (4.70-6.10); White Blood Count 7.34 K/ul (4.8-10.8)
[2024-06-20 10:59] LABS: BUN Creatinine Ratio 26.7 (10-20); Calcium 8.1 mg/dl (8.6-10.3); Creatinine Clr Calc Pharmacy 30.9 ml/min; Potassium 4.1 mmol/L (3.5-5.1)
--- NOTE | 2024-06-20 11:43 | Pharmacy Report ---
Pharmacy Glycemic Short Note 2 - Date of Service June 20, 2024 - Glycemic Short BSG Results (Last 24 hours): 06/19/24 06/19/24 06/19/24 13:14 16:14 20:40 Glucose POC Glucose 127 H 151 H 115 H 06/20/24 06/20/24 06/20/24 07:31 09:48 11:29 Glucose 144 H POC Glucose 100 H 122 H OUTPATIENT ANTIDIABETIC REGIMEN: * Lantus 15 units SC HS * Fiasp SSI (Goal BSG < 180 mg/dL; CF 18; CR 13) HbA1c: * 7.3% (06/04/24) ASSESSMENT: 06/20/24: * Blood sugars well-controlled postoperatively w/ fasting blood glucose of 100 mg/dL this morning * No steroids ordered * Will loosen Novolog today and decrease basal insulin in light of lower fasting blood glucose (100 mg/dL vs. 161 mg/dL on day prior) 06/19/24: * 89 yo M admitted on 06/19/24 postoperatively following a left total knee arthroplasty. Pharmacy has been consulted to assist with inpatient glycemic management. Patient is a Type 2 diabetic as an outpatient. Please refer to outpatient regimen and most recent HbA1c above. * Preop BSG was 161 mg/dL while postop BSG was 127 mg/dL. Did take normal basal dose last evening prior to admission. No steroids received perioperatively. Ordered a T2DM diet, will follow to see if patient tolerates this evening. * Basal will be ordered with a 33% reduction in home dosing. Novolog to start based on weight/stress of 2-3. Goal range of 110-140 mg/dL will be targeted with ultimate goal of keeping postop BSGs less than 180 mg/dL. PLAN FOR INPATIENT GLYCEMIC CONTROL: * Basal insulin * Lantus 0-5 units SC HS * Bolus insulin * NovoLog per scale ACHS or Q6hrs while NPO * Goal Range: Low 110 mg/dL - High 140 mg/dL * Correction Factor: 35 mg/dL/unit * Nutritional / Prandial insulin per carb ratio of 1 unit per 12 grams CHO consumed
[2024-06-20] MEDS: ACETAMINOPHEN 500 MG TAB PO PRN (12:35)
[2024-06-20] MEDS: LANTUS PER UNIT CHARGE SQ SCH (20:29)
[2024-06-21] MEDS: HYDROmorphone INJ 0.5 MG/0.5 ML SYR IV PRN (00:59)
[2024-06-21] MEDS: ONDANSETRON INJ 2 MG/ML 2 ML VIAL IV PRN (01:05)
--- NOTE | 2024-06-21 07:31 | Orthopedic Progress Note ---
Date of Service June 21, 2024 Assessment & Plan (1) Status post left knee replacement: Plan: 89-year-old gentleman with multiple medical comorbidities now postop day 2 from a left knee replacement. He is doing pretty well. Pain seems to be improved today. He is waiting to go to rehab. Plan: 1. DVT prophylaxis including thigh-high teds, SCDs, and aspirin twice a day. 2. PT/OT. Weight-bear as tolerated. Left total hip protocol. 3. Pain control. Doing better with current pain regimen. 4. Disposition. Plan is to discharge to [facility] once bed available and insurance approved. Continue medical management. Admission and Anticipated Discharge Date Admission Date: June 19, 2024 Subjective 89-year-old gentleman with multiple medical comorbidities now postop day 2 from a left knee replacement. He is doing better this morning. The muscle spasms and muscle tightness seem to be better. No chest pain or shortness of breath. Not feeling dizzy or lightheaded. Physical Exam Physical Exam: Physical examination was a pleasant elderly male. I had to wake him this morning. Examination of the left leg reveals the dressing to be clean dry and intact. Leg is well aligned. Can dorsiflex and plantarflex his foot appropriately. He can do a straight leg raise with some effort.
[2024-06-21] MEDS: LANTUS PER UNIT CHARGE SQ ONE (12:18)
[2024-06-21] MEDS: LANTUS PER UNIT CHARGE SQ SCH (21:26)
[2024-06-22 07:40] VITALS: BP 116/57; PULSE 63; RESP 20; TEMP 97.7; O2SAT 95
[2024-06-22] MEDS: MAGNESIUM HYDROXIDE SUSP 30 ML UDC PO PRN (08:24)
--- NOTE | 2024-06-22 11:12 | Orthopedic Progress Note ---
Date of Service June 22, 2024 Assessment & Plan (1) Status post left knee replacement: Plan: 89-year-old gentleman postop day 3 from a left total knee replacement. He is doing quite well. Got multiple medical comorbidities which all seem to be under control. He is neurologically intact. Just waiting for placement. Plan: 1. DVT prophylaxis including thigh-high teds, SCDs, aspirin twice a day. 2. PT/OT. Weight-bear as tolerated. Left total knee protocol. 3. Pain control. Doing well with current pain regimen. 4. Disposition. The plan is to discharge to [facility] [place] today. Admission and Anticipated Discharge Date Admission Date: June 19, 2024 Subjective 89-year-old gentleman postop day 3 from a left left total knee replacement. He is doing pretty well. Pain seems to be getting better. He is just waiting for placement. He is hoping to go to [facility] [place] today. No chest pain or shortness of breath. Not feeling dizzy or lightheaded. Physical Exam Physical Exam: Physical exam shows a pleasant elderly male. He sitting up in his bedside chair looks comfortable. Examination left leg reveals the dressing be clean dry and intact. Fairly minimal swelling he can dorsiflex and plantarflex his foot appropriately. He is neurologically intact. Results & Data Vital Signs (Past 12 Hours) Vital Signs Temp Pulse Resp BP Pulse Ox O2 Del Method 06/22/24 07:39 36.5 C 63 20 116/57 L 95 Room Air
--- NOTE | 2024-06-26 15:38 | Discharge Summary ---
Date of Service June 26, 2024 Principal Diagnosis Same as "Discharge Diagnosis" noted below under Discharge Instructions. Discharge Exam . On physical examination of the left knee, dressings are clean, dry, in place no signs of active bleeding, discharge, or signs of infection. His leg is out in full extension. He has limited range of motion secondary to postoperative stiffness soreness. Calf soft nontender to palpation. Negative Homans' sign. Intact plantarflexion dorsiflexion of left ankle. +2 DP and PT pulses. Less than 2-second capillary refill. Normal sensation. Neurovascular intact. Discharge Data Procedures Performed Operation Date: 06/19/24 10:40 Actual Procedures p Left Total Knee Arthroplasty(Left) - Ramone Rogers MD Ordered Studies 06/19/24 05:00 US - OR guided needle placemen Routine Hospital Course (1) Status post left knee replacement: This is a 89 year old patient admitted on 06/19/24 and underwent total knee arthroplasty. He tolerated the procedure well and there were no complications. Transferred to the PACU post op and later to the orthopedic floor for further care. He was given ancef for antibiotic prophylaxis. He was also given BASILIO stockings, SCDs, and aspirin for DVT prophylaxis. Hemoglobin, hematocrit, and vital signs were monitored during his hospital stay and remained stable. Did not require any blood transfusions. There were no complications during his hospital stay. By post op day #3 the patient was tolerating a diabetic diet, pain was reasonably controlled with oral pain medicine, and he was participating in physical therapy. On post op day #3 the patient was discharged to a rehab facility. He was given printed discharge instructions including prescriptions for extra strength tylenol, aspirin, senokot, and oxycodone. Continue physical therapy, weight bearing as tolerated. Continue BASILIO stockings. Follow up approximately 2 weeks post op or sooner if there are problems or concerns. PG Care Time/CCT Total # of Minutes Spent Total Time Spent with Patient: Total time spent is greater than 50% in coordination of care (as documented) at patient's floor/unit and/or counseling patient: Discharge Plan Discharge Items Patient Disposition: Transfer Senior Living Fac Reason For Visit: Left Knee Osteoarthritis Discharge Diagnosis: Left Knee Replacement Activity: Per Instructions section Weightbearing: Full weightbearing Non-emergency contact: Surgeon Call non-emergency contact if: you have any medication questions Follow-up/Referrals: Laila Morfin MD [Primary Care Provider] - LuisAnkit lrener [facility] [Non-Staff] - Diet: Carb Consistent or DM2 Addtl Attending Provider Instructions: ACTIVITY RECOMMENDATIONS: Diet: * You may resume previous diet. Physical Therapy: * You will go to physical therapy three times each week for four to six weeks after your surgery in order to regain your knee range of motion and to retrain your knee to work properly. * It is just as important to make sure you are getting your knee perfectly straight as it is to regain your knee bend. * Taking a pain pill an hour before therapy can help you have a more productive and comfortable therapy session. Home Exercise: * You were shown a series of exercises (heel props, heel slides, etc.) in the hospital. Do these exercises three to four times each day including the exercises you were shown in physical therapy. Walking: * Get up and walk several times each day. For the first four weeks, try not to stand or walk for more than one hour at a time. If you do stand or walk for more than one hour, you will not hurt anything, but your knee and leg will likely swell. * As you feel comfortable, you may change from the walker or crutches to a cane and then to independent walking. MEDICATIONS: New Medicine: * You will likely be taking one or more of these medications: 1. Oxycodone - A quick and shorter-acting pain medication. Take one to two tablets every six hours to lessen your pain. 2. Aspirin - Thins your blood to lessen the chance of forming a blood clot. * The most common side effects of pain medicine and iron are nausea and constipation. If nausea or constipation is too much of a problem or if you have any questions about your new medicines or doses, call [facility] at . We will try to help you manage these issues. "VERY IMPORTANT TO READ AND REVIEW" Pain: * The immediate post-operative period after knee replacement surgery is often quite painful. * You are given a prescription for pain medicine. You should take it, as directed, when you need it, especially before physical therapy and before going to bed. Pain that interferes with sleep is very common and can last several months. * You will likely need pain medicine for the first four to six weeks. It will not stop all of the pain. The pain will lessen and as you feel better, you may change to milder pain medicine such as Tylenol. * The most common side effects of pain medicine are nausea and constipation, so don't take more than you need. SPECIAL CARE INSTRUCTIONS: TEDs/Elastic Stockings: * The white elastic stockings help limit swelling and prevent blood clots from forming in your legs. The more you wear them, the more they work. * Wear them for six weeks after knee replacement surgery and four weeks after partial knee replacement. Incision Site Care: * Remove dressing postoperative day 2 and then shower. Keep direct shower pressure off the incision site. * After showering, cover sky with dry gauze and change daily or more frequently if the dressing is getting saturated with drainage. * Use the BASILIO stockings to hold dressing in place. DO NOT apply tape on the skin. * May completely stop using bandage if wound is dry and no drainage * Sky are removed between 2 and 3 weeks post-op. If your follow-up appointment is made before 2 weeks, please have your appointment re- scheduled. It is too early to remove the sky. Prevention of Infection: * Take antibiotics one hour before any dental cleaning, dental work, urological procedure, gastrointestinal procedure or any invasive surgery in order to prevent your new joint from getting infected. * You may get the antibiotics from the doctor performing the procedure or you may call our office at [phone] before and we will call in a prescription to the pharmacy of your choice. Things to Watch For: * Drainage from the incision site that occurs more than one week after your surgery. * Severely increased knee/leg pain or swelling. * Increased redness at the incision site. * Fever above 102 degrees Fahrenheit. * Unusual chest pain or shortness of breath. * Unusual pain or burning with urination. Call [facility] at [phone] with any of the above problems or if you have any questions about your medicines or recovery. FOLLOW UP VISIT: Make an appointment to see your doctor for approximately two weeks after surgery for a progress check and staple removal by calling the office at [phone]. Pending Studies at Discharge: No Stand-Alone Forms: My [facility] Skilled Items Patient informed of condition?: Yes DNR: No Discharge Level of Care: Skilled Communicable Disease: No Discharge Prognosis: Improving Lines: None Urinary Catheter: No Medications and DC Order Prescriptions: New aspirin 81 mg Tablet,Delayed Release (Dr/Ec) 81 mg PO BID 45 Days Qty: 90 0RF Rx Instructions: Take to prevent blood clots. sennosides [Senokot] 8.6 mg Tablet 17.2 mg PO HS 7 Days Qty: 14 0RF Rx Instructions: Take to prevent constipations. Continued (DME) blood glucose control, normal [OneTouch Verio Mid Control] Solution See Rx Instructions .Route Qty: 1 1RF Rx Instructions: use glucometer to calibrate Dexcom (DME) needle (disp) 18 G [BD Regular Bevel [place]] 18 gauge x 1" needle See Rx Instructions .ROUTE .MEDSUPPLY Qty: 50 0RF Rx Instructions: use once weekly with testosterone (DME) OneTouch Verio test strips Strip See Rx Instructions .ROUTE .MEDSUPPLY Qty: 100 3RF Rx Instructions: Test blood sugar once daily cyanocobalamin (vitamin B-12) 1,000 mcg capsule 2,000 mcg PO QAM Hold Instructions: SURGERY (DME) BD SafetyGlide Needle 25 gauge x 5/8" needle See Rx Instructions .Route Qty: 50 0RF Rx Instructions: use 1 weekly to give testosterone (DME) syringe (disposable) [BD Luer-Yee Syringe] 3 mL syringe See Rx Instructions .Route Qty: 100 0RF Rx Instructions: use 1 weekly for testosterone injections (DME) BD SafetyGlide Syringe 3 mL 25 x 5/8" syringe See Rx Instructions .Route Qty: 12 3RF Rx Instructions: Use one per week to inject testosterone (DME) BD Veo Insulin Syr (half unit) 0.3 mL 31 gauge x 15/64" syringe See Rx Instructions .ROUTE .MEDSUPPLY Qty: 600 3RF Rx Instructions: for use with insulin 6 times per day. [id number] 1/2 ml divisions Fiasp U-100 Insulin 100 unit/mL solution See Rx Instructions subcut DAILY MDD 24 units Qty: 30 3RF Rx Instructions: Inject prior to each meal and before bedtime; per sliding scale Creon 36,000-114,000- 180,000 unit capsule,delayed release(DR/EC) 2 cap PO UD Qty: 240 1RF Rx Instructions: TAKE 2 CAPSULES WITH MEALS AND 1 CAPSULE WITH SNACK DIRECTED fluticasone propionate 50 mcg/actuation spray,suspension 1 spray intranasal BID Rx Instructions: USE ONE SPRAY NASALLY TWICE A DAY (DME) Dexcom G7 Sensor Device See Rx Instructions .Route Rx Instructions: Change sensor every 10 days prednisolone acetate 1 % drops,suspension 1 drops OP Q2D ketorolac 0.5 % drops 1 drops OPB QAM biotin 5,000 mcg Tablet,Disintegrating 5,000 mcg PO QAM calcitriol 0.25 mcg capsule 0.25 mcg PO QAM escitalopram oxalate 20 mg tablet 20 mg PO QAM potassium chloride 20 mEq tablet extended release 40 meq PO QAM No Action insulin glargine [Lantus U-100 Insulin] 100 unit/mL solution 15 unit SQ HS Qty: 20 3RF amoxicillin 500 mg tablet 2,000 mg PO ONCE PRN (Reason: prior to dental procedure) Rx Instructions: 4 tabs 1 hour prior to Dentist chlorthalidone 25 mg Tablet 25 mg PO DAILY acetaminophen 500 mg capsule 1,000 mg PO Q8H PRN (Reason: PAIN,MILD) diclofenac sodium 1 % gel 4 g topical Q6 PRN (Reason: JOINT PAIN) acetaminophen 325 mg Tablet 650 mg PO Q4 PRN (Reason: Fever Or Pain) Rx Instructions: FOR TEMP=>100 ALL PAIN PreserVision AREDS 2,148 mcg-113 mg-45 mg-17.4mg Tablet 1 tab PO DAILY magnesium oxide 400 mg magnesium Tablet 400 mg PO DAILY oxycodone 5 mg Tablet 10 mg PO Q6H PRN (Reason: .SEVERE PAIN) olmesartan 20 mg Tablet 10 mg PO DAILY oxycodone 5 mg tablet 5 mg PO Q6H PRN (Reason: .MODERATE PAIN) Discharge Orders: Discharge Order (Routine); Ordered 06/22/24 Ordered By: Ramone Rogers Admission Data Admit Date/Time: 06/19/24 13:14 Attending Provider: Ramone Rogers Admit Provider: Ramone Rogers Primary Care Provider: Laila Morfin V. Other Providers: Ankit Ball [facility] Other Interventions: Discharge Summary Assessment (RN) Last Done: 06/22/24 11:12
== END 2024-06-22 11:42 | DRG 470 ==
LOC: ASU 08:42 → 3W 13:14 → INTOOBSV 13:14
DX: E78.00 Pure hypercholesterolemia, unspecified; N18.9 Chronic kidney disease, unspecified; Z87.891 Personal history of nicotine dependence; D69.6 Thrombocytopenia, unspecified; I12.9 Hypertensive chronic kidney disease with stage 1 through stage 4 chronic kidney disease, or unspecified chronic kidney disease; Z96.651 Presence of right artificial knee joint; K21.9 Gastro-esophageal reflux disease without esophagitis; Z85.46 Personal history of malignant neoplasm of prostate; M65.88 Other synovitis and tenosynovitis, other site; M17.12 Unilateral primary osteoarthritis, left knee; Z92.3 Personal history of irradiation; E11.22 Type 2 diabetes mellitus with diabetic chronic kidney disease; E11.40 Type 2 diabetes mellitus with diabetic neuropathy, unspecified

== ENCOUNTER 2024-06-23 21:58 | Observation (INO) ==
--- NOTE | 2024-06-23 23:01 | Emergency Department Note ---
Impression & Plan Episode of confusion, Thrombocytopenia, Acute dehydration, AROLDO (acute kidney injury) ED Provider Note Name: KIKE BENTLEY Age: 89 Sex: Male Arrives Via: Ambulance Informant: Patient (Initially poor historian), EMS, nursing ED Provider: Greg Heath MD Chief Complaint: Confusion Impression: As per impressions above Medical Decision Making: Pleasant 89-year-old gentleman arrives for evaluation of confusion several days post left knee replacement. Patient is a bit tremulous, confused and dehydrated appearing on arrival. Left knee swollen mildly erythematous though not clearly or convincingly infected by examination. Laboratory workup obtained including septic workup. Fortunately laboratory workup is relatively unremarkable other than a mild AROLDO That is consistent with his examination. Laboratory workup itself is not really alignment with infectious pathology at this time. However given his initial examination I will concerned there is something growing. Fortunately his confusion and tremulous improved with IV fluids and some IV Tylenol. CT of the head was obtained it is fortunate unremarkable. Chest x-ray and other labs are unremarkable as well. Given his initial presentation I do feel that hospitalization is indicated. Hospitalist consulted for further management. Triage/Nursing Notes reviewed by Me External Chart Review by me: I reviewed the discharge summary from orthopedic progress note from 06/22/24 reviewed by me Differential:Dehydration, Anemia, ICH, Viral syndrome, otitis, pharyngitis, pneumonia, influenza, meningitis, urinary tract infection, sepsis, bacteremia, as well as other pathologies. Vital Signs: reviewed and remarkable for mildly low BP for patient's history Interventions: 1 L normal saline bolus IV, acetaminophen 1 g IV Labs:ED labs Reviewed by me and remarkable for mildly elevated creatinine from baseline. Imagin view chest x-ray as per my interpretation no infiltrate or effusion appreciated. CT of the head without contrast as per my informal to rotation reveals no intracranial hemorrhage or mass effect. Confirmed by radiologist. EKG:As per my interpretation. Indication weakness. Normal sinus rhythm at 61 bpm with a QTc of 434. There is a left bundle branch block. There is no ectopy nor ischemia appreciated. When compared to April 25, 2023 EKG there is no significant change. Cardiac/Tele Monitoring: Cardiac Monitoring: An Order was placed for continuous cardiac monitoring. The monitor shows a rate of 60 with a normal sinus rhythm. Consults:Dr De La Rosa of the [place] Hospitalist service consulted for further management of patient Plan: Disposition:Hospitalization. Condition: Good History of Present Illness: 89-year-old gentleman arrives for evaluation of confusion. Patient with worsening confusion over the last 1 to 2 days. Patient denies any symptoms. He is somewhat confused and thus story is a bit difficult to obtain. Per EMS patient living at [facility] for rehab post knee surgery a few days ago. Worsening confusion. No falls, trauma, injuries reported. No reported fevers. Patient had an Oxy IR around 11 AM. Past Medical History:See Below Home Medications:See Below Allergies:See Below Vitals:Blood Pressure: 106/56, Pulse 66, RR 12, T 37.1C, O2 95% on RA Physical Exam: GENERAL: Patient is ill/septic appearing and in minimal distress. Dry mucous membranes RESPIRATORY: No dyspnea. Clear to auscultation and equal bilaterally. CARDIOVASCULAR: Regular rate and rhythm.No murmur appreciated. GASTROINTESTINAL: Abdomen soft, non-tender, no peritonitis. EXTREMITIES: Left knee sp replacement with intact staple line. There is some increased warmth and erythema throughout anterior knee with erythema spreading medially along inner posterior though, which overlays with dependent ecchymosis. Edema distal foot with pulses intact. Otherwise normal motion all extremities, no cyanosis, no edema. NEUROLOGIC: Awake, he is somewhat confused with episodic non-sensical speech pattern. No focal neurologic deficits appreciated SKIN: No rash, no jaundice, no diaphoresis. PSYCH: Appropriate GCS: 15 ED Course: Times/Reassessments: Patient is vastly improved with fluids and some IV Tylenol. He is in no distress. He is comfortable plan for hospitalization. 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) Depression (Acute) Hypercholesterolemia (Acute) Hypertension (Acute) Nontoxic multinodular goiter (Acute) Polyarthritis (Acute) Raynaud's disease without gangrene (Acute) Sensorineural hearing loss of both ears (Acute) Vitamin D deficiency (Acute) Medical History History of constipation History of thrombocytopenia History of anemia Chronic kidney disease History of depression DM type 2 (diabetes mellitus, type 2) Chronic fatigue Exocrine pancreatic insufficiency History of obstructive sleep apnea Hypercholesterolemia History of prostate cancer Interstitial lung disease 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 Osteoporosis Raynaud's disease without gangrene Undifferentiated connective tissue disease Neuropathy History of pressure ulcer Spinal stenosis Hearing deficit Macular degeneration Anxiety HTN (hypertension) Loose body of left knee Arthritis of knee, left Edema Surgical History History of surgery (~2012) History of total right knee replacement Hx of blepharoplasty History of colonoscopy Status post lung surgery H/O umbilical hernia repair History of cataract surgery History of thoracentesis History of prostatectomy History of prostate biopsy Family History Brother Cancer Mother Cancer Other Breast cancer No family history of adverse response to anesthesia Denies family history of Ovarian cancer Prostate cancer Myocardial infarction Colorectal cancer Social History Smoking Status: Former smoker Tobacco Type: Cigars Age Started Using Tobacco: 21; Age Quit Using Tobacco: 25; packs per day: 1; Second Hand Exposure: Yes (hx); Do You Dip or Chew Tobacco: No; Hx Alcohol Use: Yes Alcohol type: wine Alcohol Intake Frequency: 4 or More x per/Week Alcohol Intake Frequency Comment: 1 glass of wine daily Hx Substance Use: No Preferred Language: British Communication Ability: Effective Visual Impairment: No Limitations Hearing Ability: Use of Hearing Aid Wood Pole Treater Required: No Beliefs That Will Affect Care: None marital status: / Current Living Situation: Alone Current Living Situation Comment: plans to go to rehab facility follow d/c from hospital current occupational status: retired How many Children do You have: 2 How many Children do You have Comment: 1 Feels Safe at Home: Yes Childhood Exposure to Second-Hand Smoke: No Diet: low salt Diet Comment: well balanced diet. caffeine: No (12 cups of coffee daily. ) Dental Care, Regularly: Yes Physical Activity Frequency: 3-4 Times per Week Physical Activity Frequency Comment: walking, goes to the gym twice weekly for weight lifting, hunts. Seatbelt Use: always Sunscreen Use: Yes Assistive Devices: Cane and Walker Allergies Allergies Allergy/AdvReac Type Severity Reaction Status Date / Time prednisone Allergy Intermediate hyperglycem Verified 06/19/24 08:50 ia pregabalin [From Lyrica] Allergy Unknown Unknown Verified 06/19/24 08:50 Beta-Blockers AdvReac Intermediate Depression Verified 06/19/24 08:50 (Beta-Adrenergic Bloc diphenhydramine AdvReac Intermediate hyperactive Verified 06/19/24 08:50 [From Benadryl Allergy] spironolactone AdvReac Intermediate gynecomasti Verified 06/19/24 08:50 a testosterone AdvReac Intermediate gynecomasti Verified 06/19/24 08:50 a Home Meds Home Medications Medication Instructions Recorded Confirmed ketorolac 0.5 % eye drops 1 drops OPB QAM 12/05/18 06/23/24 prednisolone acetate 1 % eye 1 drops ophthalmic (eye) Q2D 12/05/18 06/23/24 drops,suspension fluticasone propionate 50 1 spray intranasal BID 01/27/21 06/23/24 mcg/actuation nasal spray,suspension blood-glucose sensor (Dexcom G7 12/05/23 06/13/24 Sensor device) cyanocobalamin (vitamin B-12) 2,000 mcg PO QAM 12/05/23 06/23/24 1,000 mcg capsule biotin 5,000 mcg disintegrating 5,000 mcg PO QAM 03/27/24 06/23/24 tablet calcitriol 0.25 mcg capsule 0.25 mcg PO QAM 03/27/24 06/23/24 escitalopram oxalate 20 mg tablet 20 mg PO QAM 03/27/24 06/23/24 potassium chloride 20 mEq 40 meq PO QAM 03/27/24 06/23/24 tablet,extended release acetaminophen 325 mg tablet 650 mg PO Q4 PRN Fever Or Pain 06/23/24 06/23/24 acetaminophen 500 mg capsule 1,000 mg PO Q8H PRN PAIN,MILD 06/23/24 06/23/24 amoxicillin 500 mg tablet 2,000 mg PO ONCE PRN prior to 06/23/24 06/23/24 dental procedure chlorthalidone 25 mg tablet 25 mg PO DAILY 06/23/24 06/23/24 diclofenac sodium 1 % topical gel 4 g topical Q6 PRN JOINT PAIN 06/23/24 06/23/24 magnesium oxide 400 mg PO DAILY 06/23/24 06/23/24 olmesartan 20 mg tablet 10 mg PO DAILY 06/23/24 06/23/24 oxycodone 5 mg tablet 5 mg PO Q6H PRN .MODERATE PAIN 06/23/24 06/23/24 oxycodone 5 mg tablet 10 mg PO Q6H PRN .SEVERE PAIN 06/23/24 06/23/24 vitamins A,C,E-lhxy-kkmvzd 2,148 1 tab PO DAILY 06/23/24 06/23/24 mcg-113 mg-45 mg-17.4 mg tablet (PreserVision AREDS) Previous Rx's Medication Instructions Recorded blood glucose control, normal #1 ea 02/21/23 (OneTouch Verio Mid Control solution) needle (disp) 18 G 18 gauge x 1" #50 ea 09/20/23 (BD Regular Bevel [place]) blood sugar diagnostic (OneTouch #100 ea 10/18/23 Verio test strips) safety needles 25 gauge x 5/8" (BD #50 ea 12/21/23 SafetyGlide Needle) syringe (disposable) 3 mL (BD #100 ea 12/21/23 Luer-Yee Syringe) syringe with needle 3 mL 25 x 5/8" #12 ea 01/19/24 (BD SafetyGlide Syringe) BD Veo Insulin Syr (half unit) 0.3 #600 ea 02/20/24 mL 31 gauge x 15/64" (insulin syr/ndl U100 half edilma) insulin aspart (niacinamide) See Rx Instructions subcut DAILY 04/20/24 (U-100) 100 unit/mL subcutaneous #30 mL solution (Fiasp U-100 Insulin) aspirin 81 mg tablet,delayed 81 mg PO BID 45 days #90 tabs 06/19/24 release sennosides 8.6 mg tablet (Senokot) 17.2 mg (2 x 8.6 mg) PO HS 7 days 06/19/24 #14 tabs bnknby-[id number]-yvcizjy 2 cap PO UD #240 caps 06/21/24 36,000-114,000-180,000 unit capsule,delay rel (Creon) Lantus U-100 Insulin 100 unit/mL 15 unit (0.15 mL) subcut HS #20 mL 06/22/24 subcutaneous solution (insulin glargine) Results & Data (ED) Vital Signs Vital Signs - 24 hr 06/23/24 21:58 06/23/24 21:58 06/23/24 22:04 Temperature 37.1 C Temperature Source Oral Pulse Rate 82 66 Respiratory Rate 12 Respiratory Effort / Characteristics Non-Labored Spontaneous Respiratory Depth Normal Respiratory Pattern Regular Blood Pressure 106/56 L Blood Pressure Mean 72 Pulse Oximetry 95 95 Oxygen Delivery Method Room Air Room Air Sepsis Recent Fever Within 48 Hours No Sepsis New/Unexplained Change in Mental Status Yes Sepsis Action Taken by Nursing No Action Required 06/23/24 22:57 06/23/24 22:58 06/23/24 23:00 Temperature 37.0 C Temperature Source Oral Pulse Rate 61 Respiratory Rate 16 Respiratory Effort / Characteristics Respiratory Depth Respiratory Pattern Blood Pressure 132/58 L Blood Pressure Mean 82 Pulse Oximetry 93 94 Oxygen Delivery Method Room Air Room Air Sepsis Recent Fever Within 48 Hours Sepsis New/Unexplained Change in Mental Status Sepsis Action Taken by Nursing 06/23/24 23:15 06/23/24 23:30 06/23/24 23:45 Temperature Temperature Source Pulse Rate 59 L 60 58 L Respiratory Rate 15 18 14 Respiratory Effort / Characteristics Respiratory Depth Respiratory Pattern Blood Pressure 117/53 L 127/61 130/57 L Blood Pressure Mean 74 83 81 Pulse Oximetry 94 95 92 Oxygen Delivery Method Room Air Room Air Room Air Sepsis Recent Fever Within 48 Hours Sepsis New/Unexplained Change in Mental Status Sepsis Action Taken by Nursing 06/24/24 00:00 06/24/24 00:15 06/24/24 00:45 Temperature Temperature Source Pulse Rate 64 59 L 60 Respiratory Rate 19 19 16 Respiratory Effort / Characteristics Respiratory Depth Respiratory Pattern Blood Pressure 143/58 H 122/60 127/60 Blood Pressure Mean 69 84 91 Pulse Oximetry 91 94 94 Oxygen Delivery Method Room Air Room Air Room Air Sepsis Recent Fever Within 48 Hours Sepsis New/Unexplained Change in Mental Status Sepsis Action Taken by Nursing 06/24/24 01:00 06/24/24 01:15 06/24/24 01:30 Temperature Temperature Source Pulse Rate 60 61 61 Respiratory Rate 15 15 16 Respiratory Effort / Characteristics Respiratory Depth Respiratory Pattern Blood Pressure 137/61 123/60 128/60 Blood Pressure Mean 90 81 96 Pulse Oximetry 96 93 94 Oxygen Delivery Method Room Air Room Air Room Air Sepsis Recent Fever Within 48 Hours Sepsis New/Unexplained Change in Mental Status Sepsis Action Taken by Nursing 06/24/24 01:45 06/24/24 02:00 Temperature Temperature Source Pulse Rate 54 L 66 Respiratory Rate 17 16 Respiratory Effort / Characteristics Respiratory Depth Respiratory Pattern Blood Pressure 128/71 144/65 H Blood Pressure Mean 90 91 Pulse Oximetry Oxygen Delivery Method Sepsis Recent Fever Within 48 Hours Sepsis New/Unexplained Change in Mental Status Sepsis Action Taken by Nursing Laboratory Data 06/23/24 22:45 06/23/24 22:45 Lab Results 06/23/24 06/23/24 06/23/24 Range/Units 22:45 23:10 23:14 WBC 6.67 (4.8-10.8) K/ul RBC 2.85 L (4.70-6.10) M/uL Hgb 9.3 L (14.0-18.0) g/dl Hct 27.9 L (42.0-52.0) % MCV 97.9 (80.0-100.0) fL MCH 32.6 (25.0-34.0) pg MCHC 33.3 (32.0-36.0) g/dL RDW Std Deviation 46.9 H (36.4-46.3) fL RDW Coeff of Bina 13.2 (11.5-14.5) % Plt Count 81 L (130-400) K/uL MPV 12.1 (9.4-12.4) fL Immature Gran % (Auto) 0.4 % Neut % (Auto) 77.2 % Lymph % (Auto) 9.6 % [place] % (Auto) 10.9 % Eos % (Auto) 1.6 % Baso % (Auto) 0.3 % Neut # (Auto) 5.14 (1.40-6.50) K/uL Lymph # (Auto) 0.64 L (1.20-3.40) K/uL [place] # (Auto) 0.73 H (0.11-0.59) K/uL Eos # (Auto) 0.11 (0.00-0.50) K/uL Baso # (Auto) 0.02 (0.00-0.20) K/uL Immature Gran # (Auto) 0.03 (0.01-0.20) K/uL VBG pH (7.36-7.41) VBG pCO2 (38-50) mmHg VBG pO2 mmHg VBG HCO3 mmol/L VBG O2 Saturation % VBG Base Excess mEq/L Sodium 138 (136-145) mmol/L Potassium 4.3 (3.5-5.1) mmol/L Chloride 102 (98-107) mmol/L Carbon Dioxide 31 (21-32) mmol/L Anion Gap 5 (3-11) BUN 56 H (6-23) mg/dl Creatinine 1.90 H (0.6-1.4) mg/dl Est Cr Clr Drug Dosing 31.4 ml/min eGFR 33.51 BUN/Creatinine Ratio 29.5 H (10-20) Glucose 120 H (70-99(Fasting)) mg/dl Lactate 1.3 (0.4-2.0) mmol/L Calcium 8.2 L (8.6-10.3) mg/dl Magnesium 2.4 (1.7-2.4) mg/dl Total Bilirubin 0.7 (0.2-1.0) mg/dl Direct Bilirubin 0.1 (0-0.2) mg/dl AST 27 (13-39) U/L ALT 10 (7-52) U/L Alkaline Phosphatase 31 L (34-104) U/L Troponin I High Sens 11.0 (0-20) pg/ml Total Protein 6.0 (6.0-8.3) gm/dl Albumin 3.4 (3.4-5.0) gm/dl Procalcitonin 0.19 (0-0.5) ng/ml Urine Color Urine Appearance (Clear) Urine pH (4.5-7.5) Ur Specific Topmost (1.000-1.030) Urine Protein (Negative) Urine Glucose (UA) (Negative) Urine Ketones (Negative) Urine Blood (Negative) Urine Nitrite (Negative) Urine Bilirubin (Negative) Urine Urobilinogen (Negative) Ur Leukocyte Esterase (Negative) SARS-CoV-2 (PCR) NEGATIVE (Negative) Influenza Type A (PCR) Negative (Neg) Influenza Type B (PCR) Negative (Neg) RSV (RT-PCR) Negative (Neg) 06/23/24 06/24/24 Range/Units 23:30 00:02 WBC (4.8-10.8) K/ul RBC (4.70-6.10) M/uL Hgb (14.0-18.0) g/dl Hct (42.0-52.0) % MCV (80.0-100.0) fL MCH (25.0-34.0) pg MCHC (32.0-36.0) g/dL RDW Std Deviation (36.4-46.3) fL RDW Coeff of Bina (11.5-14.5) % Plt Count (130-400) K/uL MPV (9.4-12.4) fL Immature Gran % (Auto) % Neut % (Auto) % Lymph % (Auto) % [place] % (Auto) % Eos % (Auto) % Baso % (Auto) % Neut # (Auto) (1.40-6.50) K/uL Lymph # (Auto) (1.20-3.40) K/uL [place] # (Auto) (0.11-0.59) K/uL Eos # (Auto) (0.00-0.50) K/uL Baso # (Auto) (0.00-0.20) K/uL Immature Gran # (Auto) (0.01-0.20) K/uL VBG pH 7.36 (7.36-7.41) VBG pCO2 46 (38-50) mmHg VBG pO2 24 mmHg VBG HCO3 26 mmol/L VBG O2 Saturation < 60.0 % VBG Base Excess 0.1 mEq/L Sodium (136-145) mmol/L Potassium (3.5-5.1) mmol/L Chloride (98-107) mmol/L Carbon Dioxide (21-32) mmol/L Anion Gap (3-11) BUN (6-23) mg/dl Creatinine (0.6-1.4) mg/dl Est Cr Clr Drug Dosing ml/min eGFR BUN/Creatinine Ratio (10-20) Glucose (70-99(Fasting)) mg/dl Lactate (0.4-2.0) mmol/L Calcium (8.6-10.3) mg/dl Magnesium (1.7-2.4) mg/dl Total Bilirubin (0.2-1.0) mg/dl Direct Bilirubin (0-0.2) mg/dl AST (13-39) U/L ALT (7-52) U/L Alkaline Phosphatase (34-104) U/L Troponin I High Sens (0-20) pg/ml Total Protein (6.0-8.3) gm/dl Albumin (3.4-5.0) gm/dl Procalcitonin (0-0.5) ng/ml Urine Color Dark Yellow Urine Appearance Clear (Clear) Urine pH 5.0 (4.5-7.5) Ur Specific [place] 1.018 (1.000-1.030) Urine Protein Negative (Negative) Urine Glucose (UA) 1+ H (Negative) Urine Ketones Trace H (Negative) Urine Blood Negative (Negative) Urine Nitrite Negative (Negative) Urine Bilirubin Negative (Negative) Urine Urobilinogen Negative (Negative) Ur Leukocyte Esterase Negative (Negative) SARS-CoV-2 (PCR) (Negative) Influenza Type A (PCR) (Neg) Influenza Type B (PCR) (Neg) RSV (RT-PCR) (Neg) Administered Medications Discontinued Medications Sodium Chloride (Nss) 1,000 mls @ 999 mls/hr IV .Q1H1M JEN Stop: 06/24/24 00:00 Last Infusion: 06/24/24 00:25 Dose: Infused Documented By: Admin: 06/23/24 23:17 Dose: 999 mls/hr Documented By: PIETER Acetaminophen (Ofirmev) 1,000 mg in 100 mls @ 400 mls/hr IV NOW STA Stop: 06/23/24 23:11 Last Infusion: 06/23/24 23:47 Dose: Infused Documented By: Admin: 06/23/24 23:18 Dose: 400 mls/hr Documented By: PIETER Imaging Data Radiologist's Impression: Head CT 06/24/24 00:12 EXAM: CT head/brain wo con CLINICAL HISTORY: confusion. TECHNIQUE: Axial non-contrast CT scan of the brain was performed from the skull base to the high parietal region. One of the following dose reduction techniques were utilized for this exam: Automated exposure control, adjustment of the mA and/or kV according to patient size, use of iterative reconstruction. COMPARISON: None. FINDINGS: Brain Parenchyma: Mild diffuse hypodensity is identified in the periventricular deep white matter. Few tiny low attenuation areas are identified in bilateral basal ganglia and periventricular region. Normal attenuation of the cerebellum, and brainstem. No evidence of acute infarct, hemorrhage, or mass effect. Ventricular System: Mildly prominent ventricular system seen. No evidence of hydrocephalus. Subarachnoid Spaces: Mild to moderate widening of sulci are identified. No evidence of subarachnoid hemorrhage or extra-axial fluid collections. Cerebellum and Brainstem: Normal size and density. No masses, lesions, or areas of abnormal density. Orbits: Normal appearance of the globes, optic nerves, and extraocular muscles. No evidence of orbital masses or abnormal density. Sinuses: No evidence of sinusitis Mild S-shaped deviation of nasal septum is identified, with small bilateral spur. Mild gap is identified in nasal septum as per image: 4(4/32), axial , this may be nonspecific or related to prior surgery. Mastoid Air Cells: Minimal opacification of right mastoid air cells. No evidence of mastoiditis on left side. Skull: Normal skull morphology. IMPRESSION: 1. No evidence of intracranial hemorrhage, gross territorial infarction or mass-effect. In view of patient's history of confusion, MRI brain is suggested for further evaluation. 2. Few tiny low attenuation areas in bilateral basal ganglia and periventricular region, likely microvascular ischemic changes. 3. Age-appropriate volume loss in brain parenchyma and mild periventricular deep white matter ischemic changes. 4. Minimal opacification of right mastoid air cells raising the possibility of mastoiditis. Electronically signed by Otf Jaquez 06-24-2024 01:53 AM Discharge Plan Visit Data Chief Complaint: Confusion Stated Complaint: Increased Confusion Post OP ED Provider: Greg Heath Discharge Problem: Episode of confusion, Thrombocytopenia, Acute dehydration, AROLDO (acute kidney injury) Forms Stand Alone Forms: My [facility] [place] Prescriptions Prescriptions: No Action (DME) blood glucose control, normal [OneTouch Verio Mid Control] Solution See Rx Instructions .Route Qty: 1 1RF Rx Instructions: use glucometer to calibrate Dexcom (DME) needle (disp) 18 G [BD Regular Bevel [place]] 18 gauge x 1" needle See Rx Instructions .ROUTE .MEDSUPPLY Qty: 50 0RF Rx Instructions: use once weekly with testosterone (DME) OneTouch Verio test strips Strip See Rx Instructions .ROUTE .MEDSUPPLY Qty: 100 3RF Rx Instructions: Test blood sugar once daily cyanocobalamin (vitamin B-12) 1,000 mcg capsule 2,000 mcg PO QAM Hold Instructions: SURGERY (DME) BD SafetyGlide Needle 25 gauge x 5/8" needle See Rx Instructions .Route Qty: 50 0RF Rx Instructions: use 1 weekly to give testosterone (DME) syringe (disposable) [BD Luer-Yee Syringe] 3 mL syringe See Rx Instructions .Route Qty: 100 0RF Rx Instructions: use 1 weekly for testosterone injections (DME) BD SafetyGlide Syringe 3 mL 25 x 5/8" syringe See Rx Instructions .Route Qty: 12 3RF Rx Instructions: Use one per week to inject testosterone (DME) BD Veo Insulin Syr (half unit) 0.3 mL 31 gauge x 15/64" syringe See Rx Instructions .ROUTE .MEDSUPPLY Qty: 600 3RF Rx Instructions: for use with insulin 6 times per day. [id number] 1/2 ml divisions Fiasp U-100 Insulin 100 unit/mL solution See Rx Instructions subcut DAILY MDD 24 units Qty: 30 3RF Rx Instructions: Inject prior to each meal and before bedtime; per sliding scale Creon 36,000-114,000- 180,000 unit capsule,delayed release(DR/EC) 2 cap PO UD Qty: 240 1RF Rx Instructions: TAKE 2 CAPSULES WITH MEALS AND 1 CAPSULE WITH SNACK DIRECTED insulin glargine [Lantus U-100 Insulin] 100 unit/mL solution 15 unit SQ HS Qty: 20 3RF fluticasone propionate 50 mcg/actuation spray,suspension 1 spray intranasal BID Rx Instructions: USE ONE SPRAY NASALLY TWICE A DAY (DME) Dexcom G7 Sensor Device See Rx Instructions .Route Rx Instructions: Change sensor every 10 days prednisolone acetate 1 % drops,suspension 1 drops OP Q2D ketorolac 0.5 % drops 1 drops OPB QAM biotin 5,000 mcg Tablet,Disintegrating 5,000 mcg PO QAM calcitriol 0.25 mcg capsule 0.25 mcg PO QAM escitalopram oxalate 20 mg tablet 20 mg PO QAM potassium chloride 20 mEq tablet extended release 40 meq PO QAM aspirin 81 mg Tablet,Delayed Release (Dr/Ec) 81 mg PO BID 45 Days Qty: 90 0RF Rx Instructions: Take to prevent blood clots. sennosides [Senokot] 8.6 mg Tablet 17.2 mg PO HS 7 Days Qty: 14 0RF Rx Instructions: Take to prevent constipations. amoxicillin 500 mg tablet 2,000 mg PO ONCE PRN (Reason: prior to dental procedure) Rx Instructions: 4 tabs 1 hour prior to Dentist chlorthalidone 25 mg Tablet 25 mg PO DAILY acetaminophen 500 mg capsule 1,000 mg PO Q8H PRN (Reason: PAIN,MILD) diclofenac sodium 1 % gel 4 g topical Q6 PRN (Reason: JOINT PAIN) acetaminophen 325 mg Tablet 650 mg PO Q4 PRN (Reason: Fever Or Pain) Rx Instructions: FOR TEMP=>100 ALL PAIN PreserVision AREDS 2,148 mcg-113 mg-45 mg-17.4mg Tablet 1 tab PO DAILY magnesium oxide 400 mg magnesium Tablet 400 mg PO DAILY oxycodone 5 mg Tablet 10 mg PO Q6H PRN (Reason: .SEVERE PAIN) olmesartan 20 mg Tablet 10 mg PO DAILY oxycodone 5 mg tablet 5 mg PO Q6H PRN (Reason: .MODERATE PAIN) Referrals Referrals: Laila Morfin MD [Primary Care Provider] -
[2024-06-23] MEDS: SODIUM CHLORIDE 0.9% 1,000 ML IV SCH (23:17)
[2024-06-23] MEDS: ACETAMINOPHEN 1,000 MG/100 ML VIAL IV STA (23:18)
[2024-06-23 23:32] LABS: Albumin Level 3.4 gm/dl (3.4-5.0); BUN Creatinine Ratio 29.5 (10-20); Bilirubin Direct 0.1 mg/dl (0-0.2); Bilirubin,Total 0.7 mg/dl (0.2-1.0); Calcium 8.2 mg/dl (8.6-10.3); Creatinine Clr Calc Pharmacy 31.4 ml/min; Magnesium 2.4 mg/dl (1.7-2.4); Potassium 4.3 mmol/L (3.5-5.1)
[2024-06-23 23:39] LABS: Basophils # (auto) 0.02 K/uL (0.00-0.20); Basophils % (auto) 0.3 %; Eosinophils # (auto) 0.11 K/uL (0.00-0.50); Eosinophils % (auto) 1.6 %; Hematocrit (blood only) 27.9 % (42.0-52.0); Hemoglobin 9.3 g/dl (14.0-18.0); Immature Granulocytes # (auto) 0.03 K/uL (0.01-0.20); Immature Granulocytes % (auto) 0.4 %; Lymphocytes # (auto) 0.64 K/uL (1.20-3.40); Lymphocytes % (auto) 9.6 %; Mean Corpuscular Hemoglobin 32.6 pg (25.0-34.0); Mean Corpuscular Hgb Conc 33.3 g/dL (32.0-36.0); Mean Corpuscular Volume 97.9 fL (80.0-100.0); Mean Platelet Volume 12.1 fL (9.4-12.4); Monocytes # (auto) 0.73 K/uL (0.11-0.59); Monocytes % (auto) 10.9 %; Neutrophils # (auto) 5.14 K/uL (1.40-6.50); Neutrophils % (auto) 77.2 %; Platelet Count 81 K/uL (130-400); RDW Coefficient of Variation 13.2 % (11.5-14.5); RDW Standard Deviation 46.9 fL (36.4-46.3); Red Blood Count 2.85 M/uL (4.70-6.10); White Blood Count 6.67 K/ul (4.8-10.8)
[2024-06-23 23:46] LABS: Appearance Urine Clear (Clear); Bilirubin Urine Negative (Negative); Blood Urine Negative (Negative); Color Urine Dark Yellow; Glucose Urine UA 1+ (Negative); Ketones Urine Trace (Negative); Leukocyte Esterase Urine Negative (Negative); Nitrite Urine Negative (Negative); Protein Urine Negative (Negative); Specific Gravity Urine 1.018 (1.000-1.030); Urobilinogen Urine Negative (Negative)
[2024-06-24 00:18] LABS: Base Excess VBG 0.1 mEq/L; HCO3 VBG 26 mmol/L; Oxygen Saturation VBG < 60.0 %; PCO2 VBG 46 mmHg (38-50); PO2 VBG 24 mmHg; pH VBG 7.36 (7.36-7.41)
[2024-06-24 00:18] LABS: Influenza A virus by PCR Negative (Neg); Influenza B virus by PCR Negative (Neg); RSV by PCR Negative (Neg); SARS CoV2 RNA(COVID-19) Ceph NEGATIVE (Negative)
--- NOTE | 2024-06-24 01:22 | History & Physical Report ---
Date of Service June 24, 2024 Assessment & Plan (1) Status post left knee replacement: (2) DM type 2 (diabetes mellitus, type 2): (3) AROLDO (acute kidney injury): (4) Acute dehydration: (5) Thrombocytopenia: (6) Episode of confusion: (7) Left leg swelling: Plan 89 year old male presents to the ER from [facility] with recent knee replacement due to daughter concern for confusion and patient concern for his left knee pain # Left knee swelling with ecchymosis Appears to be post operative changes although possible increased amount of ecchymosis secondary to thrombocytopenia while on aspirin. XR Knee US venous doppler ordered to rule out DVT. Will place aspirin on hold currently and consult orthopedics to re-evaluate the knee Consider discussing alternative VTE prophyalxis with hematology given thrombocytopenia #Altered mental state Reportedly improved following acetaminophen and IV fluids in the ER. Suspect multifactorial with BUN increased an may have been contributing along with opiates taken and constipation #Acute kidney injury Cr 1.9, baseline 1.29 NSS 1L bolus given in ER, will repeat level in AM, will hold chlorthalidone pending repeat level #Constipation Continue Senna Add 119g PO MiraLAX #T2DM HbA1C 7.3 in May, no need to repeat Continue Lantus 15 units HS Novolog: --Correction Factor: 35 mg/dL/unit --Carbohydrate ratio = 12 g/unit --BSGs ACHS if eating, q6h if npo Consult pharmacy for ongoing glycemic control #HTN Holding chlorthalidone as above Continue losartan VTE prophylaxis - deferred given significant ecchymosis Diet - T2DM Disposition - observation to med/surg Admission and Anticipated Discharge Date Admission Date: June 24, 2024 History of Present Illness Chief Complaint: Left knee swelling and pain Confusion Primary Care Provider: Laila Morfin MD William Jiménez is an 89 year old male who presents to the ER from [facility] due to concern for confusion from a family member and left knee swelling and pain. He was recently admitted From June 19 - 2024 for left total knee arthroplasty. He was discharged to [facility] for rehabilitation. He reports taking oxycodone before talking to his daughter and he is sure that this made him more confused over the phone. He currently feels mostly back to his baseline. He notes only have one small bowel movement following his surgery and feels constipated. He is also concerned about the size and swelling of his left leg as this didn't happen with his right knee replacements. He has chronic thrombocytopenia with TET2 mutation. Placed on aspirin post operatively for VTE Prophylaxis. With the swelling he has been having significant right calf pain. Allergies Allergy/AdvReac Type Severity Reaction Status Date / Time prednisone Allergy Intermediate hyperglycem Verified 06/19/24 08:50 ia pregabalin [From Lyrica] Allergy Unknown Unknown Verified 06/19/24 08:50 Beta-Blockers AdvReac Intermediate Depression Verified 06/19/24 08:50 (Beta-Adrenergic Bloc diphenhydramine AdvReac Intermediate hyperactive Verified 06/19/24 08:50 [From Benadryl Allergy] spironolactone AdvReac Intermediate gynecomasti Verified 06/19/24 08:50 a testosterone AdvReac Intermediate gynecomasti Verified 06/19/24 08:50 a Home Medications Medication Instructions Recorded Confirmed Type ketorolac 0.5 % eye drops 1 drops OPB QAM 12/05/18 06/23/24 History prednisolone acetate 1 % eye 1 drops ophthalmic (eye) Q2D 12/05/18 06/23/24 History drops,suspension fluticasone propionate 50 1 spray intranasal BID 01/27/21 06/23/24 History mcg/actuation nasal spray,suspension blood glucose control, normal #1 ea 02/21/23 06/13/24 Rx (OneTouch Verio Mid Control solution) needle (disp) 18 G 18 gauge x 1" #50 ea 09/20/23 06/13/24 Rx (BD Regular Bevel Wilmot) blood sugar diagnostic (OneTouch #100 ea 10/18/23 06/13/24 Rx Verio test strips) blood-glucose sensor (Dexcom G7 12/05/23 06/13/24 History Sensor device) cyanocobalamin (vitamin B-12) 2,000 mcg PO QAM 12/05/23 06/23/24 History 1,000 mcg capsule safety needles 25 gauge x 5/8" (BD #50 ea 12/21/23 06/13/24 Rx SafetyGlide Needle) syringe (disposable) 3 mL (BD #100 ea 12/21/23 06/13/24 Rx Luer-Yee Syringe) syringe with needle 3 mL 25 x 5/8" #12 ea 01/19/24 06/13/24 Rx (BD SafetyGlide Syringe) BD Veo Insulin Syr (half unit) 0.3 #600 ea 02/20/24 06/13/24 Rx mL 31 gauge x 15/64" (insulin syr/ndl U100 half edilma) biotin 5,000 mcg disintegrating 5,000 mcg PO QAM 03/27/24 06/23/24 History tablet calcitriol 0.25 mcg capsule 0.25 mcg PO QAM 03/27/24 06/23/24 History escitalopram oxalate 20 mg tablet 20 mg PO QAM 03/27/24 06/23/24 History potassium chloride 20 mEq 40 meq PO QAM 03/27/24 06/23/24 History tablet,extended release insulin aspart (niacinamide) See Rx Instructions subcut DAILY 04/20/24 06/23/24 Rx (U-100) 100 unit/mL subcutaneous #30 mL solution (Fiasp U-100 Insulin) aspirin 81 mg tablet,delayed 81 mg PO BID 45 days #90 tabs 06/19/24 06/23/24 Rx release sennosides 8.6 mg tablet (Senokot) 17.2 mg (2 x 8.6 mg) PO HS 7 days 06/19/24 06/23/24 Rx #14 tabs vixehf-xkagkspm-eqnsfzc 2 cap PO UD #240 caps 06/21/24 06/23/24 Rx 36,000-114,000-180,000 unit capsule,delay rel (Creon) Lantus U-100 Insulin 100 unit/mL 15 unit (0.15 mL) subcut HS #20 mL 06/22/24 06/23/24 Rx subcutaneous solution (insulin glargine) acetaminophen 325 mg tablet 650 mg PO Q4 PRN Fever Or Pain 06/23/24 06/23/24 History acetaminophen 500 mg capsule 1,000 mg PO Q8H PRN PAIN,MILD 06/23/24 06/23/24 History amoxicillin 500 mg tablet 2,000 mg PO ONCE PRN prior to 06/23/24 06/23/24 History dental procedure chlorthalidone 25 mg tablet 25 mg PO DAILY 06/23/24 06/23/24 History diclofenac sodium 1 % topical gel 4 g topical Q6 PRN JOINT PAIN 06/23/24 06/23/24 History magnesium oxide 400 mg PO DAILY 06/23/24 06/23/24 History olmesartan 20 mg tablet 10 mg PO DAILY 06/23/24 06/23/24 History oxycodone 5 mg tablet 5 mg PO Q6H PRN .MODERATE PAIN 06/23/24 06/23/24 History oxycodone 5 mg tablet 10 mg PO Q6H PRN .SEVERE PAIN 06/23/24 06/23/24 History vitamins A,C,Y-aloh-kgfhwy 2,148 1 tab PO DAILY 06/23/24 06/23/24 History mcg-113 mg-45 mg-17.4 mg tablet (PreserVision AREDS) Past Med/Surg History Problem List (Updated 06/24/24 @ 03:57 by Otilio De La Rosa MD) Left leg swelling AROLDO (acute kidney injury) (Acute) Acute dehydration (Acute) Thrombocytopenia (Acute) Episode of confusion (Acute) Status post left knee replacement Chronic pain of lower extremity, bilateral Lumbosacral spondylosis LBBB (left bundle branch block) Pancreatic insufficiency Thrombocytopenia Anemia Idiopathic polyneuropathy Trochanteric bursitis, right hip Statin myopathy Interstitial lung disease DM type 2 (diabetes mellitus, type 2) Degenerative arthritis of knee, bilateral Primary hypogonadism in male (Chronic) Depression (Acute) Hypercholesterolemia (Acute) Hypertension (Acute) Nontoxic multinodular goiter (Acute) Polyarthritis (Acute) Raynaud's disease without gangrene (Acute) Sensorineural hearing loss of both ears (Acute) Vitamin D deficiency (Acute) Medical History History of constipation History of thrombocytopenia History of anemia Chronic kidney disease History of depression DM type 2 (diabetes mellitus, type 2) Chronic fatigue Exocrine pancreatic insufficiency History of obstructive sleep apnea Hypercholesterolemia History of prostate cancer Interstitial lung disease 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 Osteoporosis Raynaud's disease without gangrene Undifferentiated connective tissue disease Neuropathy History of pressure ulcer Spinal stenosis Hearing deficit Macular degeneration Anxiety HTN (hypertension) Loose body of left knee Arthritis of knee, left Edema Surgical History History of surgery (~2012) History of total right knee replacement Hx of blepharoplasty History of colonoscopy Status post lung surgery H/O umbilical hernia repair History of cataract surgery History of thoracentesis History of prostatectomy History of prostate biopsy Family History Brother Cancer Mother Cancer Other Breast cancer No family history of adverse response to anesthesia Denies family history of Ovarian cancer Prostate cancer Myocardial infarction Colorectal cancer Social History Smoking Status: Former smoker Tobacco Type: Cigarettes Age Started Using Tobacco: 21; Age Quit Using Tobacco: 25; packs per day: 1; Smoking End Date: 60 years ago for 2 years only.; Second Hand Exposure: Yes (History of exposure.); Do You Dip or Chew Tobacco: No; Tobacco Cessation Education Requested by Patient: No Hx Alcohol Use: Yes Alcohol type: wine Alcohol Intake Frequency: 4 or More x per/Week Alcohol Intake Frequency Comment: 1 glass of wine daily Hx Substance Use: No Preferred Language: Cambodian Communication Ability: Effective Visual Impairment: No Limitations Hearing Ability: Use of Hearing Aid Field Handyman Required: No Beliefs That Will Affect Care: None marital status: / Current Living Situation: Other Current Living Situation Comment: [facility]. current occupational status: retired How many Children do You have: 2 How many Children do You have Comment: 1 Other Information That Helps Us Care for You: No Feels Safe at Home: Yes Safety Concerns: Feels Safe At This Time Childhood Exposure to Second-Hand Smoke: No Diet: low salt Diet Comment: well balanced diet. caffeine: No (12 cups of coffee daily. ) Dental Care, Regularly: Yes Physical Activity Frequency: 3-4 Times per Week Physical Activity Frequency Comment: walking, goes to the gym twice weekly for weight lifting, hunts. Seatbelt Use: always Sunscreen Use: Yes Assistive Devices: Glasses, Hearing Aid - Bilateral, Hospital Bed and Walker Review of Systems Review of Systems: All systems reviewed & are unremarkable except as noted in HPI & below Physical Exam Constitutional: WD/WN, vitals as above ENMT: external ear and nose normal, oropharynx normal Respiratory: normal respiratory effort, lungs clear to auscultation Cardiovascular: RRR, no murmur, no edema Gastrointestinal (Abdomen): normal bowel sounds, soft, nontender, no hepatosplenomegaly Musculoskeletal: Right calf pain Right knee effusion with ecchymosis on medial side extending up medial thigh. Pitting edema b/l 2+ on right, 1+ left (under BASILIO hose) Alecia and surgical wound appears C/D/I with mild erythema around bottom part of wound but without overt cellulitis Neurologic: moves all extremities and awake; not confused Psychiatric: A+Ox3, euthymic affect Results & Data Results & Data Vital Signs (Past 12 Hours) Vital Signs Temp Pulse Resp BP Pulse Ox O2 Del Method 06/24/24 00:45 60 16 127/60 94 Room Air 06/24/24 00:15 59 L 19 122/60 94 Room Air 06/24/24 00:00 64 19 143/58 H 91 Room Air 06/23/24 23:45 58 L 14 130/57 L 92 Room Air 06/23/24 23:30 60 18 127/61 95 Room Air 06/23/24 23:15 59 L 15 117/53 L 94 Room Air 06/23/24 23:00 61 16 132/58 L 94 Room Air 06/23/24 22:58 37.0 C 06/23/24 22:57 93 Room Air 06/23/24 22:04 66 06/23/24 21:58 95 Room Air 06/23/24 21:58 37.1 C 82 12 106/56 L 95 Room Air Laboratory Results Abnormal lab results 06/23/24 06/23/24 Range/Units 22:45 23:30 RBC 2.85 L (4.70-6.10) M/uL Hgb 9.3 L (14.0-18.0) g/dl Hct 27.9 L (42.0-52.0) % RDW Std Deviation 46.9 H (36.4-46.3) fL Plt Count 81 L (130-400) K/uL Lymph # (Auto) 0.64 L (1.20-3.40) K/uL [place] # (Auto) 0.73 H (0.11-0.59) K/uL BUN 56 H (6-23) mg/dl Creatinine 1.90 H (0.6-1.4) mg/dl BUN/Creatinine Ratio 29.5 H (10-20) Glucose 120 H (70-99(Fasting)) mg/dl Calcium 8.2 L (8.6-10.3) mg/dl Alkaline Phosphatase 31 L (34-104) U/L Urine Glucose (UA) 1+ H (Negative) Urine Ketones Trace H (Negative) Diagnostic Findings CXR official read pending but no acute abnormalities seen on my interpretation Medications Administered ER Medications Given: 1L normal saline bolus Acetaminophen 1000 mg IV ECG Rate (beats per minute): 61 Rhythm: normal sinus Findings: + LBBB and + left axis deviation Comparison ECG Date: from (Apr 25, 2023) Change: no significant change Code Status & VTE Plan Code Status Full VTE Prophylaxis Plan VTE Prophylaxis will be ordered: No PG Care Time/CCT Total # of Minutes Spent Total Time Spent with Patient: Total time spent is greater than 50% in coordination of care (as documented) at patient's floor/unit and/or counseling patient: Coding Level of Care Code 89995 INT INP/OBS CARE 3/75MIN Diagnoses Status post left knee replacement Z96.652 DM type 2 (diabetes mellitus, type 2) E11.9 AROLDO (acute kidney injury) N17.9 Acute dehydration E86.0 Thrombocytopenia D69.6 Episode of confusion R41.0 Left leg swelling M79.89
--- NOTE | 2024-06-24 01:54 | CT Scan Report ---
EXAM: CT head/brain wo con CLINICAL HISTORY: confusion. TECHNIQUE: Axial non-contrast CT scan of the brain was performed from the skull base to the high parietal region. One of the following dose reduction techniques were utilized for this exam: Automated exposure control, adjustment of the mA and/or kV according to patient size, use of iterative reconstruction. COMPARISON: None. FINDINGS: Brain Parenchyma: Mild diffuse hypodensity is identified in the periventricular deep white matter. Few tiny low attenuation areas are identified in bilateral basal ganglia and periventricular region. Normal attenuation of the cerebellum, and brainstem. No evidence of acute infarct, hemorrhage, or mass effect. Ventricular System: Mildly prominent ventricular system seen. No evidence of hydrocephalus. Subarachnoid Spaces: Mild to moderate widening of sulci are identified. No evidence of subarachnoid hemorrhage or extra-axial fluid collections. Cerebellum and Brainstem: Normal size and density. No masses, lesions, or areas of abnormal density. Orbits: Normal appearance of the globes, optic nerves, and extraocular muscles. No evidence of orbital masses or abnormal density. Sinuses: No evidence of sinusitis Mild S-shaped deviation of nasal septum is identified, with small bilateral spur. Mild gap is identified in nasal septum as per image: 4(4/32), axial , this may be nonspecific or related to prior surgery. Mastoid Air Cells: Minimal opacification of right mastoid air cells. No evidence of mastoiditis on left side. Skull: Normal skull morphology. IMPRESSION: 1. No evidence of intracranial hemorrhage, gross territorial infarction or mass-effect. In view of patient's history of confusion, MRI brain is suggested for further evaluation. 2. Few tiny low attenuation areas in bilateral basal ganglia and periventricular region, likely microvascular ischemic changes. 3. Age-appropriate volume loss in brain parenchyma and mild periventricular deep white matter ischemic changes. 4. Minimal opacification of right mastoid air cells raising the possibility of mastoiditis. Electronically signed by Otf Jaquez 06-24-2024 01:53 AM
--- NOTE | 2024-06-24 03:01 | XRay Report ---
Exam(s): XR CXR 1 VIEW EXAM: XR Chest, 1 View CLINICAL HISTORY: Reason for exam: Sepsis. TECHNIQUE: Frontal view of the chest. COMPARISON: Prior chest x-ray from April 03, 2024. FINDINGS: Lungs: Mild to moderate peribronchial thickening of the central lower lobe bronchi.. No consolidation. Pleural space: Unremarkable. No pneumothorax. Heart: Unremarkable. No cardiomegaly. Mediastinum: Unremarkable. Normal mediastinal contour. Bones/joints: Unremarkable. No acute fracture. IMPRESSION: Bronchitis, which may be of infectious or inflammatory etiologies. No consolidation or pleural effusion. Electronically signed by: Natasha Nieves MD 06/24/24 03:00 AM
[2024-06-24] MEDS ORDERED: PHARMACY GLYCEMIC MGMT CONSULT PRN (03:29)
[2024-06-24] MEDS ORDERED: GLUCAGON FOR INJ 1 MG VIAL SQ PRN (03:29)
[2024-06-24] MEDS ORDERED: DEXTROSE 50% 50 ML SYRINGE IV PRN (03:29)
[2024-06-24] MEDS ORDERED: GLUCOSE 40% GEL 15 GM TUBE PO PRN (03:29)
[2024-06-24] MEDS ORDERED: GLUCOSE 10 TAB/TUBE PO PRN (03:29)
--- NOTE | 2024-06-24 03:33 | XRay Report ---
EXAM: XR knee LT 1 or 2V routine CLINICAL HISTORY: left knee swelling s/p TKR. TECHNIQUE: X-ray images of the left knee were obtained in AP and lateral projections. COMPARISON: 06/19/2024 CR. FINDINGS: Bone Structure: Total knee replacement is noted. The alignment cannot be assessed properly on the frontal/oblique view. However, there is a preserved alignment on the lateral view. No acute displaced fracture or dislocation. Joint Spaces: Joint spaces are preserved. Articular Surfaces: Residual small osteophytes are noted at the proximal posterior tibia. Patella: Patella is normal in position and alignment. No evidence of patellar dislocation or subluxation. Patellar bony spurs are noted. Soft Tissues: Postsurgical changes of the knee with diffuse soft tissue swelling. Obliteration of the Hoffa's fat pad with multiple small air locules. Calcification at the posterior aspect of the knee joint could represent vascular calcification versus detached osteophytes. IMPRESSION: 1. Left total knee replacement with postsurgical changes. No evidence of prosthetic fracture or loosening. 2. No evidence of acute displaced fracture or dislocation. 3. There has been no significant interval change since the previous study apart from a decrease of the soft tissue emphysema and apparent mild increased soft tissue swelling. Disclaimer: A subtle bone abnormality or fracture may not be readily apparent on X-rays, thus clinical correlation and further imaging including follow-up CT, MRI, or follow-up X-rays are advised as needed. Electronically signed by Otf Jaquez 06-24-2024 03:33 AM
--- NOTE | 2024-06-24 03:44 | Ultrasound Report ---
EXAM: US venous doppler LE CLINICAL HISTORY: Left leg swelling, calf pain r/o DVT TECHNIQUE: Ultrasound examination of left lower extremity veins was performed in real time and duplex. One or more of the following were performed: spectral analysis, resistive index, waveform analysis, and pulsed Doppler. COMPARISON: None. FINDINGS: Normal phasic, non-pulsatile and spontaneous flow is noted in left greater saphenous, common femoral, superficial femoral, popliteal, anterior and posterior tibial and peroneal veins. Visualized veins of left lower extremity demonstrate normal compressibility. No sonographic evidence of acute deep vein thrombosis (DVT) is detected in the visualized veins of lower extremity. Compression and Augmentation: All evaluated veins compress fully with applied transducer pressure. Augmentation of venous flow is noted with distal compression. Additional Findings: No evidence of intraluminal thrombus. Mild soft tissue edema seen IMPRESSION: 1. No sonographic evidence of acute DVT detected at the time of examination. 2. Mild soft tissue edema seen Disclaimer: DVT could be missed early in the disease when clot burden is minimal. For patients with moderate and high pretest probability of DVT and negative ultrasound, the [employer] clinical guidelines recommend testing with a D-dimer assay or repeat ultrasound in 5-7 days. If symptoms worsen, the Society of radiologists in ultrasound recommends repeating ultrasound even earlier. Electronically signed by Otf Jaquez 06-24-2024 03:33 AM
[2024-06-24] MEDS ORDERED: PANCREAZE (LIPASE 10,500U) CAP PO PRN (03:54)
[2024-06-24 04:24] LABS: Hematocrit (blood only) 25.2 % (42.0-52.0); Hemoglobin 8.5 g/dl (14.0-18.0); Mean Corpuscular Hemoglobin 32.9 pg (25.0-34.0); Mean Corpuscular Hgb Conc 33.7 g/dL (32.0-36.0); Mean Corpuscular Volume 97.7 fL (80.0-100.0); Mean Platelet Volume 12.5 fL (9.4-12.4); Platelet Count 81 K/uL (130-400); RDW Coefficient of Variation 13.2 % (11.5-14.5); Red Blood Count 2.58 M/uL (4.70-6.10); White Blood Count 6.33 K/ul (4.8-10.8)
[2024-06-24 04:37] LABS: BUN Creatinine Ratio 32.1 (10-20); Calcium 7.6 mg/dl (8.6-10.3); Creatinine Clr Calc Pharmacy 35.5 ml/min
[2024-06-24] MEDS: POLYETHYLENE (MIRALAX) 17 GM PACK PO ONE ×2 (06:35→09:47)
[2024-06-24] MEDS: ACETAMINOPHEN 500 MG TAB PO PRN (07:39)
[2024-06-24] MEDS: prednisoLONE acetate 1% OP SUSP 5 ML BTL OP SCH (07:42)
[2024-06-24] MEDS: FLUTICASONE PROPIONATE NA SPR 16 GM BTL NAE SCH (07:42)
[2024-06-24] MEDS: KETOROLAC 0.5% OP SOLN 5 ML BTL OPB SCH (07:42)
[2024-06-24] MEDS: CHLORTHALIDONE 25 MG TAB PO SCH (07:43)
[2024-06-24] MEDS: LOSARTAN POTASSIUM 25 MG TAB PO SCH (07:43)
[2024-06-24] MEDS: MAGNESIUM OXIDE 400 MG TAB PO SCH (07:43)
[2024-06-24] MEDS: ESCITALOPRAM OXALATE 20 MG TAB PO SCH (07:44)
[2024-06-24] MEDS: PANCREAZE (LIPASE 10,500U) CAP PO SCH (07:44)
[2024-06-24] MEDS: CALCITRIOL 0.25 MCG CAPSULE PO SCH (07:44)
[2024-06-24] MEDS ORDERED: POLYETHYLENE (MIRALAX) 17 GM PACK PO PRN (09:07)
--- NOTE | 2024-06-24 09:32 | Hospitalist Progress Note ---
Date of Service June 24, 2024 Assessment & Plan (1) Status post left knee replacement: (2) DM type 2 (diabetes mellitus, type 2): (3) AROLDO (acute kidney injury): (4) Acute dehydration: (5) Thrombocytopenia: (6) Episode of confusion: (7) Left leg swelling: (8) Acute encephalopathy: Plan 89 year old male presents to the ER from [facility] rehabilitation with recent knee replacement due to daughter concern for confusion and patient concern for his left knee pain #Acute toxic and metabolic encephalopathy - presentation with acute delirium. Combination of recent surgery/hospitalization, opioids, dehydration -improved after IV fluids but not totally back to baseline -work on pain control with less opioids: schedule acetaminophen, hold oxycodone, try tramadol -increased bowel regimen for constipation -chlorthalidone held # Left knee swelling with ecchymosis. Postop from L TKA by Dr. Rogers 06/19 Appears to be post operative changes although possible increased amount of ecchymosis secondary to thrombocytopenia while on aspirin. XR Knee unremarkable - no fracture or malalignment. LE duplex neg for DVT Chronic thrombocytopenia - agree alternative DVT ppx that is not an antiplatelet may be better than ASA. Consider low dose apixaban Consulted ortho #Acute kidney injury on CKD-3 Cr 1.9--> 1.6 after IVF, baseline 1.3-1.5 continue ARB, hold chlorthalidone #Constipation Continue Senna, miralax. 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 chronic diarrhea #T2DM HbA1C 7.3 in May, no need to repeat Continue Lantus 15 units HS Novolog: --Correction Factor: 35 mg/dL/unit --Carbohydrate ratio = 12 g/unit --BSGs ACHS if eating, q6h if npo Consult pharmacy for ongoing glycemic control #HTN Holding chlorthalidone as above Continue losartan VTE prophylaxis - see above May be able to return to [facility] tomorrow or tuesday I updated his daughter and son-in-law in the room today Admission and Anticipated Discharge Date Admission Date: June 24, 2024 Subjective mentally clearer today but not at baseline per his family at the bedside L knee pain has been severe He says he was taking 10 mg oxycodone twice a day at [facility] Having feeling of muscle spasm in left leg madina hamstrings No other focal symptoms Yesterday was overtly confused at [facility], wandered off to another unit without a walker, for example. talking on phone with his family and confused, conversation not apropos Physical Exam 2 Physical Exam: LLE wwp, more edematous than right, L TKA incision well opposed no erythema or drainage, no warmth. L>RLE 1-2+ edema. LLE DP and PT pulses intact AOx4 but a bit confused, perseverative and tangential which isnt normal - usually normal cognition. Not overtly confused, no agitation. Has good recall of his meds, slight confusion about his distant medical history. Results & Data Results & Data Vital Signs (Past 12 Hours) Vital Signs Temp Pulse Pulse Resp BP BP Pulse Ox 06/24/24 07:57 36.7 C 55 L 16 120/58 L 93 06/24/24 03:35 06/24/24 03:35 36.6 C 59 L 18 143/71 H 93 06/24/24 03:35 06/24/24 03:35 36.6 C 59 L 18 143/71 H 93 06/24/24 02:30 53 L 15 120/62 95 06/24/24 02:00 66 16 144/65 H 06/24/24 01:45 54 L 17 128/71 06/24/24 01:30 61 16 128/60 94 06/24/24 01:15 61 15 123/60 93 06/24/24 01:00 60 15 137/61 96 06/24/24 00:45 60 16 127/60 94 06/24/24 00:15 59 L 19 122/60 94 06/24/24 00:00 64 19 143/58 H 91 06/23/24 23:45 58 L 14 130/57 L 92 06/23/24 23:30 60 18 127/61 95 06/23/24 23:15 59 L 15 117/53 L 94 06/23/24 23:00 61 16 132/58 L 94 06/23/24 22:58 37.0 C 06/23/24 22:57 93 06/23/24 22:04 66 06/23/24 21:58 95 06/23/24 21:58 37.1 C 82 12 106/56 L 95 O2 Del Method 06/24/24 07:57 Room Air 06/24/24 03:35 Room Air 06/24/24 03:35 Room Air 06/24/24 03:35 Room Air 06/24/24 03:35 Room Air 06/24/24 02:30 Room Air 06/24/24 02:00 06/24/24 01:45 06/24/24 01:30 Room Air 06/24/24 01:15 Room Air 06/24/24 01:00 Room Air 06/24/24 00:45 Room Air 06/24/24 00:15 Room Air 06/24/24 00:00 Room Air 06/23/24 23:45 Room Air 06/23/24 23:30 Room Air 06/23/24 23:15 Room Air 06/23/24 23:00 Room Air 06/23/24 22:58 06/23/24 22:57 Room Air 06/23/24 22:04 06/23/24 21:58 Room Air 06/23/24 21:58 Room Air Laboratory Results 06/24/24 03:40 06/24/24 03:40 PG Care Time/CCT Total # of Minutes Spent Total Time Spent with Patient: Total time spent is greater than 50% in coordination of care (as documented) at patient's floor/unit and/or counseling patient: Coding Level of Care Code None Diagnoses Status post left knee replacement Z96.652 DM type 2 (diabetes mellitus, type 2) E11.9 AROLDO (acute kidney injury) N17.9 Acute dehydration E86.0 Thrombocytopenia D69.6 Episode of confusion R41.0 Left leg swelling M79.89 Acute encephalopathy G93.40
[2024-06-24] MEDS: POTASSIUM CHLORIDE CRTAB 20 MEQ TABCR PO SCH (09:37)
[2024-06-24] MEDS: ACETAMINOPHEN 325 MG TAB PO SCH (09:43)
[2024-06-24] MEDS: INSULIN ASPART PER UNIT CHARGE SC SCH (09:44)
--- NOTE | 2024-06-24 10:17 | Orthopedic Consultation ---
Date of Consultation June 24, 2024 Assessment & Plan (1) Status post left knee replacement: I reassured the patient that the amount of swelling and pain that he is having in his left knee is appropriate for this stage after surgery. There is no signs of infection. From an orthopedic standpoint he can discharge back to his facility as soon as medical team is comfortable with this. I texted with Dr. Rogers this morning. He said he was not available to come in today but would see the patient tomorrow if he still in the hospital. Patient can weight-bear as tolerated and work with PT OT. Continue aspirin for DVT prophylaxis. History of Present Illness Attending Physician: Wendi Manriquez MD History of Present Illness William Jiménez is an 89 year old male who presented to the ER ast night from [facility] due to concern for confusion and left knee swelling and pain. He was recently admitted From June 19 - 2024 for left total knee arthroplasty by Dr. Rogers. He was discharged to [facility] for rehabilitation. He reports taking oxycodone before talking to his daughter and he is sure that this made him more confused over the phone. He currently feels mostly back to his baseline. He notes only have one small bowel movement following his surgery and feels constipated. He is also concerned about the size and swelling of his left leg as this didn't happen with his right knee replacements. He has chronic thrombocytopenia with TET2 mutation. Placed on aspirin post operatively for VTE Prophylaxis. With the swelling he has been having significant right calf pain. Patient had a Doppler which was negative for DVT in the emergency room. He was admitted to internal medicine service from the emergency room. Orthopedics was consulted for evaluation and management. Patient was seen and examined on the floor. He reports he has a past history of a connective tissue disorder where he sought multiple different medical opinions before finally being placed on Enbrel which helped with his symptoms. He reports that the oxycodone yesterday did make him confused. Reports his pain is not too bad today. He says it feels better than yesterday. Denies fevers or chills. No numbness or tingling down the leg. Says it is easier to move his knee today than yesterday. Allergies Allergy/AdvReac Type Severity Reaction Status Date / Time prednisone Allergy Intermediate hyperglycem Verified 06/19/24 08:50 ia pregabalin [From Lyrica] Allergy Unknown Unknown Verified 06/19/24 08:50 Beta-Blockers AdvReac Intermediate Depression Verified 06/19/24 08:50 (Beta-Adrenergic Bloc diphenhydramine AdvReac Intermediate hyperactive Verified 06/19/24 08:50 [From Benadryl Allergy] spironolactone AdvReac Intermediate gynecomasti Verified 06/19/24 08:50 a testosterone AdvReac Intermediate gynecomasti Verified 06/19/24 08:50 a Home Medications Medication Instructions Recorded Confirmed Type ketorolac 0.5 % eye drops 1 drops OPB QAM 12/05/18 06/23/24 History prednisolone acetate 1 % eye 1 drops ophthalmic (eye) Q2D 12/05/18 06/23/24 History drops,suspension fluticasone propionate 50 1 spray intranasal BID 01/27/21 06/23/24 History mcg/actuation nasal spray,suspension blood glucose control, normal #1 ea 02/21/23 06/13/24 Rx (OneTouch Verio Mid Control solution) needle (disp) 18 G 18 gauge x 1" #50 ea 09/20/23 06/13/24 Rx (BD Regular Bevel Venus) blood sugar diagnostic (OneTouch #100 ea 10/18/23 06/13/24 Rx Verio test strips) blood-glucose sensor (Dexcom G7 12/05/23 06/13/24 History Sensor device) cyanocobalamin (vitamin B-12) 2,000 mcg PO QAM 12/05/23 06/23/24 History 1,000 mcg capsule safety needles 25 gauge x 5/8" (BD #50 ea 12/21/23 06/13/24 Rx SafetyGlide Needle) syringe (disposable) 3 mL (BD #100 ea 12/21/23 06/13/24 Rx Luer-Yee Syringe) syringe with needle 3 mL 25 x 5/8" #12 ea 01/19/24 06/13/24 Rx (BD SafetyGlide Syringe) BD Veo Insulin Syr (half unit) 0.3 #600 ea 02/20/24 06/13/24 Rx mL 31 gauge x 15/64" (insulin syr/ndl U100 half edilma) biotin 5,000 mcg disintegrating 5,000 mcg PO QAM 03/27/24 06/23/24 History tablet calcitriol 0.25 mcg capsule 0.25 mcg PO QAM 03/27/24 06/23/24 History escitalopram oxalate 20 mg tablet 20 mg PO QAM 03/27/24 06/23/24 History potassium chloride 20 mEq 40 meq PO QAM 03/27/24 06/23/24 History tablet,extended release insulin aspart (niacinamide) See Rx Instructions subcut DAILY 04/20/24 06/23/24 Rx (U-100) 100 unit/mL subcutaneous #30 mL solution (Fiasp U-100 Insulin) aspirin 81 mg tablet,delayed 81 mg PO BID 45 days #90 tabs 06/19/24 06/23/24 Rx release sennosides 8.6 mg tablet (Senokot) 17.2 mg (2 x 8.6 mg) PO HS 7 days 06/19/24 06/23/24 Rx #14 tabs qfiomk-kmnneohg-miiekhu 2 cap PO UD #240 caps 06/21/24 06/23/24 Rx 36,000-114,000-180,000 unit capsule,delay rel (Creon) Lantus U-100 Insulin 100 unit/mL 15 unit (0.15 mL) subcut HS #20 mL 06/22/24 06/23/24 Rx subcutaneous solution (insulin glargine) acetaminophen 325 mg tablet 650 mg PO Q4 PRN Fever Or Pain 06/23/24 06/23/24 History acetaminophen 500 mg capsule 1,000 mg PO Q8H PRN PAIN,MILD 06/23/24 06/23/24 History amoxicillin 500 mg tablet 2,000 mg PO ONCE PRN prior to 06/23/24 06/23/24 History dental procedure chlorthalidone 25 mg tablet 25 mg PO DAILY 06/23/24 06/23/24 History diclofenac sodium 1 % topical gel 4 g topical Q6 PRN JOINT PAIN 06/23/24 06/23/24 History magnesium oxide 400 mg PO DAILY 06/23/24 06/23/24 History olmesartan 20 mg tablet 10 mg PO DAILY 06/23/24 06/23/24 History oxycodone 5 mg tablet 5 mg PO Q6H PRN .MODERATE PAIN 06/23/24 06/23/24 History oxycodone 5 mg tablet 10 mg PO Q6H PRN .SEVERE PAIN 06/23/24 06/23/24 History vitamins A,C,H-qync-adcccg 2,148 1 tab PO DAILY 06/23/24 06/23/24 History mcg-113 mg-45 mg-17.4 mg tablet (PreserVision AREDS) Patient History Medical History History of constipation History of thrombocytopenia History of anemia Chronic kidney disease History of depression DM type 2 (diabetes mellitus, type 2) Chronic fatigue Exocrine pancreatic insufficiency History of obstructive sleep apnea Hypercholesterolemia History of prostate cancer Interstitial lung disease 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 Osteoporosis Raynaud's disease without gangrene Undifferentiated connective tissue disease Neuropathy History of pressure ulcer Spinal stenosis Hearing deficit Macular degeneration Anxiety HTN (hypertension) Loose body of left knee Arthritis of knee, left Edema Surgical History History of surgery (~2012) History of total right knee replacement Hx of blepharoplasty History of colonoscopy Status post lung surgery H/O umbilical hernia repair History of cataract surgery History of thoracentesis History of prostatectomy History of prostate biopsy Family History Brother Cancer Mother Cancer Other Breast cancer No family history of adverse response to anesthesia Denies family history of Ovarian cancer Prostate cancer Myocardial infarction Colorectal cancer Social History Smoking Status: Former smoker Tobacco Type: Cigarettes Age Started Using Tobacco: 21; Age Quit Using Tobacco: 25; packs per day: 1; Smoking End Date: 60 years ago for 2 years only.; Second Hand Exposure: Yes (History of exposure.); Do You Dip or Chew Tobacco: No; Tobacco Cessation Education Requested by Patient: No Hx Alcohol Use: Yes Alcohol type: wine Alcohol Intake Frequency: 4 or More x per/Week Alcohol Intake Frequency Comment: 1 glass of wine daily Hx Substance Use: No Preferred Language: Kosovan Communication Ability: Effective Visual Impairment: No Limitations Hearing Ability: Use of Hearing Aid Nurse Assessor Required: No Beliefs That Will Affect Care: None marital status: / Current Living Situation: Other Current Living Situation Comment: [facility]. current occupational status: retired How many Children do You have: 2 How many Children do You have Comment: 1 Other Information That Helps Us Care for You: No Feels Safe at Home: Yes Safety Concerns: Feels Safe At This Time Childhood Exposure to Second-Hand Smoke: No Diet: low salt Diet Comment: well balanced diet. caffeine: No (12 cups of coffee daily. ) Dental Care, Regularly: Yes Physical Activity Frequency: 3-4 Times per Week Physical Activity Frequency Comment: walking, goes to the gym twice weekly for weight lifting, hunts. Seatbelt Use: always Sunscreen Use: Yes Assistive Devices: Glasses, Hearing Aid - Bilateral, Hospital Bed and Walker Physical Exam Physical Exam: On exam he is alert and oriented x 3 and answers all questions appropriately this morning. Regarding his left lower extremity: I watched him walk from the bathroom to his bed using a walker. He was stable on his feet. Inspection of his wound reveals his incision to be healing well. There is no redness or drainage from the incision. This is left open to air. There was not a compression stocking on the leg at the time of my evaluation because he said it was soiled and was removed in the hospital earlier. He is able to wiggle his toes. He fires his quadriceps and hamstrings. He demonstrated active knee range of motion from about 45 degrees to 90. Results & Data Vital Signs (Past 12 Hours) Vital Signs Temp Pulse Pulse Resp BP BP Pulse Ox 06/24/24 09:54 06/24/24 07:57 36.7 C 55 L 16 120/58 L 93 06/24/24 03:35 06/24/24 03:35 36.6 C 59 L 18 143/71 H 93 06/24/24 03:35 06/24/24 03:35 36.6 C 59 L 18 143/71 H 93 06/24/24 02:30 53 L 15 120/62 95 06/24/24 02:00 66 16 144/65 H 06/24/24 01:45 54 L 17 128/71 06/24/24 01:30 61 16 128/60 94 06/24/24 01:15 61 15 123/60 93 06/24/24 01:00 60 15 137/61 96 06/24/24 00:45 60 16 127/60 94 06/24/24 00:15 59 L 19 122/60 94 06/24/24 00:00 64 19 143/58 H 91 06/23/24 23:45 58 L 14 130/57 L 92 06/23/24 23:30 60 18 127/61 95 06/23/24 23:15 59 L 15 117/53 L 94 06/23/24 23:00 61 16 132/58 L 94 06/23/24 22:58 37.0 C 06/23/24 22:57 93 O2 Del Method 06/24/24 09:54 Room Air 06/24/24 07:57 Room Air 06/24/24 03:35 Room Air 06/24/24 03:35 Room Air 06/24/24 03:35 Room Air 06/24/24 03:35 Room Air 06/24/24 02:30 Room Air 06/24/24 02:00 06/24/24 01:45 06/24/24 01:30 Room Air 06/24/24 01:15 Room Air 06/24/24 01:00 Room Air 06/24/24 00:45 Room Air 06/24/24 00:15 Room Air 06/24/24 00:00 Room Air 06/23/24 23:45 Room Air 06/23/24 23:30 Room Air 06/23/24 23:15 Room Air 06/23/24 23:00 Room Air 06/23/24 22:58 06/23/24 22:57 Room Air
--- NOTE | 2024-06-24 12:12 | Electrocardiogram Report ---
Test Reason : Blood Pressure : */* mmHG Vent. Rate : 61 BPM Atrial Rate : 61 BPM P-R Int : 184 ms QRS Dur : 126 ms QT Int : 432 ms P-R-T Axes : 113 -47 67 degrees QTcB Int : 434 ms Normal sinus rhythm Left axis deviation Left ventricular hypertrophy with QRS widening ( R in aVL , [place] product ) Non-specific intra-ventricular conduction block Abnormal ECG When compared with ECG of 25-Apr-2023 11:38, No significant change Confirmed by Sloan Cheng ([id number]) on 06/24/2024 12:11:45 PM Referred By: Ankit woodward [facility] Confirmed By: Sloan Cheng
--- NOTE | 2024-06-24 15:00 | Pharmacy Report ---
Pharmacy Glycemic Short Note 2 - Date of Service June 24, 2024 - Glycemic Short BSG Results (Last 24 hours): 06/23/24 06/24/24 06/24/24 22:45 02:31 03:40 Glucose 120 H 120 H POC Glucose 102 H 06/24/24 06/24/24 07:57 11:39 Glucose POC Glucose 196 H 252 H OUTPATIENT ANTIDIABETIC REGIMEN: * Lantus 15 units SQ HS * Fiasp ACHS SS (MDD 24 units) * HbA1c 7.3% (06/04/24) ASSESSMENT: * William is an 89 year old male admitted with confusion and pain status post left total knee arthroplasty 06/19. He has a history of insulin dependent type 2 diabetes mellitus. Pharmacy has been consulted to assist with glycemic management while inpatient. * Fasting BSG this AM slightly elevated likely due to basal dose held yesterday as HS BSG was below goal. Will initiate outpatient insulin dosage at dinner today and then back to bedtime with 33% reduction going forward. * No changes to NovoLog at this time, adjust tomorrow if still elevated after basal insulin. No glycemic stressors noted at this time. PLAN FOR INPATIENT GLYCEMIC CONTROL: * Hold outpatient oral diabetes medications * Basal insulin * Lantus 15 units SQ QDD x1 * Lantus 10 units SQ HS starting 06/25 * Bolus insulin * NovoLog per scale ACHS or Q6hrs while NPO * Goal Range: Low 110 mg/dL - High 140 mg/dL * Correction Factor: 25 mg/dL/unit * Nutritional / Prandial insulin per carb ratio of 1 unit per 8 grams CHO consumed
[2024-06-24] MEDS: CARBOHYDRATES FOR HYPOGLYCEMIA PO PRN (16:00)
[2024-06-24] MEDS: LANTUS PER UNIT CHARGE SQ ONE (17:33)
[2024-06-24] MEDS: APIXABAN 2.5 MG TAB PO SCH (20:15)
[2024-06-24] MEDS: SENNA 8.6 MG TAB PO SCH (20:23)
[2024-06-24] MEDS ORDERED: LANTUS PER UNIT CHARGE SQ SCH (21:00)
[2024-06-24] MEDS: traMADol HCL 50 MG TABLET PO PRN (23:19)
--- NOTE | 2024-06-25 07:21 | Orthopedic Progress Note ---
Date of Service June 25, 2024 Assessment & Plan (1) Status post left knee replacement: Plan: 89-year-old gentleman status post a left knee replacement done last week readmitted for confusion, pain, dehydration. He seems to be clinically doing better. He is off the oxycodone taken tramadol seems to be doing okay pain kern. His kidney function is improved with hydration. They have held his aspirin. His swelling is nothing out of the ordinary and I do not think it has anything to do with the aspirin intake or is low platelet level. This is a normal amount of swelling after total knee replacement. Ultrasound was negative for DVT. Plan: At this point he can progress with physical therapy. He can weight-bear as tolerated. I do think is probably best to stick to tramadol as opposed to oxycodone as it probably contributed some to his confusion. He is now hydrated which will likely help as well. The his amount of swelling is nothing out of the ordinary and I do not think it has anything to do with his platelet level or aspirin intake. Having said that with his increased creatinine it is probably better to stay on Eliquis at this point and avoid aspirin. He is okay to be discharged anytime from the orthopedic standpoint. I would recommend he be switched to Eliquis for 30 days postop at a prophylactic dose. He can resume therapy. Any orthopedic questions can be directly [phone]. (2) Thrombocytopenia: (3) Episode of confusion: (4) Acute dehydration: (5) AROLDO (acute kidney injury): (6) Left leg swelling: Admission and Anticipated Discharge Date Admission Date: June 24, 2024 Subjective 89-year-old gentleman status post a left knee replacement last week and readmitted for pain confusion and dehydration. He seems to be doing quite a bit better this morning. He is certainly awake alert and oriented. Pain seems to be under adequate control. Took some tramadol last night. No other complaints. No chest pain no shortness of breath. Physical Exam Physical Exam: Physical nation is a pleasant elderly male. I had to wake him this morning. Examination of the left leg reveals some moderate to swelling. The dressing is clean dry and intact. There is no drainage. Some mild to moderate at best swelling in this leg. Can dorsiflex and plantarflex his foot appropriately. He is neurologically intact. Results & Data Vital Signs (Past 12 Hours) Vital Signs Temp Pulse Resp BP Pulse Ox O2 Del Method 06/24/24 20:23 Room Air 06/24/24 19:27 36.4 C L 59 L 16 108/48 L 95 Room Air
--- NOTE | 2024-06-25 16:11 | Hospitalist Progress Note ---
Date of Service June 25, 2024 Assessment & Plan (1) Status post left knee replacement: (2) DM type 2 (diabetes mellitus, type 2): (3) AROLDO (acute kidney injury): (4) Acute dehydration: (5) Thrombocytopenia: (6) Episode of confusion: (7) Left leg swelling: (8) Acute encephalopathy: Plan 89 year old male presents to the ER from [facility] rehabilitation with recent knee replacement due to daughter concern for confusion and patient concern for his left knee pain #Acute toxic and metabolic encephalopathy - presentation with acute delirium. Combination of recent surgery/hospitalization, opioids, dehydration -improved after IV fluids but not totally back to baseline -work on pain control with less opioids: schedule acetaminophen, oxycodone stopped, tried tramadol but was more confused after doses. see if he can do without opioid. GFR not good enough for nsaid -increased bowel regimen for constipation -chlorthalidone held # Left knee swelling with ecchymosis. Postop from L TKA by Dr. Rogers 06/19 Looks like a typical postop knee replacement XR Knee unremarkable - no fracture or malalignment. LE duplex neg for DVT Chronic thrombocytopenia - switched low dose ASA to low dose apixaban for DVT prophylaxis Consulted ortho - reviewed recs by Dr. Rogers - he has no concerns about the appearance of the knee at this time #Acute kidney injury on CKD-3 Cr 1.9--> 1.6 after IVF, baseline 1.3-1.5 continue ARB, hold chlorthalidone AM BMP #Constipation Continue Senna, miralax. 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 chronic diarrhea #T2DM HbA1C 7.3 in May, no need to repeat Had hypoglycemia 06/24 on glargine + correctional. Usually is on glargine at home -relaxed correctional dosing and held glargine. At goal today #HTN Holding chlorthalidone as above Continue losartan VTE prophylaxis - see above Should be able to return to [facility] tomorrow I updated his daughter and son-in-law in the room 06/24 Admission and Anticipated Discharge Date Admission Date: June 25, 2024 Ezio Thomas is still having some confusion, currently a little worse than yesterday. Reports ortho and PT saw him and said he's ok to go home (PT/OT rec return to [facility]) Tramadol is controlling his pain but he noticed increased confusion after the dose Physical Exam 2 Physical Exam: Last 24h vitals reviewed GEN: no acute distress, sitting up in chair HEENT: pupils equal, sclerae anicteric, moist MM RESP: normal WOB, CTAB CV: reg no mrg ABD: soft/nt/nd +BT : no dover SKIN: warm and dry, no generalized rashes. L TKA with expected amount of swelling and ecchymosis, mild / 1+ bilateral ankle/foot edema NEURO: AOx person, place, and situation, makes some confused and some garbled statements however. Face symmetric, speech normal, moves 4 ext spontaneously and equally Results & Data Results & Data Vital Signs (Past 12 Hours) Vital Signs Temp Pulse Pulse Resp BP Pulse Ox O2 Del Method 06/25/24 14:47 36.5 C 58 L 18 147/63 H 95 Room Air 06/25/24 11:30 36.5 C 85 18 125/61 95 Room Air 06/25/24 07:53 36.7 C 71 18 120/71 92 Room Air Laboratory Results 06/24/24 03:40 06/24/24 03:40 PG Care Time/CCT Total # of Minutes Spent Total Time Spent with Patient: Total time spent is greater than 50% in coordination of care (as documented) at patient's floor/unit and/or counseling patient: Coding Level of Care Code 58294 SUB INP/OBS CARE 2/35MIN Diagnoses Status post left knee replacement Z96.652 DM type 2 (diabetes mellitus, type 2) E11.9 AROLDO (acute kidney injury) N17.9 Acute dehydration E86.0 Thrombocytopenia D69.6 Episode of confusion R41.0 Left leg swelling M79.89 Acute encephalopathy G93.40
[2024-06-25] MEDS: LANTUS PER UNIT CHARGE SQ SCH (20:59)
[2024-06-25] MEDS ORDERED: LANTUS PER UNIT CHARGE SQ SCH (21:00)
--- NOTE | 2024-06-26 11:03 | Hospitalist Progress Note ---
Date of Service June 26, 2024 Assessment & Plan (1) Status post left knee replacement: Plan: Recovering uneventfully. Left total knee arthroplasty was performed on June 19. Supportive care (2) DM type 2 (diabetes mellitus, type 2): Plan: ADA diet. Sliding scale coverage. (3) AROLDO (acute kidney injury): Plan: Mild on admission. Improved with IV fluids. Monitor intake and output (4) Acute dehydration: (5) Thrombocytopenia: Plan: Mild on admission. No intervention needed. Serial labs (6) Episode of confusion: (7) Left leg swelling: (8) Acute encephalopathy: Plan: Probably combined acute metabolic and toxic encephalopathy. Opioid treatment may have been part of the problem. However due to his advanced age and hospitalization his symptoms are not unexpected. Supportive care (9) Hypertension: Plan: Stable. Chlorthalidone is temporarily on hold. Continue losartan Plan Return to [facility] when arrangements are finalized Admission and Anticipated Discharge Date Admission Date: June 25, 2024 Subjective Alert. He appears to be oriented. No distress. Vital signs are stable. Afebrile. Jhkyt-em-abub glucose 127 this morning, June 26. Awaiting insurance authorization for return to [facility]. He is medically stable. Review of Systems 2 Review of Systems: Constitutionalno fever or chills ENTno blurred vision, no double vision, no epistaxis, no sore throat Respiratoryno cough, no wheezing, no shortness of breath Cardiacno palpitations, no chest pain, no syncope Xavi nausea, vomiting, diarrhea, melena, hematochezia GUno urinary retention, no urinary incontinence, no dysuria, no hematuria Musculoskeletallimited range of motion left knee after recent surgery. No joint pain, no muscle tenderness Skinno bruising, no rashes, no pruritus Neurono isolated weakness, no paresthesia, no weakness Psychno depression, no anxiety Physical Exam 2 Physical Exam: General-alert and oriented x3, no fever, no chills HEENT-head atraumatic and normocephalic, pupils equal and reactive to light, extraocular muscles intact Neck-no lymphadenopathy or thyromegaly, trachea midline Chest-clear to auscultation. No rales, wheezing or rhonchi Cardiac-regular rate and rhythm, normal S1 and S2 Abdomen-normal bowel sounds, no hepatosplenomegaly Extremities-limited range of motion left knee after recent surgery. No evidence of infection. Neuro-cranial nerves II through XII intact, motor and sensory function within normal limits, strength symmetrical, no focal deficits Psych-normal affect, normal mood Results & Data Results & Data Vital Signs (Past 12 Hours) Vital Signs Temp Pulse Resp BP Pulse Ox O2 Del Method 06/26/24 07:31 Room Air 06/26/24 07:15 36.6 C 62 18 157/67 H 97 Room Air Laboratory Results 06/24/24 03:40 06/24/24 03:40 PG Care Time/CCT Total # of Minutes Spent Total Time Spent with Patient: Total time spent is greater than 50% in coordination of care (as documented) at patient's floor/unit and/or counseling patient: Coding Level of Care Code 30561 SUB INP/OBS CARE 3/50MIN Diagnoses Status post left knee replacement Z96.652 DM type 2 (diabetes mellitus, type 2) E11.9 AROLDO (acute kidney injury) N17.9 Acute dehydration E86.0 Thrombocytopenia D69.6 Episode of confusion R41.0 Left leg swelling M79.89 Acute encephalopathy G93.40 Primary hypertension I10 Hypertension type: primary hypertension (9) Hypertension Hypertension type: primary hypertension Qualified Code(s): I10 - Essential (primary) hypertension
--- NOTE | 2024-06-26 11:07 | Orthopedic Progress Note ---
Date of Service June 26, 2024 Assessment & Plan (1) Status post left knee replacement: Plan: 89-year-old gentleman now up 1 week out from a total knee replacement. Is been readmitted for multiple medical issues that seem to be improving but slowly. Continues to still be a bit confused. Kidney function and hydration has improved. Pain control is stable. Does not tolerate pain but does not tolerate pain medicines well either. Plan: At this point he has been switched to Eliquis for DVT prophylaxis. Will continue thigh-high teds, SCDs, Eliquis for 30 days. He can continue PT weight- bear as tolerated. Orthopedically he can be transferred back to [facility] at any time medically stable. Any orthopedic questions can be directly [phone]. Admission and Anticipated Discharge Date Admission Date: June 25, 2024 Subjective 89-year-old gentleman with multiple medical comorbidities now 1 week out from a left total knee replacement. He is being readmitted for some confusion, dehydration, pain control. He continues to have intermittent confusion. Moderate amount of pain. Denies any chest pain or shortness of breath. Physical Exam Physical Exam: Physical exam shows a pleasant elderly male. He is lying in bed. Continues to appear a bit confused. Examination left leg reveals a leg to be well aligned. Is got moderate swelling. There is no drainage. He can dorsiflex and plantarflex his foot appropriately. Results & Data Vital Signs (Past 12 Hours) Vital Signs Temp Pulse Resp BP Pulse Ox O2 Del Method 06/26/24 07:31 Room Air 06/26/24 07:15 36.6 C 62 18 157/67 H 97 Room Air
--- NOTE | 2024-06-27 15:36 | Hospitalist Progress Note ---
Date of Service June 27, 2024 Assessment & Plan (1) Acute encephalopathy: (2) AROLDO (acute kidney injury): (3) Thrombocytopenia: (4) Status post left knee replacement: Plan 89 year old male presents to the ER from [facility] with recent knee replacement due to daughter concern for confusion and patient concern for his left knee pain #Acute toxic and metabolic encephalopathy - presentation with acute delirium. Combination of recent surgery/hospitalization, opioids, dehydration. This has improved. Avoiding opioids. Pain control: scheduled tylenol # Left knee swelling with ecchymosis. Postop from L TKA by Dr. Rogers 06/19 Looks like a typical postop knee replacement XR Knee unremarkable - no fracture or malalignment. LE duplex neg for DVT Chronic thrombocytopenia - switched low dose ASA to low dose apixaban for DVT prophylaxis Consulted ortho - reviewed recs by Dr. Rogers - no concerns about the appearance of the knee at this time #Acute kidney injury on CKD-3 Cr 1.9--> 1.6 after IVF, baseline 1.3-1.5 continue ARB, hold chlorthalidone Encourage PO hydration Follow BMP in AM #Anemia/Thrombocytopenia-hgb 8.5 down from previous baseline 11, normocytic to macrocytic. B12 and folate normal in 03/2024. Likely blood loss from recent surgery on chronic anemia. Previous Heme eval and bone marrow bx in 2023 showed trilineage normal bone marrow, diagnosis CCUS. Abd US neg for cirrhosis or splenomegaly. Was on po Fe but then had iron overload after 3 months -follow CBC in 1-2 weeks -consider Fe tabs but with constipation, may not tolerate #Constipation Continue Senna, prn miralax. 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 chronic diarrhea #T2DM HbA1C 7.3 in May Continue 10 Units lantus + SSI BSG acceptable #HTN Holding chlorthalidone as above - BP stable despite this Continue losartan VTE prophylaxis - Eliquis Dispo: continued inpatient stay awaiting rehab Admission and Anticipated Discharge Date Admission Date: June 25, 2024 Supervising Physician Co-Signing Physician Notes PA Supervision Note: I did not personally see or examine the patient today, but I verified all maldonado points of PAM Everett's assessment and plan with the following exceptions/additions: None Subjective Patient seen resting in bed, reporting mild knee pain but has ice on and requested tylenol from RN. he had two small BM this morning but feels like he has more to go Review of Systems Review of Systems: All systems reviewed & are unremarkable except as noted in Subjective Physical Exam Physical Exam: General: NAD, VS as above Resp: normal respiratory effort, lungs clear to auscultation CV: RRR, no murmur, Abd: normal bowel sounds, non tender, soft Extremities: Moves all extremities, Neuro: A&O x3, Results & Data Results & Data Vital Signs (Past 12 Hours) Vital Signs Temp Pulse Pulse Resp BP Pulse Ox O2 Del Method 06/27/24 14:57 98.2 F 63 16 124/68 93 Room Air 06/27/24 07:52 98.2 F 67 15 138/64 96 Room Air Laboratory Results POC glucose reviewed PG Care Time/CCT Total # of Minutes Spent Total Time Spent with Patient: Total time spent is greater than 50% in coordination of care (as documented) at patient's floor/unit and/or counseling patient: Coding Level of Care Code 96195 SUB INP/OBS CARE 04/14MIN Diagnoses Acute encephalopathy G93.40 AROLDO (acute kidney injury) N17.9 Thrombocytopenia D69.6 Status post left knee replacement Z96.652
[2024-06-28] MEDS: IBUPROFEN 600 MG TAB PO ONE (00:24)
[2024-06-28] MEDS ORDERED: Nursing to Pharmacy Communication SCH (15:15)
[2024-06-28] MEDS: IBUPROFEN 200 MG TAB PO STA (15:52)
[2024-06-28] MEDS: PANCREAZE (LIPASE 10,500U) CAP PO SCH (15:53)
--- NOTE | 2024-06-28 17:26 | Hospitalist Progress Note ---
Date of Service June 28, 2024 Assessment & Plan (1) Acute encephalopathy: (2) AROLDO (acute kidney injury): (3) Thrombocytopenia: (4) Status post left knee replacement: Plan 89 year old male presents to the ER from [facility] with recent knee replacement due to daughter concern for confusion and patient concern for his left knee pain #Acute toxic and metabolic encephalopathy - presentation with acute delirium. Combination of recent surgery/hospitalization, opioids, dehydration. This has improved. Avoiding opioids. Pain control: scheduled tylenol # Left knee swelling with ecchymosis. Postop from L [facility] by Dr. Rogers 06/19 XR Knee unremarkable - no fracture or malalignment. LE duplex neg for DVT Chronic thrombocytopenia - switched low dose ASA to low dose apixaban for DVT prophylaxis Consulted ortho - reviewed recs by Dr. Rogers - no concerns about the appearance of the knee at this time PT/OT consulted - rec rehab, CM following. Peer 2 peer denied bc patient walked too far, despite living alone, having 2 flights of stairs to living space and moderate assistance for dressing. Family appeal is an option. #Acute kidney injury on CKD-3 Cr 1.9--> 1.6 after IVF, baseline 1.3-1.5 continue ARB, hold chlorthalidone, and hold KCl while off chlorthalidone Encourage PO hydration Follow BMP in AM #Anemia/Thrombocytopenia-hgb 8.5 down from previous baseline 11, normocytic to macrocytic. B12 and folate normal in 03/2024. Likely blood loss from recent surgery on chronic anemia. Previous Heme eval and bone marrow bx in 2023 showed trilineage normal bone marrow, diagnosis CCUS. Abd US neg for cirrhosis or splenomegaly. Was on po Fe but then had iron overload after 3 months -follow CBC in AM -consider Fe tabs but with constipation, may not tolerate #Constipation Continue Senna, prn miralax. 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 chronic diarrhea #T2DM HbA1C 7.3 in May Continue 10 Units lantus + SSI BSG acceptable #HTN Holding chlorthalidone as above - BP stable despite this Continue losartan VTE prophylaxis - Eliquis Dispo: continued inpatient stay awaiting safe discharge plan Admission and Anticipated Discharge Date Admission Date: June 25, 2024 Supervising Physician Co-Signing Physician Notes PA Supervision Note: I did not personally see or examine the patient today, but I verified all maldonado points of PAM Everett's assessment and plan with the following exceptions/additions: Check BMP for renal function and K+ level in AM , follow CBC for anemia Subjective patient seen late afternoon. complaining of knee pain no BM yet today notified of having to do a peer to peer Review of Systems Review of Systems: All systems reviewed & are unremarkable except as noted in Subjective Physical Exam Physical Exam: General: NAD, vitals as above, lying in bed, appears painful Pulm: breathing unlabored CV: well perfused extremities: moves all extremities Results & Data Results & Data Vital Signs (Past 12 Hours) Vital Signs Temp Pulse Resp BP Pulse Ox O2 Del Method 06/28/24 15:03 98.1 F 65 16 120/61 95 Room Air 06/28/24 07:38 98.1 F 65 16 163/62 H 96 Room Air PG Care Time/CCT Total # of Minutes Spent Total Time Spent with Patient: Total time spent is greater than 50% in coordination of care (as documented) at patient's floor/unit and/or counseling patient: Coding Level of Care Code 43254 SUB INP/OBS CARE 04/14MIN Diagnoses Acute encephalopathy G93.40 AROLDO (acute kidney injury) N17.9 Thrombocytopenia D69.6 Status post left knee replacement Z96.652
[2024-06-29 07:24] LABS: Basophils # (auto) 0.02 K/uL (0.00-0.20); Basophils % (auto) 0.3 %; Eosinophils # (auto) 0.42 K/uL (0.00-0.50); Hematocrit (blood only) 28.5 % (42.0-52.0); Hemoglobin 9.5 g/dl (14.0-18.0); Immature Granulocytes # (auto) 0.03 K/uL (0.01-0.20); Immature Granulocytes % (auto) 0.4 %; Lymphocytes % (auto) 14.2 %; Mean Corpuscular Hemoglobin 32.6 pg (25.0-34.0); Mean Corpuscular Hgb Conc 33.3 g/dL (32.0-36.0); Mean Corpuscular Volume 97.9 fL (80.0-100.0); Mean Platelet Volume 11.2 fL (9.4-12.4); Monocytes # (auto) 0.66 K/uL (0.11-0.59); Monocytes % (auto) 9.4 %; Neutrophils # (auto) 4.92 K/uL (1.40-6.50); Neutrophils % (auto) 69.7 %; Platelet Count 135 K/uL (130-400); RDW Coefficient of Variation 13.2 % (11.5-14.5); RDW Standard Deviation 47.1 fL (36.4-46.3); Red Blood Count 2.91 M/uL (4.70-6.10); White Blood Count 7.05 K/ul (4.8-10.8)
[2024-06-29 07:45] LABS: BUN Creatinine Ratio 27.8 (10-20); Calcium 7.8 mg/dl (8.6-10.3); Creatinine Clr Calc Pharmacy 39.3 ml/min; Potassium 3.8 mmol/L (3.5-5.1)
--- NOTE | 2024-06-29 08:11 | Orthopedic Progress Note ---
Date of Service June 29, 2024 Assessment & Plan (1) Status post left knee replacement: Continue PT/OT, tka protocol. encouraged him to work on his range of motion. dvt prophylaxis: serina, scd's, noman d/c planning: awaiting peer to peer review for discharge to [facility] I believe. follow up as scheduled with Dr Ken Holguin .89 year old patient s/p left tka, admitted for delirium post op. He feels things have improved, feeling better. Does have some knee pain. Review of Systems All systems reviewed & are unremarkable except as noted in HPI & below. Physical Exam .He was sleeping well this morning. Alert and oriented. NAD Left leg: + swelling. Able to do straight leg raise, dorsiflex and plantarflex. Does have some stiffness with ROM. Results & Data Results & Data Laboratory Results . Diagnostic Findings . PG Care Time/CCT Total # of Minutes Spent Total Time Spent with Patient: Total time spent is greater than 50% in coordination of care (as documented) at patient's floor/unit and/or counseling patient: Coding Level of Care Code 97671 Post Operative Follow-Up Diagnoses Status post left knee replacement Z96.652
--- NOTE | 2024-06-29 14:41 | Hospitalist Progress Note ---
Date of Service June 29, 2024 Assessment & Plan (1) Acute encephalopathy: (2) AROLDO (acute kidney injury): (3) Thrombocytopenia: (4) Status post left knee replacement: Plan 89 year old male presents to the ER from [facility] with recent knee replacement due to daughter concern for confusion and patient concern for his left knee pain #Acute toxic and metabolic encephalopathy - presentation with acute delirium. Combination of recent surgery/hospitalization, opioids, dehydration. This has improved. Avoiding opioids. Pain control: scheduled tylenol # Left knee swelling with ecchymosis. Postop from L T[facility] by Dr. Rogers 06/19 XR Knee unremarkable - no fracture or malalignment. LE duplex neg for DVT Chronic thrombocytopenia - switched low dose ASA to low dose apixaban for DVT prophylaxis Consulted ortho - reviewed recs by Dr. Rogers - no concerns about the appearance of the knee at this time PT/OT consulted - rec rehab, CM following. Peer 2 peer denied bc patient walked too far, despite living alone, having 2 flights of stairs to living space and moderate assistance for dressing. Family appeal in progress. #Acute kidney injury on CKD-3 Cr 1.9--> 1.6 --> 1.4 after IVF, baseline 1.3-1.5 continue ARB. Chlorthalidone/KCl on hold - kidney function stable and able to be restarted by BP is stable Encourage PO hydration #Anemia/Thrombocytopenia-hgb 8.5 down from previous baseline 11, normocytic to macrocytic. B12 and folate normal in 03/2024. Likely blood loss from recent surgery on chronic anemia. Previous Heme eval and bone marrow bx in 2023 showed trilineage normal bone marrow, diagnosis CCUS. Abd US neg for cirrhosis or splenomegaly. Was on po Fe but then had iron overload after 3 months -follow CBC in AM -consider Fe tabs but with constipation, may not tolerate #Constipation Continue Senna, prn miralax. 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 chronic diarrhea #T2DM HbA1C 7.3 in May Continue 10 Units lantus + SSI BSG acceptable #HTN Holding chlorthalidone as above - BP stable despite this Continue losartan VTE prophylaxis - Eliquis Dispo: continued inpatient stay awaiting safe discharge plan Admission and Anticipated Discharge Date Admission Date: June 25, 2024 Supervising Physician Co-Signing Physician Notes Attending Attestation: Chart reviewed, care plan d/w PAM Everett. I agree w/ the maldonado components of her documentation. Waiting on final determination from family appeal for SNF rehab placement. Otilio Hope MD Subjective Patient seen sitting up in the chair eating lunch - frustrated with the prolonged stay having increased pain in knee after therapy otherwise no acute complaints Review of Systems Review of Systems: All systems reviewed & are unremarkable except as noted in Subjective Physical Exam Physical Exam: General: NAD, vitals as above, lying in bed, sitting up inthe chair eating lunch Pulm: breathing unlabored CV: well perfused extremities: moves all extremities Results & Data Results & Data Vital Signs (Past 12 Hours) Vital Signs Temp Pulse Resp BP Pulse Ox O2 Del Method 06/29/24 07:53 98.0 F 67 19 134/83 99 Room Air Laboratory Results cbc and chemistry reviewed PG Care Time/CCT Total # of Minutes Spent Total Time Spent with Patient: Total time spent is greater than 50% in coordination of care (as documented) at patient's floor/unit and/or counseling patient: Coding Level of Care Code 37802 SUB INP/OBS CARE 04/14MIN Diagnoses Acute encephalopathy G93.40 AROLDO (acute kidney injury) N17.9 Thrombocytopenia D69.6 Status post left knee replacement Z96.652
[2024-06-29] MEDS: IBUPROFEN 200 MG TAB PO STA (16:02)
[2024-06-29] MEDS ORDERED: ACETAMINOPHEN 325 MG TAB PO PRN (16:33)
--- NOTE | 2024-06-30 07:46 | Orthopedic Progress Note ---
Date of Service June 30, 2024 Assessment & Plan (1) Status post left knee replacement: Plan: 89-year-old gentleman now 11 days out from a total knee replacement complicated by readmission for dehydration, confusion, and adequate pain control. He seems to be doing quite a bit better. He is trying to be replaced back to [facility] facility but being denied. Plan: From an orthopedic standpoint he is okay for discharge anytime. This needs to resume physical therapy. He does not do well with pain medicines I do tricks to try and stick to Tylenol is much as possible. He is on DVT prophylaxis now including Thiede teds, SCDs, and now on Eliquis. We will plan on the Eliquis for 30 days. I still need to see him back in clinic about 2 to 3 weeks out from surgery date. Any orthopedic questions can be directly [phone]. (2) Episode of confusion: (3) Acute dehydration: (4) Acute encephalopathy: Admission and Anticipated Discharge Date Admission Date: June 25, 2024 Subjective 89-year-old gentleman now 11 days out from a total knee replacement readmitted for confusion, dehydration, pain control. He seems to be doing quite well this morning. Had to wake him this morning. He is having difficulty hearing. His knee pain seems to be under good control this morning. He is taking mostly Tylenol by his report. Physical Exam Physical Exam: Physical nation was a pleasant elderly male. William is was resting and sleeping this morning. He awoke and he was awake alert and appropriate and oriented. Examination of left leg reveals some moderate swelling. He can dorsiflex and plantarflex his foot appropriately. He is neurologically intact. There is no drainage. Results & Data Vital Signs (Past 12 Hours) Vital Signs Temp Pulse Resp BP Pulse Ox O2 Del Method 06/29/24 23:47 Room Air 06/29/24 21:19 36.8 C 67 18 124/64 96 Room Air
--- NOTE | 2024-06-30 11:24 | Hospitalist Progress Note ---
Date of Service June 30, 2024 Assessment & Plan (1) Acute encephalopathy: (2) AROLDO (acute kidney injury): (3) Thrombocytopenia: (4) Status post left knee replacement: Plan 89 year old male presents to the ER from [facility] with recent knee replacement due to daughter concern for confusion and patient concern for his left knee pain #Acute toxic and metabolic encephalopathy - presentation with acute delirium. Combination of recent surgery/hospitalization, opioids, dehydration. This has improved. Avoiding opioids. Pain control: scheduled tylenol # Left knee swelling with ecchymosis. Postop from [facility] by Dr. Rogers 06/19 XR Knee unremarkable - no fracture or malalignment. LE duplex neg for DVT Chronic thrombocytopenia - switched low dose ASA to low dose apixaban for DVT prophylaxis Consulted ortho - reviewed recs by Dr. Rogers - no concerns about the appearance of the knee at this time PT/OT consulted - rec rehab, CM following. Peer 2 peer denied bc patient walked too far, despite living alone, having 2 flights of stairs to living space and moderate assistance for dressing. Family appeal in progress. #Acute kidney injury on CKD-3 Cr 1.9--> 1.6 --> 1.4 after IVF, baseline 1.3-1.5 Encourage PO hydration #Anemia/Thrombocytopenia-hgb 8.5 down from previous baseline 11, normocytic to macrocytic. B12 and folate normal in 03/2024. Likely blood loss from recent surgery on chronic anemia. Previous Heme eval and bone marrow bx in 2023 showed trilineage normal bone marrow, diagnosis CCUS. Abd US neg for cirrhosis or splenomegaly. Was on po Fe but then had iron overload after 3 months -follow CBC in AM -consider Fe tabs but with constipation, may not tolerate #Constipation Continue Senna, prn miralax. 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 I agree w/ the maldonado components of her documentation. Waiting on final determination from family appeal for SNF rehab placement. Appreciate SW assistance. Otilio Hope MD Subjective PAtient seen lying in bed some knee pain after working with PT frustrated with still being here. Misses his own cooking Review of Systems Review of Systems: All systems reviewed & are unremarkable except as noted in Subjective Physical Exam Physical Exam: General: NAD, vitals as above, lying in bed, lying in bed Pulm: breathing unlabored CV: well perfused extremities: moves all extremities, ice over knee. nonpitting edema to LE Results & Data Results & Data Vital Signs (Past 12 Hours) Vital Signs Temp Pulse Resp BP Pulse Ox O2 Del Method 06/30/24 11:17 98.2 F 68 18 142/64 H 95 Room Air 06/30/24 07:44 97.7 F 68 18 128/66 95 Room Air 06/29/24 23:47 Room Air PG Care Time/CCT Total # of Minutes Spent Total Time Spent with Patient: Total time spent is greater than 50% in coordination of care (as documented) at patient's floor/unit and/or counseling patient: Coding Level of Care Code 59983 SUB INP/OBS CARE 2/35MIN Diagnoses Acute encephalopathy G93.40 AROLDO (acute kidney injury) N17.9 Thrombocytopenia D69.6 Status post left knee replacement Z96.652
[2024-06-30] MEDS: LANTUS PER UNIT CHARGE SQ SCH (20:52)
[2024-07-01] MEDS: POTASSIUM CHLORIDE CRTAB 20 MEQ TABCR PO SCH (08:10)
--- NOTE | 2024-07-01 10:50 | Hospitalist Progress Note ---
Date of Service July 01, 2024 Assessment & Plan (1) Acute encephalopathy: (2) AROLDO (acute kidney injury): (3) Thrombocytopenia: (4) Status post left knee replacement: Plan 89 year old male presents to the ER from [facility] with recent knee replacement due to daughter concern for confusion and patient concern for his left knee pain. Confusion likely related to dehydration and opioid use, this has improved. Evaluated by Dr. Rogers and no concerns about appearance of his knee. Knee Xray and LE Duplex negative for DVT. He remains inpatient waiting for a safe discharge plan. #Acute toxic and metabolic encephalopathy - presentation with acute delirium. Combination of recent surgery/hospitalization, opioids, dehydration. This has improved. Avoiding opioids. Pain control: scheduled tylenol # Left knee swelling with ecchymosis. Postop from L [facility] by Dr. Rogers 06/19 Chronic thrombocytopenia - switched low dose ASA to low dose apixaban for DVT prophylaxis Consulted ortho - reviewed recs by Dr. Rogers - no concerns about the appearance of the knee at this time PT/OT consulted - rec rehab, CM following. Peer 2 peer denied bc patient walked too far, despite living alone, having 2 flights of stairs to living space and moderate assistance for dressing. Family appeal in progress. #Acute kidney injury on CKD-3 Cr 1.9--> 1.6 --> 1.4 after IVF, baseline 1.3-1.5 Encourage PO hydration #Anemia/Thrombocytopenia-hgb 8.5 down from previous baseline 11, normocytic to macrocytic. B12 and folate normal in 03/2024. Likely blood loss from recent surgery on chronic anemia. Previous Heme eval and bone marrow bx in 2023 showed trilineage normal bone marrow, diagnosis CCUS. Abd US neg for cirrhosis or splenomegaly. Was on po Fe but then had iron overload after 3 months -follow CBC in AM -consider Fe tabs but with constipation, may not tolerate #Constipation Continue Senna, prn miralax. 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 I agree w/ the maldonado components of her documentation. Waiting on final determination from family appeal for SNF rehab placement. Appreciate assistance. Otilio Hope MD Subjective patient seen lying in bed, concerned about his blood pressure reassured that his chlorthalidone was resumed for today and blood pressures can run higher in the hospital pain is controlled Review of Systems Review of Systems: All systems reviewed & are unremarkable except as noted in Subjective Physical Exam Physical Exam: General: NAD, vitals as above, lying in bed, lying in bed Pulm: breathing unlabored CV: well perfused extremities: moves all extremities, nonpitting edema to LE Results & Data Results & Data Vital Signs (Past 12 Hours) Vital Signs Temp Pulse Resp BP Pulse Ox O2 Del Method 07/01/24 07:21 97.9 F 52 L 16 151/64 H 96 Room Air Laboratory Results poc glucose reviewed PG Care Time/CCT Total # of Minutes Spent Total Time Spent with Patient: Total time spent is greater than 50% in coordination of care (as documented) at patient's floor/unit and/or counseling patient: Coding Level of Care Code 13316 SUB INP/OBS CARE 2/35MIN Diagnoses Acute encephalopathy G93.40 AROLDO (acute kidney injury) N17.9 Thrombocytopenia D69.6 Status post left knee replacement Z96.652
[2024-07-02] MEDS: DOCUSATE SODIUM 100 MG CAP PO SCH (10:28)
--- NOTE | 2024-07-02 13:51 | Hospitalist Progress Note ---
Date of Service July 02, 2024 Assessment & Plan (1) Acute encephalopathy: (2) AROLDO (acute kidney injury): (3) Thrombocytopenia: (4) Status post left knee replacement: Plan 89 year old male presents to the ER from [facility] with recent knee replacement due to daughter concern for confusion and patient concern for his left knee pain. Confusion likely related to dehydration and opioid use, this has improved. Evaluated by Dr. Rogers and no concerns about appearance of his knee. Knee Xray and LE Duplex negative for DVT. He remains inpatient waiting for a safe discharge plan. #Acute toxic and metabolic encephalopathy - presentation with acute delirium. Combination of recent surgery/hospitalization, opioids, dehydration. This has improved. Avoiding opioids. Pain control: scheduled Tylenol # Left knee swelling with ecchymosis. Postop from L [facility] by Dr. Rogers 06/19 Chronic thrombocytopenia - switched low dose ASA to low dose apixaban for DVT prophylaxis Consulted ortho - reviewed recs by Dr. Rogers - no concerns about the appearance of the knee at this time PT/OT consulted - rec rehab, CM following. Peer 2 peer denied bc patient walked too far, despite living alone, having 2 flights of stairs to living space and moderate assistance for dressing. #Acute kidney injury on CKD-3 Cr 1.9--> 1.6 --> 1.4 after IVF, baseline 1.3-1.5 Encourage PO hydration #Anemia/Thrombocytopenia hgb 8.5 down from previous baseline 11 on admission, normocytic to macrocytic. B12 and folate normal in 03/2024. Likely blood loss from recent surgery on chronic anemia. Previous Heme eval and bone marrow bx in 2023 showed trilineage normal bone marrow, diagnosis CCUS. Abd US neg for cirrhosis or splenomegaly. Was on po Fe but then had iron overload after 3 months hgb 06/29 - 9.5 #Constipation Continue Senna, prn miralax. Added Colace 07/02. 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 I agree w/ the maldonado components of her documentation. Change in d/c plans --> patient wants to d/c home and forego the family appeal for SNF placement. Instead will return home; a family member will be staying with him upon discharge to assist him. Otilio Hope MD Subjective Patient seen and examined this morning. patient anxious to leave the hospital. He has family coming in to help him at home so that he can be discharged safely tomorrow. He denied any complaints. Physical Exam Constitutional: WD/WN, vitals as above Eyes: PERRL, conjunctivae normal, anicteric sclerae Respiratory: breathing unlabored Cardiovascular: well perfused Psychiatric: A+Ox3, euthymic affect Results & Data Results & Data Vital Signs (Past 12 Hours) Vital Signs Temp Pulse Resp BP Pulse Ox O2 Del Method 07/02/24 07:06 36.7 C 68 16 123/64 95 Room Air PG Care Time/CCT Total # of Minutes Spent Total Time Spent with Patient: Total time spent is greater than 50% in coordination of care (as documented) at patient's floor/unit and/or counseling patient: Coding Level of Care Code 32788 SUB INP/OBS CARE 2/35MIN Diagnoses Acute encephalopathy G93.40 AROLDO (acute kidney injury) N17.9 Thrombocytopenia D69.6 Status post left knee replacement Z96.652
[2024-07-02 19:57] VITALS: RESP 18
[2024-07-03 07:42] VITALS: BP 133/60; PULSE 68; TEMP 98.8; O2SAT 91
--- NOTE | 2024-07-03 09:29 | Discharge Summary ---
Discharge Summary Date of Service July 03, 2024 Principal Dx & Hospital Course #1 = Principal Diagnosis (1) Acute encephalopathy: (2) AROLDO (acute kidney injury): (3) Thrombocytopenia: (4) Status post left knee replacement: Plan 89 year old male presents to the ER from [facility] with recent knee replacement due to daughter concern for confusion and patient concern for his left knee pain. Confusion likely related to dehydration and opioid use, this has improved. Evaluated by Dr. Rogers and no concerns about appearance of his knee. Knee Xray and LE Duplex negative for DVT. He remains inpatient waiting for a saf e discharge plan. #Acute toxic and metabolic encephalopathy - presented with acute delirium, since resolved. Combination of recent surgery/hospitalization, opioids, dehydration. Avoid opioids on discharge. Pain control: scheduled Tylenol # Left knee swelling with ecchymosis. Postop from L TKA by Dr. Rogers 06/19 Chronic thrombocytopenia - switched low dose ASA to low dose apixaban for DVT prophylaxis --> reached out to Dr. Rogers - continue low dose Apixaban for 3 additional weeks on dc. Consulted ortho - reviewed recs by Dr. Rogers - no concerns about the appearance of the knee at this time PT/OT consulted - rec rehab, CM following. Peer 2 peer denied bc patient walked too far, despite living alone, having 2 flights of stairs to living space and moderate assistance for dressing. Patient has additional help at home - he will be going home w/ outpatient therapy. #Acute kidney injury on CKD-3 Cr 1.9--> 1.6 --> 1.4 after IVF, baseline 1.3-1.5 Resolved. #Anemia/Thrombocytopenia hgb 8.5 down from previous baseline 11 on admission, normocytic to macrocytic. B12 and folate normal in 03/2024. Likely blood loss from recent surgery on chronic anemia. Previous Heme eval and bone marrow bx in 2023 showed trilineage normal bone marrow, diagnosis CCUS. Abd US neg for cirrhosis or splenomegaly. Was on po Fe but then had iron overload after 3 months hgb 06/29 - 9.5 #Constipation Continue a bowel regimen on dc prn for constiaption. 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 #HTN Continue losartan and Chlorthalidone/KCl Patient discharged home 07/03 w/ outpatient therapy. Admission HPI Per Admitting Provider William Jiménez is an 89 year old male who presents to the ER from [facility] due to concern for confusion from a family member and left knee swelling and pain. He was recently admitted From June 19 - 2024 for left total knee arthroplasty. He was discharged to [facility] for rehabilitation. He reports taking oxycodone before talking to his daughter and he is sure that this made him more confused over the phone. He currently feels mostly back to his baseline. He notes only have one small bowel movement following his surgery and feels constipated. He is also concerned about the size and swelling of his left leg as this didn't happen with his right knee replacements. He has chronic thrombocytopenia with TET2 mutation. Placed on aspirin post operatively for VTE Prophylaxis. With the swelling he has been having significant right calf pain. Discharge Exam Constitutional WD/WN, vitals as above Eyes PERRL, conjunctivae normal, anicteric sclerae Respiratory breathing unlabored Cardiovascular well perfused Psychiatric A+Ox3, euthymic affect Discharge Plan Discharge Items Patient Disposition: Home - Home Health Services Reason For Visit: ALTERED MENTAL STATE,LFT KNEE SWELLING/PAIN,CONSTI Discharge Diagnosis: Altered mental status, Knee replacement Activity: Resume your previous activity Non-emergency contact: Primary Care Provider and Surgeon Call non-emergency contact if: you have any medication questions, your symptoms worsen and you have a fever Follow-up/Referrals: Laila Morfin MD [Primary Care Provider] - 07/11/24 3:00 pm Diet: Carb Consistent or DM2 Addtl Attending Provider Instructions: Mr. Jiménez, You were recently hospitalized for a change in your mental status and worsened knee pain. The increased in confusion was secondary to using narcotics. You were evaluated by Dr. Rogers, your surgeon who deemed your knee to be healing properly. Please see recommendations below regarding your discharge. Please take Eliquis 2.5mg twice daily for the next 21 days. Please use Tylenol 1000mg every 8 hours as needed for pain. Please resume the remainder of your medications. Please follow up with Dr. Rogers at your upcoming appointment. Please follow up with your PCP within 1-2 weeks of discharge. You may shower but do not submerge your knee in a bath. You will be receiving physical therapy and occupational therapy at home. If you develop any fevers, chest pain, shortness of breath please report back to the ER for further evaluation. Sincerely, Clara Gardner PA-C Pending Studies at Discharge: No Stand-Alone Forms: My [facility], Smoking Cessation Medications and DC Order Prescriptions: New Eliquis 2.5 mg Tablet 2.5 mg PO BID Qty: 42 0RF Continued cyanocobalamin (vitamin B-12) 1,000 mcg capsule 2,000 mcg PO QAM Hold Instructions: SURGERY Fiasp U-100 Insulin 100 unit/mL solution See Rx Instructions subcut DAILY MDD 24 units Qty: 30 3RF Rx Instructions: Inject prior to each meal and before bedtime; per sliding scale Creon 36,000-114,000- 180,000 unit capsule,delayed release(DR/EC) 2 cap PO UD Qty: 240 1RF Rx Instructions: TAKE 2 CAPSULES WITH MEALS AND 1 CAPSULE WITH SNACK DIRECTED insulin glargine [Lantus U-100 Insulin] 100 unit/mL solution 15 unit SQ HS Qty: 20 3RF fluticasone propionate 50 mcg/actuation spray,suspension 1 spray intranasal BID Rx Instructions: USE ONE SPRAY NASALLY TWICE A DAY prednisolone acetate 1 % drops,suspension 1 drops OP Q2D ketorolac 0.5 % drops 1 drops OPB QAM biotin 5,000 mcg Tablet,Disintegrating 5,000 mcg PO QAM calcitriol 0.25 mcg capsule 0.25 mcg PO QAM escitalopram oxalate 20 mg tablet 20 mg PO QAM potassium chloride 20 mEq tablet extended release 40 meq PO QAM amoxicillin 500 mg tablet 2,000 mg PO ONCE PRN (Reason: prior to dental procedure) Rx Instructions: 4 tabs 1 hour prior to Dentist chlorthalidone 25 mg Tablet 25 mg PO DAILY acetaminophen 500 mg capsule 1,000 mg PO Q8H PRN (Reason: PAIN,MILD) diclofenac sodium 1 % gel 4 g topical Q6 PRN (Reason: JOINT PAIN) PreserVision AREDS 2,148 mcg-113 mg-45 mg-17.4mg Tablet 1 tab PO DAILY magnesium oxide 400 mg magnesium Tablet 400 mg PO DAILY olmesartan 20 mg Tablet 10 mg PO DAILY Discontinued aspirin 81 mg Tablet,Delayed Release (Dr/Ec) 81 mg PO BID 45 Days Qty: 90 0RF Rx Instructions: Take to prevent blood clots. acetaminophen 325 mg Tablet 650 mg PO Q4 PRN (Reason: Fever Or Pain) Rx Instructions: FOR TEMP=>100 ALL PAIN oxycodone 5 mg Tablet 10 mg PO Q6H PRN (Reason: .SEVERE PAIN) oxycodone 5 mg tablet 5 mg PO Q6H PRN (Reason: .MODERATE PAIN) No Action (DME) blood glucose control, normal [OneTouch Verio Mid Control] Solution See Rx Instructions .Route Qty: 1 1RF Rx Instructions: use glucometer to calibrate Dexcom (DME) needle (disp) 18 G [BD Regular Bevel [place]] 18 gauge x 1" needle See Rx Instructions .ROUTE .MEDSUPPLY Qty: 50 0RF Rx Instructions: use once weekly with testosterone (DME) OneTouch Verio test strips Strip See Rx Instructions .ROUTE .MEDSUPPLY Qty: 100 3RF Rx Instructions: Test blood sugar once daily (DME) BD SafetyGlide Needle 25 gauge x 5/8" needle See Rx Instructions .Route Qty: 50 0RF Rx Instructions: use 1 weekly to give testosterone (DME) syringe (disposable) [BD Luer-Yee Syringe] 3 mL syringe See Rx Instructions .Route Qty: 100 0RF Rx Instructions: use 1 weekly for testosterone injections (DME) BD SafetyGlide Syringe 3 mL 25 x 5/8" syringe See Rx Instructions .Route Qty: 12 3RF Rx Instructions: Use one per week to inject testosterone (DME) BD Veo Insulin Syr (half unit) 0.3 mL 31 gauge x 15/64" syringe See Rx Instructions .ROUTE .MEDSUPPLY Qty: 600 3RF Rx Instructions: for use with insulin 6 times per day. [id number] 1/2 ml divisions (DME) Dexcom G7 Sensor Device See Rx Instructions .Route Rx Instructions: Change sensor every 10 days Discharge Orders: Discharge Order (Routine); Ordered 07/03/24 Ordered By: Clara Gardner Admission Data Admit Date/Time: 06/25/24 12:30 Attending Provider: Otilio Hope Admit Provider: Otilio De La Rosa Primary Care Provider: Laila Morfin V. Other Providers: Otilio De La Rosa; Feng Jenkins; Ramone Rogers Other Interventions: Discharge Summary Assessment (RN) Last Done: 07/03/24 11:40 Hospital Stay Data Consultations 06/24/24 00:12 ED Decision to Admit Stat 06/24/24 03:38 Consult Orthopedic Surgery Routine Diagnostic Imagining Performed 06/24/24 00:12 CT head/brain wo con Stat 06/24/24 00:59 US venous doppler LE LT Stat Pending Results Patient Have Any Pending Studies at Discharge: No Discharge Instructions Given to Patient (Per Discharging Provider) Mr. Jiménez, Anderson were recently hospitalized for a change in your mental status and worsened knee pain. The increased in confusion was secondary to using narcotics. You were evaluated by Dr. Rogers, your surgeon who deemed your knee to be healing properly. Please see recommendations below regarding your discharge. Please take Eliquis 2.5mg twice daily for the next 21 days. Please use Tylenol 1000mg every 8 hours as needed for pain. Please resume the remainder of your medications. Please follow up with Dr. Rogers at your upcoming appointment. Please follow up with your PCP within 1-2 weeks of discharge. You may shower but do not submerge your knee in a bath. You will be receiving physical therapy and occupational therapy at home. If you develop any fevers, chest pain, shortness of breath please report back to the ER for further evaluation. Sincerely, Clara Gardner PA-C Supervising Physician Co-Signing Physician Notes Attending Attestation and Discharge Note: Chart reviewed, discharge care plan d/w PAM Gardner. I agree w/ the maldonado components of her discharge documentation. Of note - I did not perform a bedside visit or physical exam on day of discharge. 89yo male - recent L TKR by Dr Ramone Rogers on 06/19/24 - presented to the ER from [facility] where he was undergoing rehab with familial concerns for confusion as well as severe L knee pain. Seen by Dr Rogers - there were no orthopedic concerns about his L TKR. Confusion was thought 2nd to toxic effects from oxycodone. Mental status improved while here. Other issues addressed while here - AROLDO (admit Cr 1.9, [facility] constipation, control of left knee pain. DVT proph - aspirin changed to low-dose Eliquis 2.5mg BID. Will complete at least 3 more weeks of such. Initially the plan was for him to return to SNF to finish his rehab. However, his insurance denied SNF. Family decided to appeal the denial. While awaiting the final answer from the insurance his family decided to take him home instead. Thus, patient is returning home with his son who will provide 11/10 assistance. Patient to attend [facility] (outpatient PT) for ongoing therapy for the recent L TKR. Otilio Hope MD Total Time Total Time Spent Total Time Spent (In Minutes): 50 Total Time Includes: Examination of the Patient, Discharge Planning, Medication Reconciliation and Communication With Other Providers Coding Level of Care Code 55334 INP/OBS DISCH >30 MIN Diagnoses Acute encephalopathy G93.40 AROLDO (acute kidney injury) N17.9 Thrombocytopenia D69.6 Status post left knee replacement Z96.652
== END 2024-07-03 14:15 | disposition home health service (06) | DRG 92 ==
LOC: 3N 21:58 → ED 21:58 → SUATTDRO 06-24 01:21 → 3N 06-24 02:58 → SUATTDRO 06-25 12:30